=== PATIENT | female | born 1955 | race Caucasian/White ===

== ENCOUNTER 2017-08-09 21:27 | Emergency (ER) | payer OTHER ==
--- NOTE | 2017-08-09 21:49 | ERPHSYRPT ---
- History of Present Illness Time Seen by Provider: 08/09/17 21:40 Source: patient Exam Limitations: no limitations Physician History: 61 y/o female comes to the ER with complaints of fever and chills for the past few days. Pt also admits to having nausea, but no vomiting, shortness of breath , abdominal pain, diarrhea, or urinary symptoms. Pt states having mild cough with diffuse muscle aches and weakness. Pt was seen by her PCP and was put on levaquin for sinusitis. Timing/Duration: day(s) Fever Severity: mild Fever Therapy PROVER: Acetaminophen Associated Symptoms: cough, nausea/vomiting Allergies/Adverse Reactions: cefaclor [From Ceclor] Allergy (Verified 08/09/17 22:11) cephalexin monohydrate [From Keflex] Allergy (Verified 08/09/17 22:11) erythromycin base [Erythromycin Base] Allergy (Verified 08/09/17 22:11) erythromycin estolate [From Ilosone] Allergy (Verified 08/09/17 22:11) iron Allergy (Verified 08/09/17 22:11) latex Allergy (Verified 08/09/17 22:11) oxytetracycline [From Terramycin] Allergy (Verified 08/09/17 22:11) oxytetracycline HCl [From Terramycin] Allergy (Verified 08/09/17 22:11) Penicillins Allergy (Verified 08/09/17 22:11) Sulfa (Sulfonamide Antibiotics) Allergy (Verified 08/09/17 22:11) Home Medications: Levothyroxine Sodium 50 Mcg [Synthroid 50 Mcg] 50 mcg PO DAILY 12/16/12 [ History] Atorvastatin Calcium [Lipitor] 20 mg PO DAILY 08/09/17 [History] Citalopram Hydrobromide 20 mg* [ceLEXa 20 MG] 20 mg PO DAILY 08/09/17 [ History] Isosorbide Mononitrate [Isosorbide Mononitrate ER] 30 mg DAILY 08/09/17 [History ] Lisinopril [Zestril] 2.5 mg PO DAILY 08/09/17 [History] Hx Tetanus, Diphtheria Vaccination/Date Given: No Hx Influenza Vaccination/Date Given: Yes Hx Pneumococcal Vaccination/Date Given: No - Review of Systems Constitutional: Fever, Chills, Weakness Eyes: No Symptoms Ears, Nose, & Throat: No Symptoms, No Throat Swelling Respiratory: Cough, No Dyspnea, No Dyspnea on Exertion (SEBASTIAN) Cardiac: No Chest Pain, No Edema, No Syncope Abdominal/Gastrointestinal: No Abdominal Pain, No Nausea, No Vomiting, No Diarrhea Genitourinary Symptoms: No Dysuria Musculoskeletal: Myalgias, No Back Pain, No Neck Pain Skin: No Symptoms, No Rash Neurological: No Dizziness, No Focal Weakness, No Sensory Changes Psychological: No Symptoms Endocrine: No Symptoms All Other Systems: Reviewed and Negative - Past Medical History Pertinent Past Medical History: Yes Endocrine Medical History: Hyperthyroidism Psycho-Social History: Depression - Past Surgical History Past Surgical History: Yes Female Surgical History: Hysterectomy Other Surgical History: TUBES IN EARS X2, TONSILLECTOMY, EAR SURGERY-EAR LOBE REPAIRED, CYST REMOVED OFF TAILBONE, - Social History Smoking Status: Never smoker Exposure to second hand smoke: No Drug Use: none Patient Lives Alone: No - Nursing Vital Signs Nursing Vital Signs: Initial Vital Signs Temperature 102.9 F 08/09/17 21:59 Pulse Rate 90 08/09/17 21:59 Respiratory Rate 18 08/09/17 21:59 Blood Pressure 167/81 08/09/17 21:59 O2 Sat by Pulse Oximetry 98 08/09/17 21:59 Pain Scale Pain Intensity 0 - Physical Exam General Appearance: no apparent distress, alert Eye Exam: PERRL/EOMI ENT Exam: normal ENT inspection, No pharyngeal erythema, No tonsillar exudate Neck Exam: normal inspection, non-tender, supple, full range of motion, No meningismus Respiratory Exam: normal breath sounds, chest non-tender, lungs clear, no respiratory distress Cardiovascular/Chest Exam: normal heart sounds, regular rate/rhythm, No murmur, No edema Gastrointestinal/Abdominal Exam: soft, non tender, no distention Extremity Exam: non-tender, normal range of motion, normal inspection, normal capillary refill Neurologic Exam: alert, oriented x 3, cooperative, travel writer II-XII nml as tested, normal mood/affect, sensation nml, No motor deficits Skin Exam: normal color, warm, dry, No rash - Course Nursing assessment & vital signs reviewed: Yes Ordered Tests: Active Orders 24 hr Category Date Time Status IV Insertion STAT Care 08/09/17 21:45 Active CHEST 2 VIEWS (PA AND LAT) Stat Exams 03/01/18 22:17 Taken CHEST WITHOUT CONTRAST [CT] Stat Exams 08/09/17 23:59 Taken BLOOD CULTURE Stat Lab 08/09/17 22:09 Received CBC W DIFF Stat Lab 08/09/17 22:08 Completed CMP Stat Lab 08/09/17 22:08 Completed CRP, HIGH SENSITIVITY Stat Lab 08/09/17 22:30 Completed CULTURE, THROAT Stat Lab 08/09/17 22:08 Received CULTURE,URINE Stat Lab 08/09/17 22:08 Received Manual Differential NC Stat Lab 08/09/17 22:08 Completed [place] Screen Stat Lab 08/09/17 22:08 Completed SED RATE [Erythrocyte Sedimentation Rate] Stat Lab 08/09/17 22:30 Completed STREP SCREEN-BETA A Stat Lab 08/09/17 22:08 Completed T4 Stat Lab 08/09/17 22:30 Completed TSH, 3RD Generation Stat Lab 08/09/17 22:30 Completed UA W/ MICROSCOPIC Stat Lab 08/09/17 22:08 Completed Medication Summary Generic Name Dose Route Start Last Admin Trade Name Freq PRN Reason Stop Dose Admin Levofloxacin/Dextrose 500 mg in 100 mls @ 100 mls/hr 08/10/17 01:10 08/10/17 01:52 Levofloxacin 500mg/100ml D5w IV 08/10/17 02:09 100 mls/hr STAT STA Administration Discontinued Medications Generic Name Dose Route Start Last Admin Trade Name Freq PRN Reason Stop Dose Admin Acetaminophen 1,000 mg 08/09/17 21:52 08/09/17 22:07 Tylenol Extra Strength 500 Mg PO 08/09/17 21:53 1,000 mg STAT STA Administration Acetaminophen Confirm 08/09/17 22:05 Tylenol Extra Strength 500 Mg Administered 08/09/17 22:06 Dose 1,000 mg .ROUTE .STK-MED ONE Metronidazole 500 mg in 100 mls @ 200 mls/hr 08/10/17 01:10 08/10/17 01:23 Flagyl 500 Mg Ivpb IV 08/10/17 01:39 200 mls/hr STAT STA Administration Metronidazole Confirm 08/10/17 01:21 Flagyl 500 Mg Ivpb Administered 08/10/17 01:22 Dose 500 mg in 100 mls @ ud IV .STK-MED ONE Levofloxacin/Dextrose Confirm 08/10/17 01:40 Levofloxacin 500mg/100ml D5w Administered 08/10/17 01:41 Dose 500 mg in 100 mls @ ud IV .STK-MED ONE Ibuprofen 600 mg 08/09/17 23:36 08/09/17 23:42 Motrin 100 Mg/5 Ml PO 08/09/17 23:37 600 mg STAT ONE Administration Ibuprofen Confirm 08/09/17 23:39 Motrin 100 Mg/5 Ml Administered 08/09/17 23:40 Dose 100 mg .ROUTE .STK-MED ONE Ondansetron HCl 4 mg 08/09/17 21:51 08/09/17 22:09 Zofran 4 Mg/2 Ml Vial IV 08/09/17 21:52 4 mg STAT ONE Administration Ondansetron HCl Confirm 08/09/17 22:08 Zofran 4 Mg/2 Ml Vial Administered 08/09/17 22:09 Dose 4 mg .ROUTE .STK-MED ONE Lab/Rad Data: Laboratory Result Diagrams 08/09/17 22:08 08/09/17 22:08 Laboratory Results 08/09/17 08/09/17 08/09/17 Range/Units 22:30 22:30 22:08 WBC (4.0-10.5) K/mm3 RBC (4.1-5.4) M/mm3 Hgb (12.0-16.0) gm/dl Hct (35-47) % MCV (78-100) fl MCH (26-32) pg MCHC (32-36) g/dl RDW (11.5-14.0) % Plt Count (150-450) K/mm3 MPV (6-9.5) fl Segmented Neutrophils (36.0-66.0) % Band Neutrophils (0.0-2.0) % Lymphocytes (Manual) (24-44) % Monocytes (Manual) (0.0-12.0) % Eosinophils (Manual) (0.00-3.0) % Differential Comment Atypical Lymphocytes % Platelet Estimate (NORMAL) ESR 3 (0-20) mm/hr Sodium (136-145) mEq/L Potassium (3.5-5.1) mEq/L Chloride (98-107) mEq/L Carbon Dioxide (21-32) mEq/L Anion Gap (5-15) MEQ/L BUN (9-20) mg/dL Creatinine (0.55-1.30) mg/dl Estimated GFR ML/MIN Glucose (70-110) MG/DL Calcium (8.5-10.1) mg/dL Total Bilirubin (0.2-1.0) mg/dL AST (15-37) U/L ALT (12-78) U/L Alkaline Phosphatase (46-116) U/L C-React Prot High Sens 6.38 H (0.0-3.0) mg/L Serum Total Protein (6.4-8.2) gm/dL Albumin (3.4-5.0) g/dL Thyroxine (T4) 10.6 (4.7-13.3) UG/DL TSH 3rd Generation 0.607 (0.358-3.740) mIU/L Ur Collection Type Urine Color (YELLOW) Urine Appearance (CLEAR) Urine pH (5-6) Ur Specific [place] (1.005-1.025) Urine Protein (Negative) Urine Ketones (NEGATIVE) Urine Blood (0-5) Matt/ul Urine Nitrite (NEGATIVE) Urine Bilirubin (NEGATIVE) Urine Urobilinogen (0-1) mg/dL Ur Leukocyte Esterase (NEGATIVE) Urine Microscopic RBC (0-2) /HPF Urine Microscopic WBC (0-5) /HPF Ur Epithelial Cells (FEW) /HPF Calcium Oxalate Crystal (NEGATIVE) /HPF Urine Bacteria (NEGATIVE) /HPF Urine Mucus (NEGATIVE) /HPF Urine Culture Reflexed (NO) Urine Glucose (NEGATIVE) mg/dL Monoscreen (Negative) Influenza Type A Ag NEGATIVE (NEGATIVE) Influenza Type B Ag NEGATIVE (NEGATIVE) RSV (PCR) NEGATIVE (Negative) Streptococcus Screen (Negative) Specimen Received 08/09/17 08/09/17 08/09/17 Range/Units 22:08 22:08 22:08 WBC (4.0-10.5) K/mm3 RBC (4.1-5.4) M/mm3 Hgb (12.0-16.0) gm/dl Hct (35-47) % MCV (78-100) fl MCH (26-32) pg MCHC (32-36) g/dl RDW (11.5-14.0) % Plt Count (150-450) K/mm3 MPV (6-9.5) fl Segmented Neutrophils (36.0-66.0) % Band Neutrophils (0.0-2.0) % Lymphocytes (Manual) (24-44) % Monocytes (Manual) (0.0-12.0) % Eosinophils (Manual) (0.00-3.0) % Differential Comment Atypical Lymphocytes % Platelet Estimate (NORMAL) ESR (0-20) mm/hr Sodium (136-145) mEq/L Potassium (3.5-5.1) mEq/L Chloride (98-107) mEq/L Carbon Dioxide (21-32) mEq/L Anion Gap (5-15) MEQ/L BUN (9-20) mg/dL Creatinine (0.55-1.30) mg/dl Estimated GFR ML/MIN Glucose (70-110) MG/DL Calcium (8.5-10.1) mg/dL Total Bilirubin (0.2-1.0) mg/dL AST (15-37) U/L ALT (12-78) U/L Alkaline Phosphatase (46-116) U/L C-React Prot High Sens (0.0-3.0) mg/L Serum Total Protein (6.4-8.2) gm/dL Albumin (3.4-5.0) g/dL Thyroxine (T4) (4.7-13.3) UG/DL TSH 3rd Generation (0.358-3.740) mIU/L Ur Collection Type VOID Urine Color YELLOW (YELLOW) Urine Appearance CLEAR (CLEAR) Urine pH 5.0 (5-6) Ur Specific [place] 1.020 (1.005-1.025) Urine Protein NEGATIVE (Negative) Urine Ketones NEGATIVE (NEGATIVE) Urine Blood 50 (0-5) Matt/ul Urine Nitrite NEGATIVE (NEGATIVE) Urine Bilirubin NEGATIVE (NEGATIVE) Urine Urobilinogen NORMAL (0-1) mg/dL Ur Leukocyte Esterase NEGATIVE (NEGATIVE) Urine Microscopic RBC 2-5 (0-2) /HPF Urine Microscopic WBC 0-2 (0-5) /HPF Ur Epithelial Cells MODERATE (FEW) /HPF Calcium Oxalate Crystal 0-2 (NEGATIVE) /HPF Urine Bacteria MODERATE (NEGATIVE) /HPF Urine Mucus MODERATE (NEGATIVE) /HPF Urine Culture Reflexed YES (NO) Urine Glucose NEGATIVE (NEGATIVE) mg/dL Monoscreen NEGATIVE (Negative) Influenza Type A Ag (NEGATIVE) Influenza Type B Ag (NEGATIVE) RSV (PCR) (Negative) Streptococcus Screen NEGATIVE (Negative) Specimen Received 08/09/17220908/09/17 08/09/17 Range/Units 22:08 22:08 WBC 3.2 L (4.0-10.5) K/mm3 RBC 4.65 (4.1-5.4) M/mm3 Hgb 14.8 (12.0-16.0) gm/dl Hct 42.4 (35-47) % MCV 91.2 (78-100) fl MCH 31.8 (26-32) pg MCHC 34.9 (32-36) g/dl RDW 12.7 (11.5-14.0) % Plt Count 126 L (150-450) K/mm3 MPV 9.7 H (6-9.5) fl Segmented Neutrophils 58 (36.0-66.0) % Band Neutrophils 16 H (0.0-2.0) % Lymphocytes (Manual) 7 L (24-44) % Monocytes (Manual) 10 (0.0-12.0) % Eosinophils (Manual) 4 H (0.00-3.0) % Differential Comment NORMAL Atypical Lymphocytes 5 % Platelet Estimate NORMAL (NORMAL) ESR (0-20) mm/hr Sodium 138 (136-145) mEq/L Potassium 4.3 (3.5-5.1) mEq/L Chloride 101 (98-107) mEq/L Carbon Dioxide 26.3 (21-32) mEq/L Anion Gap 14.6 (5-15) MEQ/L BUN 12 (9-20) mg/dL Creatinine 1.23 (0.55-1.30) mg/dl Estimated GFR 47 ML/MIN Glucose 108 (70-110) MG/DL Calcium 9.0 (8.5-10.1) mg/dL Total Bilirubin 0.70 (0.2-1.0) mg/dL AST 33 (15-37) U/L ALT 28 (12-78) U/L Alkaline Phosphatase 90 (46-116) U/L C-React Prot High Sens (0.0-3.0) mg/L Serum Total Protein 7.3 (6.4-8.2) gm/dL Albumin 3.8 (3.4-5.0) g/dL Thyroxine (T4) (4.7-13.3) UG/DL TSH 3rd Generation (0.358-3.740) mIU/L Ur Collection Type Urine Color (YELLOW) Urine Appearance (CLEAR) Urine pH (5-6) Ur Specific [place] (1.005-1.025) Urine Protein (Negative) Urine Ketones (NEGATIVE) Urine Blood (0-5) Matt/ul Urine Nitrite (NEGATIVE) Urine Bilirubin (NEGATIVE) Urine Urobilinogen (0-1) mg/dL Ur Leukocyte Esterase (NEGATIVE) Urine Microscopic RBC (0-2) /HPF Urine Microscopic WBC (0-5) /HPF Ur Epithelial Cells (FEW) /HPF Calcium Oxalate Crystal (NEGATIVE) /HPF Urine Bacteria (NEGATIVE) /HPF Urine Mucus (NEGATIVE) /HPF Urine Culture Reflexed (NO) Urine Glucose (NEGATIVE) mg/dL Monoscreen (Negative) Influenza Type A Ag (NEGATIVE) Influenza Type B Ag (NEGATIVE) RSV (PCR) (Negative) Streptococcus Screen (Negative) Specimen Received - Progress Progress: improved Progress Note: 08/10/17 00:52 The repeat temp after receiving tylenol was still high at 102. However, after the patient received motrin, patient's temp came down to 99.6. Pt was given zofran which helped with the nausea. Pt has a white count of 3.2 and a platelet count of 126. The rest of fever workup has been unremarkable, including negative mono, RSV, influenza, rapid strep, CXR and UA. The CXR is unremarkable. The CT chest shows a 2 mm left lower lobe pulmonary nodules. 08/10/17 01:[address] abd/pelvis shows a small area of sigmoid diverticulitis. The patient will be started on levaquin and flagyl. 08/10/17 02:05 Pt will be sent home on flagyl and levaquin for diverticulitis - Departure Time of Disposition: 02:06 Departure Disposition: Home Clinical Impression: Diverticulitis Fever Qualifiers: Fever type: unspecified Qualified Code(s): R50.9 - Fever, unspecified Condition: Stable Critical Care Time: No Referrals: TONO GARCIAS [Primary Care Provider] - Instructions: Fever, Adult (DC), Diverticulitis (DC) Additional Instructions: Return to the ER if you should have worsening abdominal pain, nausea, vomiting, fever or chills. Finish the antibiotics until completion. Prescriptions: Levofloxacin [Levaquin] 500 mg PO DAILY #7 tablet Metronidazole [Flagyl] 500 mg PO BID #14 tablet
[2017-08-09] MEDS ORDERED: Zofran 4 MG/2 ML VIAL IV ONE (21:51)
[2017-08-09] MEDS ORDERED: TYLENOL EXTRA STRENGTH 500 MG PO STA (21:52)
[2017-08-09] MEDS ORDERED: TYLENOL EXTRA STRENGTH 500 MG ONE (22:05)
[2017-08-09] MEDS ORDERED: Zofran 4 MG/2 ML VIAL ONE (22:08)
[2017-08-09 22:13] LABS: Granulocyte Absolute (ANC) 2.26 (1.4-6.9); Hematocrit 42.4 % (35-47); Hemoglobin 14.8 gm/dl (12.0-16.0); Mean Cell Volume 91.2 fl (78-100); Mean Corpuscular Hemoglobin 31.8 pg (26-32); Mean Corpuscular Hgb Concent. 34.9 g/dl (32-36); Mean Platelet Volume 9.7 fl (6-9.5); Platelet Count 126 K/mm3 (150-450); Red Blood Count 4.65 M/mm3 (4.1-5.4); Red Cell Distribution Width 12.7 % (11.5-14.0); White Blood Count 3.2 K/mm3 (4.0-10.5)
[2017-08-09 22:39] LABS: ALBUMIN 3.8 g/dL (3.4-5.0); ANION GAP 14.6 MEQ/L (5-15); BILIRUBIN,TOTAL 0.7 mg/dL (0.2-1.0); Carbon Dioxide 26.3 mEq/L (21-32); Creatinine 1 1.23 mg/dl (0.55-1.30); Potassium 4.3 mEq/L (3.5-5.1); Total Protein 7.3 gm/dL (6.4-8.2)
[2017-08-09 22:51] LABS: INFLUENZA A NEGATIVE (NEGATIVE); INFLUENZA B NEGATIVE (NEGATIVE); RESPIRATORY SYNCTIAL VIRUS NEGATIVE (Negative)
[2017-08-09 22:57] LABS: Appearance CLEAR (CLEAR); Bilirubin NEGATIVE (NEGATIVE); Blood 50 Ery/ul (0-5); Glucose NEGATIVE (NEGATIVE); Ketones NEGATIVE (NEGATIVE); Leukocyte Esterase NEGATIVE (NEGATIVE); Nitrite NEGATIVE (NEGATIVE); Protein,Urine Dip NEGATIVE (Negative); Urobilinogen NORMAL mg/dL (0-1)
[2017-08-09 22:58] LABS: Bacteria MODERATE /HPF (NEGATIVE); CALCIUM OXALATE CRYSTALS 0-2 /HPF (NEGATIVE); Epithelial Cells MODERATE /HPF (FEW); Mucus MODERATE /HPF (NEGATIVE); WBC 0-2 /HPF (0-5)
[2017-08-09 23:20] LABS: ATYPICAL LYMPHS 5 %; BAND 16 % (0.0-2.0); Eosinophil 4 % (0.00-3.0); Lymphocytes 7 % (24-44); Monocyte 10 % (0.0-12.0); Neutrophils 58 % (36.0-66.0); Total Cells Counted 100
[2017-08-09 23:21] LABS: Platelet Estimate NORMAL (NORMAL)
[2017-08-09] MEDS ORDERED: Motrin 100 MG/5 ML PO ONE (23:36)
[2017-08-09] MEDS ORDERED: Motrin 100 MG/5 ML ONE (23:39)
[2017-08-09 23:47] LABS: T4 10.6 UG/DL (4.7-13.3); TSH, 3RD Generation 0.607 mIU/L (0.358-3.740)
[2017-08-10] MEDS ORDERED: FLAGYL 500 MG IVPB 500 MG/100 ML BAG IV STA (01:10)
[2017-08-10] MEDS ORDERED: Levofloxacin 500MG/100ML D5W 500 MG/100 ML BAG IV STA (01:10)
[2017-08-10] MEDS ORDERED: FLAGYL 500 MG IVPB 500 MG/100 ML BAG IV ONE (01:21)
[2017-08-10] MEDS ORDERED: Levofloxacin 500MG/100ML D5W 500 MG/100 ML BAG IV ONE (01:40)
[2017-08-10 03:02] VITALS: BP 135/75; PULSE 70; O2SAT 97
--- NOTE | 2017-08-10 20:36 | XRAY ---
Exam: Two-view chest from 08/09/2017. Comparison: AP upright portable chest film from 12/16/2012. Indication: Fever, no other chest complaints. Findings: Upright PA and lateral chest films are submitted for evaluation. The transverse heart size appears borderline enlarged. There appears to be a small calcified lymph node or granuloma adjacent to the anterior aspect of the aortic arch. Some small granulomatous calcifications overlie the inferior margin of the left hilum and the left lung base. The remainder the tomer and mediastinal structures appears unremarkable and unchanged from 12/16/2012. There is average inflation of the lungs. Slight elevation/eventration of the anterior aspect of the right hemidiaphragm is seen. No air space infiltrates, abnormal soft tissue lung nodularity, vascular congestion, pneumothorax, or pleural fluid is seen. The bones are demineralized. No acute osseous process is seen. Impression: 1. Borderline cardiomegaly representing no significant interval change. I see no findings of heart failure or pneumonia. No other acute lung disease is seen. There is evidence of some old granulomatous disease on the left.
--- NOTE | 2017-08-10 23:19 | XRAY ---
Exam: CT of the chest without IV contrast from 08/09/2017. CTDI: 6.47 Comparison: Two-view chest series from 08/09/2017. Indication: 61-year-old female with fever, nausea, history of bleeding ulcer in 2016. Surgical history includes prior hysterectomy and appendectomy. Technique: Non-IV contrast axial images were obtained through the chest. Reconstructed coronal and sagittal images were created and reviewed. Findings: The heart size is slightly enlarged without pericardial effusion. I see no abnormal bulky perihilar or mediastinal lymphadenopathy. The thyroid gland appears grossly unremarkable. Some granulomatous calcifications are seen within the left side of the superior mediastinum, adjacent to the aortic arch, the AP window, left hilum, and the left lower lobe. The central airways appear open. No air space infiltrates, pneumothorax, or pleural effusion is seen. There is a 2 mm subpleural nonspecific soft tissue nodule posterolaterally at the left lung base on axial image #3 and a second similar subpleural 2 mm soft tissue nodule posterior laterally at left lung base on axial image #38. These are of doubtful significance. Minimal linear scarring/atelectasis is seen at both lung bases. There is also a 3.5 mm noncalcified nodule within the peripheral right upper lung field, best seen on coronal image #38, although I believe it is partially seen on axial image #17 as well. This also is nonspecific and probably of doubtful significance. If the patient is at low risk for developing lung cancer, no follow-up is needed. If the patient is at high risk, an optional CT could be obtained in 12 months. The upper abdomen reveals an unremarkable appearance of the adrenal glands. There is marked atrophy of the left kidney, which also contains a tiny punctate calcification within its central aspect. Numerous granulomatous calcifications are seen within the spleen. Impression: 1. Minimal cardiomegaly. 2. Old healed granulomatous disease on the left and some minor linear scarring/plate atelectasis at both lung bases are seen. 3. No active lung disease is seen. 3. A 3.5 mm nodule is seen within the anterior lateral right upper lung field on axial image #17 and 2 additional 2 mm subpleural soft tissue nodules are seen posterior laterally within the left lower lobe on axial images #33 in #38. These are of doubtful significance. However, see above discussion.
--- NOTE | 2017-08-10 23:52 | XRAY ---
Exam: CT of the abdomen and pelvis without IV contrast from 08/09/2017. Comparison: CT of the abdomen without and with IV contrast from 07/21/2011. Indication: 61-year-old female with fever, nausea, history of prior bleeding ulcer in 2016; history of prior appendectomy and hysterectomy. Technique: Non-IV contrast axial images were obtained through the abdomen and pelvis without IV contrast. Reconstructed coronal and sagittal images were created and reviewed. Findings: Please see CT of the chest report for findings within the lower thorax. The liver appears unremarkable. The gallbladder is partially distended and reveals no dense calcifications within it. The spleen measures 11.9 cm in greatest cross section suggesting that it is at the upper limits of normal in size. Numerous calcified granulomas are seen within the spleen. The pancreas and adrenal glands appear unremarkable. The right kidney appears of unremarkable size and is remarkable for some small peripelvic cysts. These have regressed in size as compared to the CT from 07/21/2011 representing improvement. The left kidney is dysplastic and markedly atrophic representing no change. A punctate calcification is seen within the left kidney. The right ureter appears of normal diameter and reveals no ureterolith. The urinary bladder is partially distended and reveals no calcifications, mass, or bladder wall thickening. Mild tortuosity of the abdominal aorta is seen. Minimal atherosclerotic vascular calcification is seen within the distal abdominal aorta. No abdominal aortic aneurysm or abnormal retroperitoneal lymphadenopathy is seen. The anterior abdominal wall appears intact. No free intraperitoneal air is seen. The appendix is not seen within the right lower quadrant, consistent with patient's history of prior appendectomy. The bowel is not distended. Liquid and solid stool are seen within the colon. On axial images #59 and #60, there is a single sigmoid colon diverticulum with some adjacent fluid/edema. The possibility of focal diverticulitis is not excluded. I see no free air or drainable fluid collection. The uterus is surgically absent. Neither ovary is seen. Pelvic lymph nodes are not enlarged. No significant fluid is seen within the cul-de-sac, although there may be a scant amount on the right. The inguinal regions appear unremarkable. The skeleton reveals no acute fracture or aggressive bone lesion. Lower lumbar facet joint arthropathy is seen at L3-L4 and L4-L5. I also note mild multilevel degenerative disc disease at L1-L2, L2-L3, and L3-L4. L5 represents a transitional vertebra with sacralization on the left on the coronal images. Impression: 1. There is a single sigmoid diverticulum with surrounding edema within the deep left lower quadrant which most likely represents uncomplicated diverticulitis. See axial images #58 through #61. I see no bowel perforation or drainable fluid collection. 2. Dysplastic, markedly atrophied left kidney with tiny punctate calcification within it. This is unchanged from 2012. 3. The right kidney is remarkable for some small peripelvic cysts. These cysts have regressed in size as compared to 07/21/2011. I see no acute obstructive uropathy on the right. 4. Other incidental findings, as discussed above.
== END 2017-08-10 03:20 | disposition home or self-care (01) ==
LOC: ED 21:27
DX: K57.32 Diverticulitis of large intestine without perforation or abscess without bleeding (principal); R50.9 Fever, unspecified; R11.0 Nausea; R91.1 Solitary pulmonary nodule; R06.02 Shortness of breath; R05 Cough; R53.1 Weakness
CPT/HCPCS: 36000; 36415; 71046; 71250; 74176; 80053; 81000; 84436; 84443; 85025; 85652; 86140; 86308; 87040; 87070; 87086; 87430; 87631; 96365; 96367; 96374; 99284; J1956; J2405; A9270-GY

== ENCOUNTER 2017-08-10 14:12 | Inpatient (IN) | payer OTHER ==
--- NOTE | 2017-08-10 14:35 | ERPHSYRPT ---
- History of Present Illness Time Seen by Provider: 08/10/17 14:30 Historian: patient Exam Limitations: no limitations Patient Subjective Stated Complaint: her for nausea, loost stools, and fever at 1300 today, pt was dx at 0300 today for diverticulitis and is unable to keep meds down Triage Nursing Assessment: pt alert, walked in, resp easy, skin w/d/p. able to keep fluids down, mucus membranes moist, in no distress Physician History: 61 y/o female comes back to the ER with complaints of nausea, vomiting, diarrhea and fever that started this morning. Pt was seen last night and was diagnosed with sigmoid diverticulitis. Pt had improved last night but then this morning, patient vomited 3 times and had diarrhea 3 times. Pt had a temp of 100. Pt states that she is unable to keep anything down. Timing/Duration: today Activities at Onset: none Modifying Factors: Improves With: vomiting Associated Symptoms: loss of appetite, nausea, vomiting Allergies/Adverse Reactions: cefaclor [From Ceclor] Allergy (Verified 08/10/17 14:28) cephalexin monohydrate [From Keflex] Allergy (Verified 08/10/17 14:28) erythromycin base [Erythromycin Base] Allergy (Verified 08/10/17 14:28) erythromycin estolate [From Ilosone] Allergy (Verified 08/10/17 14:28) iron Allergy (Verified 08/10/17 14:28) latex Allergy (Verified 08/10/17 14:28) oxytetracycline [From Terramycin] Allergy (Verified 08/10/17 14:28) oxytetracycline HCl [From Terramycin] Allergy (Verified 08/10/17 14:28) Penicillins Allergy (Verified 08/10/17 14:28) Sulfa (Sulfonamide Antibiotics) Allergy (Verified 08/10/17 14:28) Home Medications: Levothyroxine Sodium 50 Mcg [Synthroid 50 Mcg] 50 mcg PO DAILY 12/16/12 [ History] Atorvastatin Calcium [Lipitor] 20 mg PO DAILY 08/09/17 [History] Citalopram Hydrobromide 20 mg* [ceLEXa 20 MG] 20 mg PO DAILY 08/09/17 [ History] Isosorbide Mononitrate [Isosorbide Mononitrate ER] 30 mg DAILY 08/09/17 [History ] Lisinopril [Zestril] 2.5 mg PO DAILY 08/09/17 [History] Hx Tetanus, Diphtheria Vaccination/Date Given: No Hx Influenza Vaccination/Date Given: Yes Hx Pneumococcal Vaccination/Date Given: No Immunizations Up to Date: Yes - Review of Systems Constitutional: Weakness, No Fever, No Chills Eyes: No Symptoms Ears, Nose, & Throat: No Symptoms Respiratory: No Cough, No Dyspnea Cardiac: No Chest Pain, No Edema, No Syncope Abdominal/Gastrointestinal: Nausea, Vomiting, Diarrhea, Appetite Changes, No Abdominal Pain Genitourinary Symptoms: No Dysuria Musculoskeletal: No Back Pain, No Neck Pain Skin: No Rash Neurological: No Dizziness, No Focal Weakness, No Sensory Changes Psychological: No Symptoms Endocrine: No Symptoms All Other Systems: Reviewed and Negative - Past Medical History Pertinent Past Medical History: Yes Cardiac History: High Cholesterol, Hypertension Endocrine Medical History: Hyperthyroidism Psycho-Social History: Depression - Past Surgical History Past Surgical History: Yes Female Surgical History: Hysterectomy Other Surgical History: TUBES IN EARS X2, TONSILLECTOMY, EAR SURGERY-EAR LOBE REPAIRED, CYST REMOVED OFF TAILBONE, - Social History Smoking Status: Never smoker Exposure to second hand smoke: No Drug Use: none Patient Lives Alone: No - Female History Hx Last Menstrual Period: post Hx Now: No - Nursing Vital Signs Nursing Vital Signs: Initial Vital Signs Temperature 98.1 F 08/10/17 14:17 Pulse Rate 87 08/10/17 14:17 Respiratory Rate 16 08/10/17 14:17 Blood Pressure 120/63 08/10/17 14:17 O2 Sat by Pulse Oximetry 96 08/10/17 14:17 Pain Scale Pain Intensity 0 - Physical Exam General Appearance: mild distress, alert Eye Exam: PERRL/EOMI, eyes nml inspection Ears, Nose, Throat Exam: normal ENT inspection, pharynx normal, moist mucous membranes Neck Exam: normal inspection, non-tender, supple, full range of motion Respiratory Exam: normal breath sounds, lungs clear, No respiratory distress Cardiovascular Exam: regular rate/rhythm, normal heart sounds Gastrointestinal/Abdomen Exam: soft, normal bowel sounds, No tenderness, No distention, No mass Back Exam: normal inspection, normal range of motion, No CVA tenderness, No vertebral tenderness Extremity Exam: normal inspection, normal range of motion, pelvis stable Neurologic Exam: alert, oriented x 3, cooperative, normal mood/affect, nml cerebellar function, sensation nml, No motor deficits Skin Exam: normal color, warm, dry SpO2: 96 Oxygen Delivery: Room Air - Course Nursing assessment & vital signs reviewed: Yes Ordered Tests: Active Orders 24 hr Category Date Time Status IV Insertion STAT Care 08/10/17 14:36 Active CBC W DIFF Stat Lab 08/10/17 14:58 Completed CMP Stat Lab 08/10/17 14:58 Received Manual Differential NC Stat Lab 08/10/17 14:58 Completed Medication Summary Generic Name Dose Route Start Last Admin Trade Name Freq PRN Reason Stop Dose Admin Sodium Chloride 1,000 mls @ 100 mls/hr 08/10/17 14:45 08/10/17 15:12 Sodium Chloride 0.9% 1000 Ml IV 09/09/17 14:44 100 mls/hr .Q10H ADOLFO Administration Discontinued Medications Generic Name Dose Route Start Last Admin Trade Name Freq PRN Reason Stop Dose Admin Ondansetron HCl 4 mg 08/10/17 14:36 08/10/17 15:12 Zofran 4 Mg/2 Ml Vial IV 08/10/17 14:37 4 mg STAT ONE Administration Ondansetron HCl Confirm 08/10/17 15:06 Zofran 4 Mg/2 Ml Vial Administered 08/10/17 15:07 Dose 4 mg .ROUTE .STK-MED ONE Lab/Rad Data: Laboratory Result Diagrams 08/10/17 14:58 Laboratory Results 08/10/17 Range/Units 14:58 WBC 2.5 L (4.0-10.5) K/mm3 RBC 4.54 (4.1-5.4) M/mm3 Hgb 14.6 (12.0-16.0) gm/dl Hct 41.3 (35-47) % MCV 91.0 (78-100) fl MCH 32.2 H (26-32) pg MCHC 35.4 (32-36) g/dl RDW 12.6 (11.5-14.0) % Plt Count 109 L (150-450) K/mm3 MPV 10.2 H (6-9.5) fl - Progress Progress: improved Progress Note: 08/10/17 15:23 The patient was not able to keep her antibiotics down with a diagnosis of diverticulitis. Pt has received a dose of levaquin and flagyl. Pt has been admitted to Dr Arana for diverticulitis. - Departure Time of Disposition: 15:24 Departure Disposition: In-patient Admission Clinical Impression: Diverticulitis Condition: Stable Critical Care Time: No Referrals: TONO ARANA [Primary Care Provider] -
[2017-08-10] MEDS ORDERED: Zofran 4 MG/2 ML VIAL IV ONE (14:36)
[2017-08-10] MEDS ORDERED: Zofran 4 MG/2 ML VIAL ONE (15:06)
[2017-08-10 15:10] LABS: Hematocrit 41.3 % (35-47); Hemoglobin 14.6 gm/dl (12.0-16.0); Mean Corpuscular Hemoglobin 32.2 pg (26-32); Mean Corpuscular Hgb Concent. 35.4 g/dl (32-36); Mean Platelet Volume 10.2 fl (6-9.5); Platelet Count 109 K/mm3 (150-450); Red Blood Count 4.54 M/mm3 (4.1-5.4); Red Cell Distribution Width 12.6 % (11.5-14.0); White Blood Count 2.5 K/mm3 (4.0-10.5)
[2017-08-10] MEDS: Sodium Chloride 0.9% 1000 ML 1,000 ML IV SCH ×2 (15:12→23:34)
[2017-08-10] MEDS ORDERED: Levofloxacin 500MG/100ML D5W 500 MG/100 ML BAG IV STA (15:29)
[2017-08-10] MEDS ORDERED: FLAGYL 500 MG IVPB 500 MG/100 ML BAG IV STA (15:29)
[2017-08-10] MEDS ORDERED: Sodium Chloride 0.9% 1000 ML 1,000 ML IV SCH (15:30)
[2017-08-10 15:44] LABS: BAND 18 % (0.0-2.0); Eosinophil 6 % (0.00-3.0); Lymphocytes 3 % (24-44); Monocyte 5 % (0.0-12.0); Neutrophils 68 % (36.0-66.0); Platelet Estimate DECREASED (NORMAL); Total Cells Counted 100
[2017-08-10 15:45] LABS: Granulocyte Absolute (ANC) 2.1 (1.4-6.9)
[2017-08-10 15:52] LABS: ALBUMIN 3.5 g/dL (3.4-5.0); ANION GAP 15.3 MEQ/L (5-15); BILIRUBIN,TOTAL 0.7 mg/dL (0.2-1.0); Calcium 9.1 mg/dL (8.5-10.1); Carbon Dioxide 23.5 mEq/L (21-32); Creatinine 1 1.41 mg/dl (0.55-1.30); Potassium 4.1 mEq/L (3.5-5.1); Total Protein 6.7 gm/dL (6.4-8.2)
[2017-08-10] MEDS ORDERED: Levofloxacin 500MG/100ML D5W 500 MG/100 ML BAG IV ONE (16:51)
[2017-08-10] MEDS: FLAGYL 500 MG IVPB 500 MG/100 ML BAG IV SCH ×2 (18:20→23:34)
[2017-08-10] MEDS: Phenergan 25 MG INJ IV PRN (18:41)
[2017-08-10] MEDS: SYNTHROID 50 MCG PO SCH (22:24)
[2017-08-10] MEDS: Zestril 5 MG PO SCH (22:24)
[2017-08-10] MEDS: Imdur 30 MG PO SCH (22:25)
[2017-08-10] MEDS: ZOCOR 20MG PO SCH (22:25)
[2017-08-10] MEDS: ceLEXa 20 MG PO SCH (22:25)
[2017-08-11] MEDS ORDERED: FEVERALL 650 MG PR PRN (01:00)
[2017-08-11 06:26] LABS: Hematocrit 37.6 % (35-47); Mean Cell Volume 91.7 fl (78-100); Mean Corpuscular Hemoglobin 31.7 pg (26-32); Mean Corpuscular Hgb Concent. 34.6 g/dl (32-36); Mean Platelet Volume 10.8 fl (6-9.5); Platelet Count 108 K/mm3 (150-450); Red Cell Distribution Width 12.6 % (11.5-14.0)
[2017-08-11] MEDS ORDERED: FLAGYL 500 MG IVPB 500 MG/100 ML BAG IV ONE (06:41)
[2017-08-11] MEDS: FLAGYL 500 MG IVPB 500 MG/100 ML BAG IV SCH ×4 (06:44→23:56)
[2017-08-11 06:59] LABS: ALBUMIN 2.8 g/dL (3.4-5.0); ANION GAP 15.6 MEQ/L (5-15); BILIRUBIN,TOTAL 0.6 mg/dL (0.2-1.0); Calcium 8.3 mg/dL (8.5-10.1); Carbon Dioxide 21.3 mEq/L (21-32); Creatinine 1 1.18 mg/dl (0.55-1.30); Total Protein 5.6 gm/dL (6.4-8.2)
[2017-08-11 09:26] LABS: BAND 28 % (0.0-2.0); Eosinophil 1 % (0.00-3.0); Lymphocytes 8 % (24-44); Monocyte 3 % (0.0-12.0); Neutrophils 60 % (36.0-66.0); Platelet Estimate DECREASED (NORMAL); Total Cells Counted 100
[2017-08-11] MEDS: Levofloxacin 500MG/100ML D5W 500 MG/100 ML BAG IV SCH (10:39)
--- NOTE | 2017-08-11 13:47 | PCM.HP ---
History of Present Illness - Chief Complaint Chief Complaint: Diverticulitis History of Present Illness: is a 61 year old female pt of mine from [facility] who was admitted through the ER for diverticulitis. She c/o having chills all night 4 d ago with fever to 103; no abd pain at that time. She did start having abd pain and diarrhea later in the week. Yesterday morning she had been in the ER, early, and was dx with diverticulitis and sent home with po antibiotics; however later in the day yesterday she started vomiting and returned to the ER and was admitted. She is feeling better this morning; no vomiting but some nausea. Pt started having a rash on her face, abd, and legs after the fever 4d ago. not itchy. - Review of Systems Constitutional: Fever, Chills Abdominal/Gastrointestinal: Abdominal Pain, Nausea, Vomiting, Diarrhea, Appetite Changes Neurological: Other (felt presyncopal at home) Psychological: No Anxiety, No Depression, No Suicidal Ideations All Other Systems: Reviewed and Negative Medications & Allergies Home Medications: Home Medication List Levothyroxine Sodium 50 Mcg [Synthroid 50 Mcg] 50 mcg PO DAILY 12/16/12 [ History Confirmed 08/10/17] Atorvastatin Calcium [Lipitor] 20 mg PO DAILY 08/09/17 [History Confirmed ] Citalopram Hydrobromide 20 mg* [ceLEXa 20 MG] 20 mg PO DAILY 08/09/17 [ History Confirmed 08/10/17] Isosorbide Mononitrate [Isosorbide Mononitrate ER] 30 mg DAILY 08/09/17 [ History Confirmed 08/10/17] Lisinopril [Zestril] 2.5 mg PO DAILY 08/09/17 [History Confirmed 08/10/17] Allergies/Adverse Reactions: Allergies Allergy/AdvReac Type Severity Reaction Status Date / Time cefaclor [From Ceclor] Allergy Verified 08/10/17 14:28 cephalexin monohydrate Allergy Verified 08/10/17 14:28 [From Keflex] erythromycin base Allergy Verified 08/10/17 14:28 [Erythromycin Base] erythromycin estolate Allergy Verified 08/10/17 14:28 [From Ilosone] iron Allergy Verified 08/10/17 14:28 latex Allergy Verified 08/10/17 14:28 oxytetracycline Allergy Verified 08/10/17 14:28 [From Terramycin] oxytetracycline HCl Allergy Verified 08/10/17 14:28 [From Terramycin] Penicillins Allergy Verified 08/10/17 14:28 Sulfa (Sulfonamide Allergy Verified 08/10/17 14:28 Antibiotics) - Past Medical History Past Medical History: Yes Cardiac History: High Cholesterol, Hypertension Endocrine Medical History: Hypothyroidism Pyscho-Social History: Depression - Female History Hx Last Menstrual Period: post Are you now?: No - Past Surgical History Past Surgical History: Yes Female Surgical History: Hysterectomy, Dilation & Curettage Other Surgical History: TUBES IN EARS X2, TONSILLECTOMY, EAR SURGERY-EAR LOBE REPAIRED, CYST REMOVED OFF TAILBONE, EGD w/clips for bleeding ulcer - Social History Smoking Status: Never smoker Exposure to second hand smoke: Yes Alcohol: None Drug Use: none - Physical Exam Vital Signs: Vital Signs - 24 hr Temp Pulse Resp BP Pulse Ox 08/11/17 13:04 99 F 75 18 112/56 97 08/11/17 07:13 99.4 F 70 18 100/56 97 08/11/17 04:00 99.0 F 75 16 98/51 96 08/11/17 00:20 100.0 F 78 22 116/58 98 08/10/17 20:10 98.3 F 71 24 122/51 98 08/10/17 20:00 98.3 F 71 24 122/51 98 08/10/17 17:05 98.1 F 72 16 132/61 98 08/10/17 16:43 72 16 123/50 97 08/10/17 16:00 78 18 120/70 98 08/10/17 15:29 96 08/10/17 14:17 98.1 F 87 16 120/63 96 General Appearance: no apparent distress, alert Neurologic Exam: oriented x 3, cooperative Eye Exam: eyes nml inspection Ears, Nose, Throat Exam: moist mucous membranes Neck Exam: normal inspection, non-tender, supple, No lymphadenopathy Respiratory Exam: normal breath sounds, lungs clear, No crackles/rales, No rhonchi, No wheezing Cardiovascular Exam: regular rate/rhythm, normal heart sounds, No murmur Gastrointestinal/Abdomen Exam: soft, normal bowel sounds, No tenderness, No distention, No mass, No guarding, No rebound Extremity Exam: No pedal edema, No swelling Skin Exam: warm, dry, rash (scattered very small macular erythematous non blanching macules on abdomen and upper legs. Face with generalized rough appearing mild erythema on forehead and around inferior nose) Results - Labs Lab/Micro Results: Lab Results-Last 24 Hours 08/11/17 08/11/17 08/11/17 Range/Units 05:00 05:20 05:20 WBC 2.0 L (4.0-10.5) K/mm3 RBC 4.10 (4.1-5.4) M/mm3 Hgb 13.0 (12.0-16.0) gm/dl Hct 37.6 (35-47) % MCV 91.7 (78-100) fl MCH 31.7 (26-32) pg MCHC 34.6 (32-36) g/dl RDW 12.6 (11.5-14.0) % Plt Count 108 L (150-450) K/mm3 MPV 10.8 H (6-9.5) fl Segmented Neutrophils 60 (36.0-66.0) % Band Neutrophils 28 H (0.0-2.0) % Lymphocytes (Manual) 8 L (24-44) % Monocytes (Manual) 3 (0.0-12.0) % Eosinophils (Manual) 1 (0.00-3.0) % Differential Comment NORMAL Platelet Estimate DECREASED (NORMAL) Sodium 141 (136-145) mEq/L Potassium 4.0 (3.5-5.1) mEq/L Chloride 108 H (98-107) mEq/L Carbon Dioxide 21.3 (21-32) mEq/L Anion Gap 15.6 H (5-15) MEQ/L BUN 11 (9-20) mg/dL Creatinine 1.18 (0.55-1.30) mg/dl Estimated GFR 49 ML/MIN Glucose 94 (70-110) MG/DL Hemoglobin A1c 5.6 (4.5-6.2) Calcium 8.3 L (8.5-10.1) mg/dL Total Bilirubin 0.60 (0.2-1.0) mg/dL AST 25 (15-37) U/L ALT 18 (12-78) U/L Alkaline Phosphatase 63 (46-116) U/L Serum Total Protein 5.6 L (6.4-8.2) gm/dL Albumin 2.8 L (3.4-5.0) g/dL Assessment/Plan (1) Diverticulitis Current Visit: Yes Status: Acute Assessment & Plan: On IV levaquin and flagyl, day #2. Improved, now just nauseated. Will advance diet to full liquids today. Code(s): K57.92 - DVTRCLI OF INTEST, PART UNSP, W/O PERF OR ABSCESS W/O BLEED (2) Failure of outpatient treatment Current Visit: Yes Status: Acute Code(s): Z78.9 - OTHER SPECIFIED HEALTH STATUS (3) Rash Current Visit: Yes Status: Acute Assessment & Plan: Could be vascular, or related somehow to viral infection. Will check ESR, mono spot, ASO titer. Code(s): R21 - RASH AND OTHER NONSPECIFIC SKIN ERUPTION (4) Leukopenia Current Visit: Yes Status: Acute Qualifiers: Leukopenia type: unspecified Qualified Code(s): D72.819 - Decreased white blood cell count, unspecified Assessment & Plan: Pt placed in reverse isolation for WBC 2.5 this morning. Could be secondary to her illness or could be related to medication side effect. Code(s): D72.819 - DECREASED WHITE BLOOD CELL COUNT, UNSPECIFIED
[2017-08-11] MEDS: ENOXAPARIN SODIUM SQ SCH (14:37)
[2017-08-11] MEDS: Sodium Chloride 0.9% 1000 ML 1,000 ML IV SCH (14:37)
[2017-08-11] MEDS: TYLENOL 325 MG PO PRN (20:15)
[2017-08-11] MEDS: ceLEXa 20 MG PO SCH (22:35)
[2017-08-11] MEDS: SYNTHROID 50 MCG PO SCH (22:35)
[2017-08-11] MEDS: Zestril 5 MG PO SCH (22:35)
[2017-08-11] MEDS: ZOCOR 20MG PO SCH (22:35)
[2017-08-11] MEDS: Imdur 30 MG PO SCH (22:35)
[2017-08-12] MEDS: TYLENOL 325 MG PO PRN ×2 (00:16→22:51)
[2017-08-12] MEDS: Sodium Chloride 0.9% 1000 ML 1,000 ML IV SCH ×2 (00:24→15:13)
[2017-08-12 05:47] LABS: Hematocrit 35.5 % (35-47); Hemoglobin 12.2 gm/dl (12.0-16.0); Mean Corpuscular Hgb Concent. 34.4 g/dl (32-36); Mean Platelet Volume 10.1 fl (6-9.5); Platelet Count 97 K/mm3 (150-450); Red Cell Distribution Width 12.5 % (11.5-14.0); White Blood Count 2.3 K/mm3 (4.0-10.5)
[2017-08-12] MEDS: FLAGYL 500 MG IVPB 500 MG/100 ML BAG IV SCH ×3 (05:57→18:05)
[2017-08-12 06:01] LABS: Mean Corpuscular Hemoglobin 31.2 pg (26-32)
[2017-08-12 06:10] LABS: ANION GAP 11.6 MEQ/L (5-15); BLOOD UREA NITROGEN 7 mg/dL (9-20); CHLORIDE 109 mEq/L (98-107); Calcium 7.8 mg/dL (8.5-10.1); Carbon Dioxide 23.9 mEq/L (21-32); Creatinine 1 0.94 mg/dl (0.55-1.30); Glucose 133 MG/DL (70-110); Potassium 3.9 mEq/L (3.5-5.1); SODIUM 141 mEq/L (136-145)
[2017-08-12] MEDS: Phenergan 25 MG INJ IV PRN ×3 (08:10→15:18)
[2017-08-12 08:41] LABS: BAND 26 % (0.0-2.0); Eosinophil 9 % (0.00-3.0); Lymphocytes 8 % (24-44); Monocyte 7 % (0.0-12.0); Neutrophils 50 % (36.0-66.0); Platelet Estimate DECREASED (NORMAL); Total Cells Counted 100
[2017-08-12] MEDS: ENOXAPARIN SODIUM SQ SCH (10:17)
[2017-08-12] MEDS: Levofloxacin 500MG/100ML D5W 500 MG/100 ML BAG IV SCH (10:17)
--- NOTE | 2017-08-12 13:12 | PCM.NOTE ---
Date and Time: 08/12/17 1308 Subjective Assessment: Having some nausea; the phenergan helps. Had a large episode of diarrhea in the bed last night and went on to have about 5 more episodes. None yet today. - Review of Systems Constitutional: Fever Abdominal/Gastrointestinal: Nausea, Diarrhea, No Abdominal Pain Objective Exam General Appearance: mild distress (nauseated), alert Neurologic Exam: oriented x 3, cooperative Skin Exam: normal color, warm, dry, rash (faded erythema on face. Persistent unchanged macules on lower body) Eye Exam: eyes nml inspection Respiratory Exam: normal breath sounds, lungs clear, No crackles/rales, No rhonchi, No wheezing Cardiovascular Exam: regular rate/rhythm, normal heart sounds, No murmur Gastrointestinal/Abdomen Exam: soft, other (hypoactive bowel sounds, but present ), No tenderness, No distention, No mass, No guarding, No rebound OBJECTIVE DATA Vital Signs: Vital Signs - 24 hr Temp Pulse Resp BP Pulse Ox 08/12/17 12:38 99.2 F 68 20 122/58 97 08/12/17 07:28 99.2 F 61 18 126/72 96 08/12/17 04:00 98.2 F 70 16 127/68 97 08/12/17 00:00 99 F 72 14 115/56 94 L 08/11/17 20:00 100.5 F 76 16 115/65 96 08/11/17 16:27 99.1 F 60 18 104/58 96 Pain Assessment - Last Documented Pain Intensity 0 Pain Scale Used 0-10 Pain Scale Intake and Output: Intake & Output 08/10/17 08/11/17 08/12/17 08/13/17 11:59 11:59 11:59 11:59 Intake Total 1027 3773 120 Output Total 1000 3650 Balance 27 123 120 Weight 50.4 kg Lab Results: Lab Results-Last 24 Hours 08/11/17 08/11/17 08/11/17 Range/Units 05:00 05:00 05:00 WBC (4.0-10.5) K/mm3 RBC (4.1-5.4) M/mm3 Hgb (12.0-16.0) gm/dl Hct (35-47) % MCV (78-100) fl MCH (26-32) pg MCHC (32-36) g/dl RDW (11.5-14.0) % Plt Count (150-450) K/mm3 MPV (6-9.5) fl Segmented Neutrophils (36.0-66.0) % Band Neutrophils (0.0-2.0) % Lymphocytes (Manual) (24-44) % Monocytes (Manual) (0.0-12.0) % Eosinophils (Manual) (0.00-3.0) % Nucleated RBCs % Differential Comment Platelet Estimate (NORMAL) ESR 4 (0-20) mm/hr Sodium (136-145) mEq/L Potassium (3.5-5.1) mEq/L Chloride (98-107) mEq/L Carbon Dioxide (21-32) mEq/L Anion Gap (5-15) MEQ/L BUN (9-20) mg/dL Creatinine (0.55-1.30) mg/dl Estimated GFR ML/MIN Glucose (70-110) MG/DL Hemoglobin A1c 5.6 (4.5-6.2) Calcium (8.5-10.1) mg/dL Monoscreen NEGATIVE (Negative) 08/12/17 08/12/17 Range/Units 05:23 05:23 WBC 2.3 L (4.0-10.5) K/mm3 RBC 3.90 L (4.1-5.4) M/mm3 Hgb 12.2 (12.0-16.0) gm/dl Hct 35.5 (35-47) % MCV 91.0 (78-100) fl MCH 31.2 (26-32) pg MCHC 34.4 (32-36) g/dl RDW 12.5 (11.5-14.0) % Plt Count 97 L (150-450) K/mm3 MPV 10.1 H (6-9.5) fl Segmented Neutrophils 50 (36.0-66.0) % Band Neutrophils 26 H (0.0-2.0) % Lymphocytes (Manual) 8 L (24-44) % Monocytes (Manual) 7 (0.0-12.0) % Eosinophils (Manual) 9 H (0.00-3.0) % Nucleated RBCs % Differential Comment NORMAL Platelet Estimate DECREASED (NORMAL) ESR (0-20) mm/hr Sodium 141 (136-145) mEq/L Potassium 3.9 (3.5-5.1) mEq/L Chloride 109 H (98-107) mEq/L Carbon Dioxide 23.9 (21-32) mEq/L Anion Gap 11.6 (5-15) MEQ/L BUN 7 L (9-20) mg/dL Creatinine 0.94 (0.55-1.30) mg/dl Estimated GFR > 60 ML/MIN Glucose 133 H (70-110) MG/DL Hemoglobin A1c (4.5-6.2) Calcium 7.8 L (8.5-10.1) mg/dL Monoscreen (Negative) Multi-Disciplinary Progress Notes: Multi-Disciplinary Progress Notes 08/12/17 07:51 Pharmacy Note by Femi Ann Patient has low platelets. Please review if Lovenox is needed. Initialized on 08/12/17 07:51 - END OF NOTE Assessment/Plan (1) Diverticulitis Current Visit: Yes Status: Acute Assessment & Plan: On IV levaquin and flagyl, day #2. Tolerating small bits of clear liquids. Anticipate she will feel better over the next couple of days. Decreased fever last night from on admission; Tmax 100.5. Code(s): K57.92 - DVTRCLI OF INTEST, PART UNSP, W/O PERF OR ABSCESS W/O BLEED (2) Failure of outpatient treatment Current Visit: Yes Status: Acute Code(s): Z78.9 - OTHER SPECIFIED HEALTH STATUS (3) Rash Current Visit: Yes Status: Acute Code(s): R21 - RASH AND OTHER NONSPECIFIC SKIN ERUPTION (4) Leukopenia Current Visit: Yes Status: Acute Qualifiers: Leukopenia type: unspecified Qualified Code(s): D72.819 - Decreased white blood cell count, unspecified Assessment & Plan: improved from yesterday. Recheck in a.m. Code(s): D72.819 - DECREASED WHITE BLOOD CELL COUNT, UNSPECIFIED
[2017-08-12] MEDS: Zestril 5 MG PO SCH (22:49)
[2017-08-12] MEDS: ceLEXa 20 MG PO SCH (22:51)
[2017-08-12] MEDS: Imdur 30 MG PO SCH (22:51)
[2017-08-12] MEDS: ZOCOR 20MG PO SCH (22:51)
[2017-08-12] MEDS: SYNTHROID 50 MCG PO SCH (22:51)
[2017-08-13] MEDS: FLAGYL 500 MG IVPB 500 MG/100 ML BAG IV SCH ×5 (00:18→23:31)
[2017-08-13] MEDS: Sodium Chloride 0.9% 1000 ML 1,000 ML IV SCH ×3 (02:52→23:39)
[2017-08-13] MEDS: TYLENOL 325 MG PO PRN (02:52)
[2017-08-13 06:35] LABS: BASOPHIL % 0.3 % (0.0-0.4); Basophil (Absolute #) 0.01 (0-0.4); Eosinophil % 3.9 % (0.00-5.0); Eosinophil (Absolute #) 0.12 (0-0.5); Granulocyte Absolute (ANC) 2.11 (1.4-6.9); Granulocytes % 69.3 % (36.0-66.0); Hematocrit 34.3 % (35-47); Lymphocyte (Absolute #) 0.41 (1.0-4.6); Lymphocytes % 13.4 % (24.0-44.0); Mean Cell Volume 90.5 fl (78-100); Mean Platelet Volume 10.2 fl (6-9.5); Monocytes % 13.1 % (0.0-12.0); Platelet Count 110 K/mm3 (150-450); Red Blood Count 3.79 M/mm3 (4.1-5.4); Red Cell Distribution Width 12.6 % (11.5-14.0); White Blood Count 3.1 K/mm3 (4.0-10.5)
[2017-08-13 06:47] LABS: ANION GAP 11.5 MEQ/L (5-15); BLOOD UREA NITROGEN 5 mg/dL (9-20); CHLORIDE 109 mEq/L (98-107); Calcium 7.4 mg/dL (8.5-10.1); Carbon Dioxide 24.1 mEq/L (21-32); Creatinine 1 0.97 mg/dl (0.55-1.30); Glucose 137 MG/DL (70-110); Potassium 3.4 mEq/L (3.5-5.1); SODIUM 141 mEq/L (136-145)
[2017-08-13 06:51] LABS: Mean Corpuscular Hemoglobin 31.6 pg (26-32)
[2017-08-13 07:17] LABS: Slide Review 1 YES
--- NOTE | 2017-08-13 08:10 | PCM.DS ---
Discharge Summary Date of Admission: 08/10/17 17:55 Admitting Physician: TONO GARCIAS Primary Care Provider: TONO GARCIAS Allergies Allergies cefaclor [From Ceclor] Allergy (Verified 08/10/17 14:28) cephalexin monohydrate [From Keflex] Allergy (Verified 08/10/17 14:28) erythromycin base [Erythromycin Base] Allergy (Verified 08/10/17 14:28) erythromycin estolate [From Ilosone] Allergy (Verified 08/10/17 14:28) iron Allergy (Verified 08/10/17 14:28) latex Allergy (Verified 08/10/17 14:28) oxytetracycline [From Terramycin] Allergy (Verified 08/10/17 14:28) oxytetracycline HCl [From Terramycin] Allergy (Verified 08/10/17 14:28) Penicillins Allergy (Verified 08/10/17 14:28) Sulfa (Sulfonamide Antibiotics) Allergy (Verified 08/10/17 14:28) Hospital Summary - Hospital Course Hospital Course: Pt admitted through ER with vomiting and diarrhea, she had been dx with diverticulitis earlier that day but was unable to tolerate the antibiotics. She was leukopenic through her stay here and was on reverse isolation most of the time. Her predominant symptom has been nausea, followed by diarrhea. Yesterday she had quite a bit of diarrhea. Today she is feeling good, nausea is less and she is hungry for the first time in days. Still having diarrhea ( had one large BM this morning). Her leukopenia is accompanies by thrombocytopenia (although both are improved today). On differential she has had significant bands, up to 28 (rechecking today). Plan is to recheck blood count later in the week and refer to hematology as needed. - Vitals & Intake/Output Vital Signs: Vital Signs Temperature 98.9 F 08/13/17 07:36 Pulse Rate 70 08/13/17 07:36 Respiratory Rate 18 08/13/17 07:36 Blood Pressure 114/68 08/13/17 07:36 O2 Sat by Pulse Oximetry 96 08/13/17 07:36 Intake & Output: Intake & Output 08/10/17 08/11/17 08/12/17 08/13/17 11:59 11:59 11:59 11:59 Intake Total 1027 3773 2324 Output Total 1000 3650 1850 Balance 27 123 474 Weight 50.4 kg - Lab Result Diagrams: 08/13/17 05:30 08/13/17 05:30 Lab Results-Last 24 Hrs: Lab Results-Last 24 Hours 08/11/17 08/12/17 08/13/17 Range/Units 05:00 05:23 05:30 WBC 3.1 L (4.0-10.5) K/mm3 RBC 3.79 L (4.1-5.4) M/mm3 Hgb 12.0 (12.0-16.0) gm/dl Hct 34.3 L (35-47) % MCV 90.5 (78-100) fl MCH 31.6 (26-32) pg MCHC 35.0 (32-36) g/dl RDW 12.6 (11.5-14.0) % Plt Count 110 L (150-450) K/mm3 MPV 10.2 H (6-9.5) fl Gran % 69.3 H (36.0-66.0) % Lymphocytes % 13.4 L (24.0-44.0) % Monocytes % 13.1 H (0.0-12.0) % Eosinophils % 3.9 (0.00-5.0) % Basophils % 0.3 (0.0-0.4) % Segmented Neutrophils 50 (36.0-66.0) % Band Neutrophils 26 H (0.0-2.0) % Lymphocytes (Manual) 8 L (24-44) % Monocytes (Manual) 7 (0.0-12.0) % Eosinophils (Manual) 9 H (0.00-3.0) % Basophils # 0.01 (0-0.4) Nucleated RBCs % Differential Comment NORMAL Platelet Estimate DECREASED (NORMAL) Sodium (136-145) mEq/L Potassium (3.5-5.1) mEq/L Chloride (98-107) mEq/L Carbon Dioxide (21-32) mEq/L Anion Gap (5-15) MEQ/L BUN (9-20) mg/dL Creatinine (0.55-1.30) mg/dl Estimated GFR ML/MIN Glucose (70-110) MG/DL Calcium (8.5-10.1) mg/dL Anti-Streptolysin Titr 95 (0-408) IU/mL Slides for Path Review YES 08/13/17 Range/Units 05:30 WBC (4.0-10.5) K/mm3 RBC (4.1-5.4) M/mm3 Hgb (12.0-16.0) gm/dl Hct (35-47) % MCV (78-100) fl MCH (26-32) pg MCHC (32-36) g/dl RDW (11.5-14.0) % Plt Count (150-450) K/mm3 MPV (6-9.5) fl Gran % (36.0-66.0) % Lymphocytes % (24.0-44.0) % Monocytes % (0.0-12.0) % Eosinophils % (0.00-5.0) % Basophils % (0.0-0.4) % Segmented Neutrophils (36.0-66.0) % Band Neutrophils (0.0-2.0) % Lymphocytes (Manual) (24-44) % Monocytes (Manual) (0.0-12.0) % Eosinophils (Manual) (0.00-3.0) % Basophils # (0-0.4) Nucleated RBCs % Differential Comment Platelet Estimate (NORMAL) Sodium 141 (136-145) mEq/L Potassium 3.4 L (3.5-5.1) mEq/L Chloride 109 H (98-107) mEq/L Carbon Dioxide 24.1 (21-32) mEq/L Anion Gap 11.5 (5-15) MEQ/L BUN 5 L (9-20) mg/dL Creatinine 0.97 (0.55-1.30) mg/dl Estimated GFR > 60 ML/MIN Glucose 137 H (70-110) MG/DL Calcium 7.4 L (8.5-10.1) mg/dL Anti-Streptolysin Titr (0-408) IU/mL Slides for Path Review Discharge Exam General Appearance: no apparent distress, alert Neurologic Exam: oriented x 3, cooperative Skin Exam: normal color, warm, dry, rash (scattered tiny macular erythema on face) Eye Exam: eyes nml inspection Neck Exam: normal inspection Respiratory Exam: normal breath sounds, lungs clear, No crackles/rales, No rhonchi, No wheezing Cardiovascular Exam: regular rate/rhythm, normal heart sounds, No murmur Extremity Exam: normal inspection, No pedal edema, No swelling Back Exam: normal inspection, rash (scattered macular erythematous lesions on upper back) Final Diagnosis/Problem List - Final Discharge Diagnosis/Problem (1) Diverticulitis Current Visit: Yes Status: Acute Assessment & Plan: Improved, likely home today if tolerating po well. (2) Failure of outpatient treatment Current Visit: Yes Status: Acute (3) Rash Current Visit: Yes Status: Acute Assessment & Plan: seems improved, I'm unsure the etiology. (4) Leukopenia Current Visit: Yes Status: Acute Assessment & Plan: improved today. Recheck later this week. Out of reverse isolation today. (5) Thrombocytopenia Current Visit: Yes Status: Acute Assessment & Plan: Improved this morning. To re-draw later this week outpatient. If persistent derangements in CBC and differential, will refer to hematology. (6) Bandemia Current Visit: Yes Status: Acute Assessment & Plan: have been as high as 28, although the WBC count is low and pt is improving. Pending this morning. - Discharge Disposition: Home, Self-Care Condition: Good Prescriptions: New Metronidazole 500 mg [Flagyl 500 MG] 500 mg PO QID #28 tablet Levofloxacin [Levaquin] 500 mg PO DAILY #7 tablet Continue Levothyroxine Sodium 50 Mcg [Synthroid 50 Mcg] 50 mcg PO DAILY Citalopram Hydrobromide 20 mg* [ceLEXa 20 MG] 20 mg PO DAILY Atorvastatin Calcium [Lipitor] 20 mg PO DAILY Isosorbide Mononitrate [Isosorbide Mononitrate ER] 30 mg DAILY Lisinopril [Zestril] 2.5 mg PO DAILY Follow up with: TONO GARCIAS [Primary Care Provider] - 1 Week
[2017-08-13 08:12] LABS: ABSOLUTE NEUTROPHILS 2.2 (1.4-6.9); BAND 14 % (0.0-2.0); Eosinophil 3 % (0.00-3.0); Lymphocytes 21 % (24-44); Monocyte 3 % (0.0-12.0); Neutrophils 59 % (36.0-66.0); Total Cells Counted 100
[2017-08-13] MEDS: ENOXAPARIN SODIUM SQ SCH (09:24)
[2017-08-13] MEDS: Levofloxacin 500MG/100ML D5W 500 MG/100 ML BAG IV SCH (09:26)
[2017-08-13] MEDS: Phenergan 25 MG INJ IV PRN ×3 (11:50→21:17)
[2017-08-13 14:22] LABS: 027 TOX PROD PRESUMPTIVE NEGATIVE (NEGATIVE); TOXIGENIC C. DIFF ORG NEGATIVE (NEGATIVE)
[2017-08-13] MEDS: Zestril 5 MG PO SCH ×2 (20:57→23:39)
[2017-08-13] MEDS: ceLEXa 20 MG PO SCH ×2 (20:57→22:50)
[2017-08-13] MEDS: Imdur 30 MG PO SCH ×2 (20:57→22:50)
[2017-08-13] MEDS: SYNTHROID 50 MCG PO SCH ×2 (20:57→23:38)
[2017-08-13] MEDS: ZOCOR 20MG PO SCH ×2 (20:59→23:39)
[2017-08-14] MEDS: Phenergan 25 MG INJ IV PRN ×5 (01:32→18:02)
[2017-08-14] MEDS: FLAGYL 500 MG IVPB 500 MG/100 ML BAG IV SCH ×3 (06:29→17:35)
--- NOTE | 2017-08-14 08:54 | PCM.NOTE ---
Date and Time: 08/14/17 0851 Subjective Assessment: Pt started feeling nauseated yesterday and did not take in much po. Vomited through the night. Denies abd pain. Objective Exam General Appearance: no apparent distress, alert Neurologic Exam: oriented x 3, cooperative Skin Exam: normal color, warm, dry, rash (face with scattered tiny erythematous macules) Respiratory Exam: normal breath sounds, lungs clear, No crackles/rales, No rhonchi, No wheezing Cardiovascular Exam: regular rate/rhythm, normal heart sounds, No murmur Gastrointestinal/Abdomen Exam: soft, normal bowel sounds, No tenderness, No distention, No mass, No guarding Extremity Exam: normal inspection, No pedal edema, No swelling OBJECTIVE DATA Vital Signs: Vital Signs - 24 hr Temp Pulse Resp BP Pulse Ox 08/14/17 07:58 98.4 F 62 18 131/59 95 08/14/17 04:00 99.3 F 64 20 139/68 93 L 08/14/17 00:00 98.7 F 68 18 123/60 96 08/13/17 20:00 98.2 F 69 18 128/60 96 08/13/17 16:00 98.6 F 70 16 118/59 95 08/13/17 12:51 98.7 F 68 20 110/55 97 Pain Assessment - Last Documented Pain Intensity 0 Pain Scale Used 0-10 Pain Scale Intake and Output: Intake & Output 08/11/17 08/12/17 08/13/17 08/14/17 11:59 11:59 11:59 11:59 Intake Total 1027 3773 2324 2368 Output Total 1000 3650 1850 2155 Balance 27 123 474 213 Weight 50.4 kg Lab Results: Lab Results-Last 24 Hours 08/13/17 Range/Units 12:50 Stl C. diff Tox B Gene NEGATIVE (NEGATIVE) C.difficile [id number] PRESUMPTIVE NEGATIVE (NEGATIVE) Assessment/Plan (1) Diverticulitis Current Visit: Yes Status: Acute Assessment & Plan: Will continue the IV antibiotics. Will add protonix IV today for nausea. Code(s): K57.92 - DVTRCLI OF INTEST, PART UNSP, W/O PERF OR ABSCESS W/O BLEED (2) Failure of outpatient treatment Current Visit: Yes Status: Acute Code(s): Z78.9 - OTHER SPECIFIED HEALTH STATUS (3) Rash Current Visit: Yes Status: Acute Assessment & Plan: Appears to be healing. pt is not complaining of sx from the rash. Code(s): R21 - RASH AND OTHER NONSPECIFIC SKIN ERUPTION (4) Leukopenia Current Visit: Yes Status: Acute Qualifiers: Leukopenia type: unspecified Qualified Code(s): D72.819 - Decreased white blood cell count, unspecified Assessment & Plan: recheck. Code(s): D72.819 - DECREASED WHITE BLOOD CELL COUNT, UNSPECIFIED (5) Thrombocytopenia Current Visit: Yes Status: Acute (6) Bandemia Current Visit: Yes Status: Acute Assessment & Plan: Improved yesterday, from 28 as a high down to 14 yesterday. Code(s): D72.825 - B[place]DEM[place]
[2017-08-14 09:35] LABS: Granulocyte Absolute (ANC) 2.08 (1.4-6.9); Hematocrit 36.5 % (35-47); Mean Cell Volume 89.2 fl (78-100); Mean Corpuscular Hgb Concent. 35.6 g/dl (32-36); Mean Platelet Volume 9.7 fl (6-9.5); Platelet Count 132 K/mm3 (150-450); Red Blood Count 4.09 M/mm3 (4.1-5.4); Red Cell Distribution Width 12.7 % (11.5-14.0); White Blood Count 3.5 K/mm3 (4.0-10.5)
[2017-08-14] MEDS: Levofloxacin 500MG/100ML D5W 500 MG/100 ML BAG IV SCH (10:05)
[2017-08-14] MEDS: ENOXAPARIN SODIUM SQ SCH (10:05)
[2017-08-14 10:10] LABS: Mean Corpuscular Hemoglobin 31.7 pg (26-32)
[2017-08-14] MEDS: MORPHINE SULFATE 2 MG INJ IV PRN ×3 (10:18→18:02)
[2017-08-14] MEDS ORDERED: PROTONIX 40 MG IV IV SCH (13:45)
[2017-08-14 16:48] LABS: BAND 2 % (0.0-2.0); Eosinophil 1 % (0.00-3.0); Lymphocytes 22 % (24-44); Monocyte 15 % (0.0-12.0); Neutrophils 60 % (36.0-66.0); Total Cells Counted 100
[2017-08-14 16:49] LABS: Platelet Estimate NORMAL (NORMAL)
[2017-08-14] MEDS: ceLEXa 20 MG PO SCH (21:04)
[2017-08-14] MEDS: Imdur 30 MG PO SCH (21:04)
[2017-08-14] MEDS: ZOCOR 20MG PO SCH (21:04)
[2017-08-14] MEDS: SYNTHROID 50 MCG PO SCH (21:04)
[2017-08-14] MEDS: Zestril 5 MG PO SCH (21:05)
[2017-08-15] MEDS: Sodium Chloride 0.9% 1000 ML 1,000 ML IV SCH (00:17)
[2017-08-15] MEDS: FLAGYL 500 MG IVPB 500 MG/100 ML BAG IV SCH ×2 (00:18→06:29)
[2017-08-15 07:24] VITALS: BP 127/60; PULSE 64; O2SAT 95
--- NOTE | 2017-08-15 09:19 | PCM.DS ---
Discharge Summary Date of Admission: 08/10/17 17:55 Admitting Physician: TONO GARCIAS Primary Care Provider: TONO GARCIAS Allergies Allergies cefaclor [From Ceclor] Allergy (Verified 08/10/17 14:28) cephalexin monohydrate [From Keflex] Allergy (Verified 08/10/17 14:28) erythromycin base [Erythromycin Base] Allergy (Verified 08/10/17 14:28) erythromycin estolate [From Ilosone] Allergy (Verified 08/10/17 14:28) iron Allergy (Verified 08/10/17 14:28) latex Allergy (Verified 08/10/17 14:28) oxytetracycline [From Terramycin] Allergy (Verified 08/10/17 14:28) oxytetracycline HCl [From Terramycin] Allergy (Verified 08/10/17 14:28) Penicillins Allergy (Verified 08/10/17 14:28) Sulfa (Sulfonamide Antibiotics) Allergy (Verified 08/10/17 14:28) Hospital Summary - Hospital Course Hospital Course: Pt admitted through ER with diarrhea and vomiting, had failed outpatient tx for diverticulitis. On IV levaquin and flagyl. Kept having nausea and not eating well. Last night she ate and no nausea this morning. Pt had a nonblanching macular tiny erytehmatous rash during her stay, not symptomatic. Her WBC were down to 2.0 during her stay and she was briefly on reverse isolation. She also had low platelets and bands of up to 28. She did have decreased bands to 2 at the end of her stay and her platelets increased to 132 by the time of discharged. On manual differential, she was noted to have Pseudopelger Huet cells concerning for myelodysplastic syndrome so she will see Dr. Rivas outpatient. - Vitals & Intake/Output Vital Signs: Vital Signs Temperature 98.5 F 08/15/17 07:24 Pulse Rate 64 08/15/17 07:24 Respiratory Rate 16 08/15/17 07:24 Blood Pressure 127/60 08/15/17 07:24 O2 Sat by Pulse Oximetry 95 08/15/17 07:24 Intake & Output: Intake & Output 08/12/17 08/13/17 08/14/17 08/15/17 11:59 11:59 11:59 11:59 Intake Total 3773 2324 2368 2386 Output Total 3652 8130 2155 800 Balance 123 535 700 4724 Weight 50.4 kg - Lab Result Diagrams: 08/14/17 09:20 08/13/17 05:30 Lab Results-Last 24 Hrs: Lab Results-Last 24 Hours 08/12/17 08/14/17 Range/Units 05:23 09:20 WBC 2.3 L 3.5 L (4.0-10.5) K/mm3 RBC 3.90 L 4.09 L (4.1-5.4) M/mm3 Hgb 12.2 13.0 (12.0-16.0) gm/dl Hct 35.5 36.5 (35-47) % MCV 91.0 89.2 (78-100) fl MCH 31.2 31.7 (26-32) pg MCHC 34.4 35.6 (32-36) g/dl RDW 12.5 12.7 (11.5-14.0) % Plt Count 97 L 132 L (150-450) K/mm3 MPV 10.1 H 9.7 H (6-9.5) fl Segmented Neutrophils 50 60 (36.0-66.0) % Band Neutrophils 26 H 2 (0.0-2.0) % Lymphocytes (Manual) 8 L 22 L (24-44) % Monocytes (Manual) 7 15 H (0.0-12.0) % Eosinophils (Manual) 9 H 1 (0.00-3.0) % Nucleated RBCs % Differential Comment NORMAL NORMAL Platelet Estimate DECREASED NORMAL (NORMAL) Smear Path Review Micro Results-Entire Visit: Microbiology 08/11/17 05:20 Blood Culture - Preliminary Blood NO GROWTH TO DATE Discharge Exam General Appearance: no apparent distress, alert Neurologic Exam: oriented x 3, cooperative Skin Exam: normal color, warm, dry, rash (tiny areas of macular erythema on face ) Ears, Nose, Throat Exam: moist mucous membranes Respiratory Exam: normal breath sounds, lungs clear, No crackles/rales, No rhonchi, No wheezing Cardiovascular Exam: regular rate/rhythm, normal heart sounds, No murmur Gastrointestinal/Abdomen Exam: soft, normal bowel sounds, No tenderness, No distention, No mass, No guarding, No rebound Final Diagnosis/Problem List - Final Discharge Diagnosis/Problem (1) Diverticulitis Current Visit: Yes Status: Acute Assessment & Plan: Much improved. Home on po antibiotics, levaquin and flagyl. (2) Failure of outpatient treatment Current Visit: Yes Status: Acute (3) Rash Current Visit: Yes Status: Acute (4) Leukopenia Current Visit: Yes Status: Acute (5) Thrombocytopenia Current Visit: Yes Status: Acute Assessment & Plan: improved; thought initially may be related to meds but improved while on the levaquin. Worry for myelodysplastic syndrome as noted; following up with hematology. (6) Bandemia Current Visit: Yes Status: Resolved - Discharge Disposition: Home, Self-Care Condition: Good Prescriptions: New Metronidazole 500 mg [Flagyl 500 MG] 500 mg PO QID #28 tablet Levofloxacin [Levaquin] 500 mg PO DAILY #7 tablet Omeprazole 20 MG [Prilosec 20 mg] 20 mg PO DAILY #14 capsule.dr Hooper Levothyroxine Sodium 50 Mcg [Synthroid 50 Mcg] 50 mcg PO DAILY Citalopram Hydrobromide 20 mg* [ceLEXa 20 MG] 20 mg PO DAILY Atorvastatin Calcium [Lipitor] 20 mg PO DAILY Isosorbide Mononitrate [Isosorbide Mononitrate ER] 30 mg DAILY Lisinopril [Zestril] 2.5 mg PO DAILY Follow up with: TONO GARCIAS [Primary Care Provider] - 08/20/17 10:15 am
== END 2017-08-15 10:40 | disposition home or self-care (01) | DRG 392 ==
LOC: ED 14:12 → MED SURG 17:55
PROVIDERS: ADMIT Family Medicine; ATTEND Family Medicine
DX: K57.92 Diverticulitis of intestine, part unspecified, without perforation or abscess without bleeding (principal); Z78.9 Other specified health status; R21 Rash and other nonspecific skin eruption; D72.819 Decreased white blood cell count, unspecified; D69.6 Thrombocytopenia, unspecified; D72.825 Bandemia
CPT/HCPCS: 36000; 36415; 80048; 80053; 82962; 83036; 85025; 85652; 86060; 86308; 87040; 87493; 96360; 96361; 96365; 96366; 96374; 99285; J1650; J1956; J2270; J2405; J2550; A9270-GY

== ENCOUNTER 2017-08-20 15:27 | Observation (INO) | payer OTHER ==
[2017-08-20 16:33] LABS: ANION GAP 13.6 MEQ/L (5-15); BLOOD UREA NITROGEN 9 mg/dL (7-17); CHLORIDE 104 mmol/L (98-107); Calcium 8.7 mg/dL (8.4-10.2); Carbon Dioxide 27 mmol/L (22-30); Creatinine 1 0.66 mg/dL (0.52-1.04); Glucose 201 mg/dL (74-106); SODIUM 142 mmol/L (137-145)
[2017-08-20 16:41] LABS: Potassium 2.8 mmol/L (3.5-5.1)
[2017-08-20] MEDS ORDERED: Sodium Chloride 0.9% 1000 ML 1,000 ML IV SCH (17:00)
[2017-08-20] MEDS: POTASSIUM CHLORIDE 20 mEq IN WATER 100ML 20 MEQ/100 ML BAG IV SCH ×2 (17:19→20:57)
[2017-08-20] MEDS: Imdur 30 MG PO SCH (17:36)
[2017-08-20] MEDS: SYNTHROID 50 MCG PO SCH (17:36)
[2017-08-20] MEDS: ZOCOR 20MG PO SCH (17:36)
[2017-08-20] MEDS: Zestril 5 MG PO SCH (17:37)
[2017-08-20] MEDS: ceLEXa 20 MG PO SCH (17:37)
[2017-08-20] MEDS: Protonix 40MG Tablet PO SCH (17:37)
[2017-08-21 05:42] VITALS: O2SAT 95
[2017-08-21 06:10] LABS: ANION GAP 9.8 MEQ/L (5-15); BLOOD UREA NITROGEN 8 mg/dL (7-17); CHLORIDE 107 mmol/L (98-107); Calcium 8.3 mg/dL (8.4-10.2); Carbon Dioxide 27 mmol/L (22-30); Creatinine 1 0.63 mg/dL (0.52-1.04); Glucose 112 mg/dL (74-106); Potassium 3.4 mmol/L (3.5-5.1); SODIUM 140 mmol/L (137-145)
[2017-08-21 07:10] VITALS: BP 136/91; PULSE 65
--- NOTE | 2017-08-21 08:37 | PCM.DS ---
Discharge Summary Date of Admission: 08/20/17 15:27 Admitting Physician: TONO GARCIAS Primary Care Provider: TONO GARCIAS Allergies Allergies cefaclor [From Ceclor] Allergy (Verified 08/10/17 14:28) cephalexin monohydrate [From Keflex] Allergy (Verified 08/10/17 14:28) erythromycin base [Erythromycin Base] Allergy (Verified 08/10/17 14:28) erythromycin estolate [From Ilosone] Allergy (Verified 08/10/17 14:28) iron Allergy (Verified 08/10/17 14:28) latex Allergy (Verified 08/10/17 14:28) oxytetracycline [From Terramycin] Allergy (Verified 08/10/17 14:28) oxytetracycline HCl [From Terramycin] Allergy (Verified 08/10/17 14:28) Penicillins Allergy (Verified 08/10/17 14:28) Sulfa (Sulfonamide Antibiotics) Allergy (Verified 08/10/17 14:28) Hospital Summary - Hospital Course Hospital Course: Pt seen in office yesterday and c/o fatigue; found to have K+ of 2.7 so admitted to Med Surg for IV repletion. Her post potassium was 4.8. This morning it is 3.4. She feels much better. She will start on K-dur 20mEq po BID and will recheck in 2 d. - Vitals & Intake/Output Vital Signs: Vital Signs Temperature 98.1 F 08/21/17 07:09 Pulse Rate 65 08/21/17 07:09 Respiratory Rate 16 08/21/17 07:09 Blood Pressure 136/91 08/21/17 07:09 O2 Sat by Pulse Oximetry 95 08/21/17 07:09 Intake & Output: Intake & Output 08/18/17 08/19/17 08/20/17 08/21/17 10:59 11:59 11:59 11:59 Intake Total 906 Output Total 775 Balance 131 Weight 52.5 kg - Lab Result Diagrams: 08/21/17 05:35 Lab Results-Last 24 Hrs: Lab Results-Last 24 Hours 08/20/17 08/20/17 08/21/17 Range/Units 16:00 16:00 02:30 Sodium 142 (137-145) mmol/L Potassium 2.8 L 3.8 (3.5-5.1) mmol/L Chloride 104 (98-107) mmol/L Carbon Dioxide 27 (22-30) mmol/L Anion Gap 13.6 (5-15) MEQ/L BUN 9 (7-17) mg/dL Creatinine 0.66 (0.52-1.04) mg/dL Estimated GFR > 60 ML/MIN Glucose 201 H (74-106) mg/dL Calcium 8.7 (8.4-10.2) mg/dL Magnesium 1.9 (1.6-2.3) mg/dL 08/21/17 Range/Units 05:35 Sodium 140 (137-145) mmol/L Potassium 3.4 L (3.5-5.1) mmol/L Chloride 107 (98-107) mmol/L Carbon Dioxide 27 (22-30) mmol/L Anion Gap 9.8 (5-15) MEQ/L BUN 8 (7-17) mg/dL Creatinine 0.63 (0.52-1.04) mg/dL Estimated GFR > 60 ML/MIN Glucose 112 H (74-106) mg/dL Calcium 8.3 L (8.4-10.2) mg/dL Magnesium (1.6-2.3) mg/dL Discharge Exam General Appearance: no apparent distress, alert Neurologic Exam: oriented x 3, cooperative Skin Exam: normal color, warm, dry, No rash Respiratory Exam: normal breath sounds, lungs clear, No crackles/rales, No rhonchi, No wheezing Cardiovascular Exam: regular rate/rhythm, normal heart sounds, No murmur Gastrointestinal/Abdomen Exam: soft, normal bowel sounds Extremity Exam: normal inspection, No pedal edema, No swelling Final Diagnosis/Problem List - Final Discharge Diagnosis/Problem (1) Hypokalemia Current Visit: Yes Status: Acute Assessment & Plan: With recent diverticulitis - so could be related to recent illness. Start on po K+, check in 2d and monitor closely for the next month or so. If persistent would consider nephrology referral. (2) Leukopenia Current Visit: No Status: Resolved Assessment & Plan: on last visit - she is to be following up with Hematology outpatient. - Discharge Disposition: Home, Self-Care Condition: Good Prescriptions: New Potassium Chloride 10 Meq Tab* [Klor Con 10 MEQ] 20 meq PO BID #60 tab Continue Levothyroxine Sodium 50 Mcg [Synthroid 50 Mcg] 50 mcg PO DAILY Citalopram Hydrobromide 20 mg* [ceLEXa 20 MG] 20 mg PO DAILY Atorvastatin Calcium [Lipitor] 20 mg PO DAILY Isosorbide Mononitrate [Isosorbide Mononitrate ER] 30 mg DAILY Lisinopril [Zestril] 2.5 mg PO DAILY Omeprazole 20 MG [Prilosec 20 mg] 20 mg PO DAILY #14 capsule.dr Follow up with: TONO GARCIAS [Primary Care Provider] - 1 Week
[2017-08-21] MEDS ORDERED: NON-FORMULARY ITEM (Lisinopril [Zestril] 2.5 MG) PO SCH (10:00)
[2017-08-21] MEDS ORDERED: NON-FORMULARY ITEM (Atorvastatin Calcium [Lipitor] 20 MG) PO SCH (10:00)
[2017-08-21] MEDS ORDERED: Klor Con 10 MEQ PO SCH (10:00)
[2017-08-21] MEDS ORDERED: NON-FORMULARY ITEM (Omeprazole 20 Mg [Prilosec 20 Mg] 20 MG) PO SCH (10:00)
[2017-08-21] MEDS: Zestril 5 MG PO SCH (10:11)
[2017-08-21] MEDS: Imdur 30 MG PO SCH (10:11)
[2017-08-21] MEDS: SYNTHROID 50 MCG PO SCH (10:11)
[2017-08-21] MEDS: ZOCOR 20MG PO SCH (10:11)
[2017-08-21] MEDS: Protonix 40MG Tablet PO SCH (10:11)
[2017-08-21] MEDS: ceLEXa 20 MG PO SCH (10:11)
== END 2017-08-21 11:00 | disposition home or self-care (01) ==
LOC: MED SURG 15:27
PROVIDERS: ADMIT Family Medicine; ATTEND Family Medicine
DX: E87.6 Hypokalemia (principal); D72.819 Decreased white blood cell count, unspecified; K57.92 Diverticulitis of intestine, part unspecified, without perforation or abscess without bleeding; D69.6 Thrombocytopenia, unspecified
CPT/HCPCS: 36415; 80048; 80053; 81000; 83735; 84132; 85025; 93268; G0378; J3480; A9270-GY

== ENCOUNTER 2018-02-23 17:49 | Emergency (ER) | payer OTHER | END 2018-02-23 20:02 | disposition home or self-care (01) | LOC: ED 17:49 | PROC: 0HQFXZZ Repair Right Hand Skin, External Approach (ICD-10-PCS; principal; 2018-02-23) | DX: S61.216A Laceration without foreign body of right little finger without damage to nail, initial encounter (principal); W26.0XXA Contact with knife, initial encounter; Y93.G3 Activity, cooking and baking; Y92.000 Kitchen of unspecified non-institutional (private) residence as the place of occurrence of the external cause | CPT/HCPCS: 12001; 99282 ==

== ENCOUNTER 2018-12-06 06:09 | Day surgery (SDC) | payer OTHER ==
[2018-12-06] MEDS ORDERED: Lactated Ringers 1,000 ML IV SCH (07:00)
[2018-12-06] MEDS ORDERED: DIPRIVAN 200 MG/20 ML IV ONE (07:34)
--- NOTE | 2018-12-06 08:41 | OP ---
SURGERY DATE/TIME: 12/06/2018 0800 PREOPERATIVE DIAGNOSIS: Positive Cologuard. POSTOPERATIVE DIAGNOSIS: Normal colon. PROCEDURE: Colonoscopy. SURGEON: Dr. Tuttle. ANESTHESIA: MAC. Medications given by anesthesia department. HISTORY: The patient is a 63 year-old white female who has never had a colonoscopy previously. She did have a positive Cologuard. She was appraised of the risks of the procedure of colonoscopy including the risk of perforation, phlebitis, untoward reaction to medication, bleeding and missed lesions. The patient verbalized her understanding and desired to have the procedure performed. DESCRIPTION OF PROCEDURE: The patient was given the medications by the anesthesia department. She had continuous pulse oximetry, ECG monitoring, intermittent blood pressure monitoring and tidal CO2 monitoring during the examination. She was placed in the left lateral decubitus position. A digital rectal examination was performed and revealed external hemorrhoids but otherwise no masses were felt. The flexible Olympus pediatric colonoscope was used to intubate the rectum. A view of the colon was developed sequentially to the cecum. There was noted a relative narrow sigmoid colon but no mucosal lesions were encountered. The scope was removed from the patient who tolerated the procedure well and was sent back to OP recovery in good condition. The prep was noted to be fair to good.
[2018-12-06 09:22] VITALS: BP 142/66; PULSE 65; O2SAT 97
== END 2018-12-06 09:30 | disposition home or self-care (01) ==
LOC: SDC 06:09
PROVIDERS: ATTEND Family Medicine
DX: Z12.11 Encounter for screening for malignant neoplasm of colon (principal)
CPT/HCPCS: J2704

== ENCOUNTER 2023-09-30 19:37 | Emergency (ER) | payer MEDICARE ==
--- NOTE | 2023-09-30 19:48 | ERPHSYRPT ---
- History of Present Illness Time Seen by Provider: 09/30/23 19:48 Source: patient, family Exam Limitations: no limitations Physician History: This is a 67-year-old white female patient Dr. Wild who presents with left shoulder pain after lifting and moving a microwave yesterday. Patient denies chest pain. Patient denies shortness of breath. The pain began at 1330 today and worsened throughout the day. She has the ability to move the left shoulder fully. However it hurts to do so. Patient has a history of hypertension, hyperlipidemia, gastroesophageal reflux disease, hypothyroidism and diabetes. Patient drove herself into the emergency department Occurred: yesterday Quality: constant, aching Severity of Pain-Max: moderate Severity of Pain-Current: moderate Extremities Pain Location: shoulder: left Modifying Factors: Improves With: movement Associated Symptoms: none Allergies/Adverse Reactions: povidone-iodine [From Betadine] Allergy (Severe, Verified 09/30/23 19:58) Rash soap [From Betadine] Allergy (Severe, Verified 09/30/23 19:58) Rash cefaclor [From Ceclor] Allergy (Verified 09/30/23 19:58) cephalexin monohydrate [From Keflex] Allergy (Verified 09/30/23 19:58) erythromycin base [Erythromycin Base] Allergy (Verified 09/30/23 19:58) erythromycin estolate [From Ilosone] Allergy (Verified 09/30/23 19:58) iron Allergy (Verified 09/30/23 19:58) latex Allergy (Verified 09/30/23 19:58) oxytetracycline [From Terramycin] Allergy (Verified 09/30/23 19:58) oxytetracycline HCl [From Terramycin] Allergy (Verified 09/30/23 19:58) Penicillins Allergy (Verified 09/30/23 19:58) Sulfa (Sulfonamide Antibiotics) Allergy (Verified 09/30/23 19:58) Home Medications: Levothyroxine Sodium 50 Mcg [Synthroid 50 Mcg] 50 mcg PO DAILY 12/16/12 [History] Atorvastatin Calcium [Lipitor] 20 mg PO DAILY 08/09/17 [History] Citalopram Hydrobromide 20 mg* [ceLEXa 20 MG] 20 mg PO DAILY 08/09/17 [History] Isosorbide Mononitrate [Isosorbide Mononitrate ER] 30 mg PO DAILY 08/09/17 [History] lisinopriL [Zestril] 2.5 mg PO DAILY 08/09/17 [History] Metformin HCl 500 mg [Glucophage 500 MG] 500 mg PO DAILY 09/30/23 [History] Hx Tetanus, Diphtheria Vaccination/Date Given: No Hx Influenza Vaccination/Date Given: Yes Hx Pneumococcal Vaccination/Date Given: No Travel Risk - International Travel Have you traveled outside of the country in past 3 weeks: No - Emerging Infectious Disease Are you exhibiting symptoms associated with any current EIDs: No - Review of Systems Constitutional: No Symptoms Eyes: No Symptoms Ears, Nose, & Throat: No Symptoms Respiratory: No Symptoms Cardiac: No Symptoms Abdominal/Gastrointestinal: No Symptoms Genitourinary Symptoms: No Symptoms Musculoskeletal: Joint Pain (Left shoulder) Skin: No Symptoms Neurological: No Symptoms Psychological: No Symptoms Endocrine: No Symptoms Hematologic/Lymphatic: No Symptoms Immunological/Allergic: No Symptoms All Other Systems: Reviewed and Negative - Past Medical History Pertinent Past Medical History: Yes Neurological History: Migraines ENT History: No Pertinent History Cardiac History: Hypertension Respiratory History: No Pertinent History Endocrine Medical History: Hypothyroidism Musculoskeletal History: Arthritis, Osteoporosis GI Medical History: GERD History: No Pertinent History Psycho-Social History: Depression Female Reproductive Disorders: No Pertinent History Other Medical History: PRE-DIABETIC, "4 HEART MURMURS", HX OF PEPTIC ULCER REQUIRING INTERVENTION, ORTHOSTATIC HYPOTENSION. 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 PATIENT HAD TUBES PUT IN B EAR IN 1990 BUT THEY ARE NO LONGER IN PLACE. SHE REPORTS CHRONIC INNER EAR INFECTIONS AND FLUID BUILD UP IN EARS. PATIENT DID HAVE A PREVIOUS ENT IN BUT HE RETIRED. PATIENT REPORTS HX OF SEVERE SINUS INFECTIONS REQUIRING SURGICAL PROCEDURE AFTER TUBE PLACEMENTS TO "CLEAR SINUS". - Past Surgical History Past Surgical History: Yes Neuro Surgical History: No Pertinent History Cardiac: No Pertinent History Respiratory: No Pertinent History Gastrointestinal: No Pertinent History Genitourinary: No Pertinent History Musculoskeletal: No Pertinent History Female Surgical History: Hysterectomy, Dilation & Curettage Other Surgical History: TUBES IN EARS X2, TONSILLECTOMY, EAR SURGERY-EAR LOBE REPAIRED, CYST REMOVED OFF TAILBONE, EGD w/clips for bleeding ulcer - Social History Smoking Status: Never smoker Exposure to second hand smoke: Yes Drug Use: none Patient Lives Alone: No - Nursing Vital Signs Nursing Vital Signs: Initial Vital Signs Temperature 96.7 F 09/30/23 19:47 Pulse Rate 69 09/30/23 19:47 Respiratory Rate 18 09/30/23 19:47 Blood Pressure 132/73 09/30/23 19:47 O2 Sat by Pulse Oximetry 97 09/30/23 19:47 Pain Scale Pain Intensity 8 - Physical Exam General Appearance: no apparent distress, alert, anxiety Eyes, Ears, Nose, Throat Exam: normal ENT inspection, moist mucous membranes Neck Exam: normal inspection, non-tender, supple, full range of motion Cardiovascular/Respiratory Exam: chest non-tender, no respiratory distress Abdominal Exam: non-tender Back Exam: normal inspection, normal range of motion, No CVA tenderness Shoulder Exam: normal inspection, no evidence of injury, normal ROM, soft tissue tenderness (Left shoulder) Elbow/Forearm Exam: normal inspection, non-tender, no evidence of injury, normal ROM Wrist Exam: normal inspection, non-tender, no evidence of injury, normal ROM Hand Exam: normal inspection, non-tender, no evidence of injury, normal ROM Neuro/Tendon Exam: normal sensation, normal motor functions, normal tendon functions, responds to pain, no evidence tendon injury Mental Status Exam: alert, oriented x 3, cooperative Skin Exam: normal color, warm, dry SpO2 Interpretation: normal O2 Delivery: Room Air - Course Nursing assessment & vital signs reviewed: Yes Ordered Tests: Active Orders 24 hr Category Date Time Status SHOULDER Stat Exams 09/30/23 20:02 Taken - Progress Progress: unchanged, pain not gone completely, re-examined Progress Note: 09/30/23 21:00 My medical decision making and the assignment of low complexity to this roberth mobley's medical issue today is based on review of the patient's past medical history, review the patient medication list, review the patient drug allergy list, history present illness and physical findings on examination. The workup in this patient today is x-ray of the patient's left shoulder. Differential diagnoses include ligament strain, fracture left shoulder, dislocated left shoulder I interpreted the patient's x-ray of her left shoulder. There is no evidence of any acute fracture or dislocation. Counseled pt/family regarding: diagnosis, need for follow-up, rad results Medical Desision Making - Diagnostic Testing Diagnostic test were ordered, analyzed, and reviewed by me: Yes Radiological Interpretation: Interpreted by me - Risk of complications The pt has a mod risk of morbidity or mortality based on: Need for prescription drug management - Departure Departure Disposition: Home Clinical Impression: Left shoulder strain Condition: Stable Critical Care Time: No Referrals: UMBERTO WILD DO [Primary Care Provider] - Follow up/PCP as directed Additional Instructions: Ice pack to left shoulder 3 times a day for the next 48 hours. Take your medication as prescribed. Call your primary care provider tomorrow, 10/01/2023, to make arrangements for further evaluation and management to be seen in the next 3 to 5 days. Prescriptions: Prednisone 5 mg [Deltasone 5 mg] 5 mg PO TID #12 tablet Orphenadrine Citrate 100 mg [Norflex 100 MG Tablet] 100 mg PO BID #10 tab
[2023-09-30 19:49] VITALS: RESP 18; TEMP 96.7
[2023-09-30 20:31] VITALS: PULSE 64
[2023-09-30] MEDS ORDERED: PERCOCET TABLET 5/325MG ONE (21:09)
[2023-09-30] MEDS: PERCOCET TABLET 5/325MG PO STA (21:10)
[2023-09-30 21:13] VITALS: BP 142/59; O2SAT 98
--- NOTE | 2023-10-01 08:37 | XRAY ---
Indication: Pain following injury. Comparison: None 3 view left shoulder demonstrates osteopenia and mediastinal/left lung calcified granulomas. No other bony, articular, or soft tissue abnormalities.
== END 2023-09-30 21:15 | disposition home or self-care (01) ==
LOC: ED 19:37
DX: S46.912A Strain of unspecified muscle, fascia and tendon at shoulder and upper arm level, left arm, initial encounter (principal); X50.0XXA Overexertion from strenuous movement or load, initial encounter; M25.512 Pain in left shoulder; I10 Essential (primary) hypertension; E78.5 Hyperlipidemia, unspecified; E11.9 Type 2 diabetes mellitus without complications; Z79.52 Long term (current) use of systemic steroids; Z79.84 Long term (current) use of oral hypoglycemic drugs; Z79.899 Other long term (current) drug therapy
CPT/HCPCS: 73030; 99283; A9270-GY

== ENCOUNTER 2024-09-28 15:33 | Inpatient (IN) | payer MEDICARE ==
[2024-09-28] MEDS ORDERED: Sodium Chloride 0.9% 500 ML 500 ML IV ONE (16:18)
[2024-09-28] MEDS: Sodium Chloride 0.9% 500 ML 500 ML IV ONE (16:20)
[2024-09-28 16:43] LABS: Absolute Neutrophil Ct (ANC) 7.36 x10^3/uL (1.56-6.13); BASOPHIL % 0.5 % (0.1-1.2); Basophil (Absolute #) 0.04 x10^3/uL (0.01-0.08); Eosinophil % 2.9 % (0.7-5.8); Eosinophil (Absolute #) 0.25 x10^3/uL (0.04-0.36); Hematocrit 41.8 % (34.1-44.9); Hemoglobin 14.4 g/dL (11.2-15.7); IMMATURE GRAN # 0.05 x10^3u/L (0.001-0.031); IMMATURE GRAN % 0.6 % (0.001-0.429); Lymphocyte (Absolute #) 0.35 x10^3/uL (1.18-3.74); Mean Cell Volume 88.7 fL (79.4-94.8); Mean Corpuscular Hemoglobin 30.6 pg (25.6-32.2); Mean Corpuscular Hgb Concent. 34.4 g/dL (32.2-35.5); Mean Platelet Volume 9.5 fL (9.4-12.3); Monocyte (Absolute #) 0.72 x10^3/uL (0.24-0.86); Monocytes % 8.2 % (4.7-12.5); Neutrophil % 83.8 % (34.0-71.1); Platelet Count 151 x10^3/uL (182-369); Red Blood Count 4.71 x10^6/uL (3.93-5.22); Red Cell Distribution Width 12.8 % (11.7-14.4); White Blood Count 8.8 x10^3/uL (3.98-10.04)
[2024-09-28 16:52] LABS: Appearance Turbid (Clear); Bacteria Many /HPF (None Seen); Bilirubin Small (Negative); Blood Small (Negative); Epithelial Cells Rare /HPF (None Seen); Glucose, Urine Negative (Negative); Ketones Trace (Negative); Leukocyte Esterase Large (Negative); Nitrite Negative (Negative); Ph 5.5 (4.6-8.0); Protein,Urine Dip 100 (Negative); Specific Gravity 1.015 (1.005-1.030); WBC >100 /HPF (0-5)
[2024-09-28 16:59] LABS: ALBUMIN 4.2 g/dL (3.5-5.0); ANION GAP 19.4 MEQ/L (5-15); BILIRUBIN,TOTAL 2.4 mg/dL (0.2-1.3); Calcium 8.9 mg/dL (8.4-10.2); Creatinine 1 1.27 mg/dL (0.52-1.04); EST GLOMERULAR FILTRATION RATE 45.8 ML/MIN; MAGNESIUM 1.4 mg/dL (1.6-2.3); Total Protein 7.1 g/dL (6.3-8.2)
[2024-09-28] MEDS ORDERED: MAGNESIUM SULF 2 G/50 ML BAG 2 GM/50 ML PIGGYBACK IV ONE (17:24)
[2024-09-28] MEDS: MAGNESIUM SULF 2 G/50 ML BAG 2 GM/50 ML PIGGYBACK IV ONE (17:25)
[2024-09-28 17:26] LABS: Slide Review 1 YES
--- NOTE | 2024-09-28 17:55 | XRAY ---
CLINICAL HISTORY: fall, head injury COMPARISON: No previous studies are available for comparison. TECHNIQUE: CT scan of the cervical spine was performed without the administration of intravenous contrast. Contiguous axial images were obtained from the skull base to the upper thoracic spine. Coronal and sagittal reformatted images were also reviewed. One of the following dose reduction techniques was utilized for this exam. Automated exposure control, adjustment of the mA and/or kV according to patient size, and use of iterative reconstruction. FINDINGS: Vertebrae: Reversed lordosis noted. The vertebral bodies are normal in height and alignment. No evidence of acute fracture or dislocation. The cortical and trabecular bone patterns are normal. No signs of lytic or sclerotic lesions. Normal configuration of the posterior elements. Intervertebral Discs: Degenrative changes manifested by disc space narrowing and osteophyte formation. Facet Joints: The facet joints are normal without evidence of dislocation, subluxation, or significant degenerative changes. Neural Foramina: The neural foramina are patent bilaterally at all levels. No evidence of foraminal narrowing or nerve root compression. Prevertebral Soft Tissues: The prevertebral soft tissues are normal in thickness without evidence of mass or abnormal fluid collection. Additional Findings: No other significant findings are noted in the visualized soft tissue structures or bony elements. IMPRESSION: 1. Reversed lordosis noted. 2. Degenerative changes manifested by disc space narrowing and osteophyte formation. 3. No evidence of acute fracture, or dislocation. Electronically Signed by: Clarita Matson MD. (09/28/2024 17:50:13 EDT)
[2024-09-28] MEDS ORDERED: Levofloxacin 500MG/100ML D5W 500 MG/100 ML BAG IV ONE (18:09)
[2024-09-28] MEDS: Levofloxacin 500MG/100ML D5W 500 MG/100 ML BAG IV STA (18:12)
--- NOTE | 2024-09-28 18:29 | XRAY ---
CLINICAL HISTORY: fall, head injury COMPARISON: 07/08/2014. TECHNIQUE: Axial non-contrast CT scan of the brain was performed from the skull base to the high parietal region. One of the following dose reduction techniques were utilized for this exam: Automated exposure control, adjustment of the mA and/or kV according to patient size, use of iterative reconstruction. FINDINGS: Brain Parenchyma: Normal attenuation of the cerebral hemispheres, cerebellum, and brainstem. No evidence of acute infarct, hemorrhage, or mass effect. No abnormal areas of hypo- or hyperattenuation. Ventricular System: Ventricles are normal in size and configuration. No evidence of hydrocephalus or ventricular enlargement. Subarachnoid Spaces: Normal sulci and cisterns. No evidence of subarachnoid hemorrhage or extra-axial fluid collections. Cerebellum and Brainstem: Normal size and signal. No masses, lesions, or areas of abnormal signal. Orbits: Normal appearance of the globes, optic nerves, and extraocular muscles. No evidence of orbital masses or abnormal signal. Sinuses: Clear paranasal sinuses. No evidence of sinusitis or mucosal thickening. Mastoid Air Cells: Clear mastoid air cells. No evidence of mastoiditis. Skull: Normal skull morphology. IMPRESSION: 1. No CT signs of acute traumatic changes. 2. Normal CT of the head without contrast. Electronically Signed by: Clarita Matson MD. (09/28/2024 18:24:26 EDT)
--- NOTE | 2024-09-28 19:54 | ERPHSYRPT ---
- History of Present Illness Time Seen by Provider: 09/28/24 15:41 Source: patient Exam Limitations: no limitations Patient Subjective Stated Complaint: Fall Triage Nursing Assessment: Patient brought into ED per EMS and transferred to bed with assist of 2. Patient A+O X3. Patient's skin pink, warm and dry. Patient states around 1330 she went to restroom an when she turned to sit on the toilet she tripped and fell landing on her knees and hit head. Patient states she wasn't able to stand up and hit her head on the wall and her right hip on the toilet. Patient complains of lico knee pain, right hip pain and headache 08/18. Bruising noted to lico knees. Physician History: 68-year-old female with history of hypertension, hyperlipidemia, diabetes mellitus, hypothyroidism, GERD presented in the ER after she went to the bathroom around 1:30 PM, was going to sit on the toilet, tripped and fell, hitting her right hip and did hit her head against the showerhead. Patient was weak and could not get up. Patient called EMS for lift assist but reported feeling generalized weakness fatigue tiredness and getting wobbly while walking. Denies any focal numbness tingling or weakness. She denies any chest pain palpitations or shortness of breath before or after the fall. No abdominal pain nausea or vomiting reported. Allergies/Adverse Reactions: povidone-iodine [From Betadine] Allergy (Severe, Verified 09/28/24 15:37) Rash soap [From Betadine] Allergy (Severe, Verified 09/28/24 15:37) Rash cefaclor [From Ceclor] Allergy (Verified 09/28/24 15:37) cephalexin monohydrate [From Keflex] Allergy (Verified 09/28/24 15:37) erythromycin base [Erythromycin Base] Allergy (Verified 09/28/24 15:37) erythromycin estolate [From Ilosone] Allergy (Verified 09/28/24 15:37) iron Allergy (Verified 09/28/24 15:37) latex Allergy (Verified 09/28/24 15:37) oxytetracycline [From Terramycin] Allergy (Verified 09/28/24 15:37) oxytetracycline HCl [From Terramycin] Allergy (Verified 09/28/24 15:37) Penicillins Allergy (Verified 09/28/24 15:37) Sulfa (Sulfonamide Antibiotics) Allergy (Verified 09/28/24 15:37) Home Medications: Atorvastatin Calcium [Lipitor] 20 mg PO DAILY 08/09/17 [History] Citalopram Hydrobromide 20 mg* [ceLEXa 20 MG] 20 mg PO DAILY 08/09/17 [History] Levothyroxine Sodium 25 Mcg [Synthroid 25 Mcg] 25 mcg PO DAILY 09/28/24 [History] Lisinopril 5 mg [Zestril 5 MG] 5 mg PO DAILY 09/28/24 [History] Metformin HCl [Metformin HCl ER] 500 mg PO DAILY 09/28/24 [History] Multivit-Min/Folic Acid/Bfa728 [Alive Women's Gummy Vitamin] 1 tab PO DAILY 09/28/24 [History] Hx Tetanus, Diphtheria Vaccination/Date Given: No Hx Influenza Vaccination/Date Given: Yes Hx Pneumococcal Vaccination/Date Given: Yes Immunizations Up to Date: Yes Travel Risk - International Travel Have you traveled outside of the country in past 3 weeks: No - Emerging Infectious Disease Are you exhibiting symptoms associated with any current EIDs: No - Review of Systems Constitutional: Fatigue, Weakness Eyes: No Symptoms Ears, Nose, & Throat: No Symptoms Respiratory: No Symptoms Cardiac: No Symptoms Abdominal/Gastrointestinal: No Symptoms Genitourinary Symptoms: No Symptoms Musculoskeletal: Fall, Joint Pain Skin: No Symptoms Neurological: No Symptoms Endocrine: No Symptoms Immunological/Allergic: No Symptoms - Past Medical History Pertinent Past Medical History: Yes Neurological History: No Pertinent History ENT History: No Pertinent History Cardiac History: Hypertension Respiratory History: No Pertinent History Endocrine Medical History: Diabetes Type II, Hypoglycemia, Hypothyroidism Musculoskeletal History: Osteoarthritis, Osteoporosis GI Medical History: GERD History: No Pertinent History Psycho-Social History: Depression Female Reproductive Disorders: No Pertinent History Other Medical History: GERD, - Past Surgical History Past Surgical History: Yes Neuro Surgical History: No Pertinent History Cardiac: No Pertinent History Respiratory: No Pertinent History Gastrointestinal: No Pertinent History Genitourinary: No Pertinent History Musculoskeletal: No Pertinent History Female Surgical History: Hysterectomy, Dilation & Curettage Other Surgical History: TUBES IN EARS X2, TONSILLECTOMY, EAR SURGERY-EAR LOBE REPAIRED, CYST REMOVED OFF TAILBONE, EGD w/clips for bleeding ulcer - Social History Smoking Status: Never smoker Exposure to second hand smoke: No Drug Use: none - Social Determinants of Health Will the patient participate in the screening: Yes Do you worry about a steady place to live?: No Do you have any problems with any of the following?: No known problems In the past 12 months,have you had to go without utilities?: No Transportation Issues: No Has anyone in your support network made you feel unsafe?: No Have you or anyone in your house had to go w/o enough food: No - Nursing Vital Signs Nursing Vital Signs: Initial Vital Signs Temperature 97.5 F 09/28/24 15:43 Pulse Rate 86 09/28/24 15:43 Respiratory Rate 20 09/28/24 15:43 Blood Pressure 152/57 09/28/24 15:43 O2 Sat by Pulse Oximetry 96 09/28/24 15:43 Pain Scale Pain Intensity 4 - Physical Exam General Appearance: no apparent distress, alert Eye Exam: PERRL/EOMI Ears, Nose, Throat Exam: normal ENT inspection, pharynx normal, moist mucous membranes Neck Exam: normal inspection, non-tender, supple, full range of motion Respiratory Exam: normal breath sounds, lungs clear Cardiovascular Exam: regular rate/rhythm, normal heart sounds Gastrointestinal/Abdomen Exam: soft, normal bowel sounds, No tenderness Back Exam: normal inspection, normal range of motion Extremity Exam: normal inspection, normal range of motion, pelvis stable, other (Mild tenderness right lateral hip but intact range of motion with no deformity.) Neurologic Exam: alert, oriented x 3, cooperative, brand coordinator II-XII nml as tested, normal mood/affect, nml cerebellar function, nml station & gait, sensation nml, No motor deficits Skin Exam: normal color SpO2 Interpretation: normal SpO2: 98 O2 Delivery: Room Air - Course EKG Interpreted by Me: RATE (75), Sinus Rhythm, NORMAL AXIS, NORMAL INTERVALS, Non-specific ST Changes Ordered Tests: Active Orders 24 hr Category Date Time Status Up With Assistance TID Activity 09/28/24 20:58 Active Code Status Order ROUTINE Care 09/28/24 20:58 Active EKG-ER Only STAT Care 09/28/24 19:54 Completed Orthostatic Vital Signs STAT Care 09/28/24 16:16 Completed POCT Glucose Check ACHS Care 09/28/24 20:[address] in Observation ROUTINE Care 09/28/24 20:58 Active Consistent Carbohydrate Diet 2000 Calorie Diet 09/29/24 Breakfast Active CERVICAL SPINE WO CONTRAST [CT] Stat Exams 09/28/24 16:15 Completed CHEST 1 VIEW (PORTABLE) Stat Exams 09/28/24 16:16 Completed HEAD WITHOUT CONTRAST [CT] Stat Exams 09/28/24 16:15 Completed CBC AM.LAB Lab 09/29/24 04:00 Ordered CBC W DIFF Stat Lab 09/28/24 16:38 Completed CK-Creatinine Phosphokinase Stat Lab 09/28/24 17:09 Completed CMP AM.LAB Lab 09/29/24 04:00 Ordered CMP Stat Lab 09/28/24 16:38 Completed CULTURE,URINE Stat Lab 09/28/24 16:21 Received Direct Bilirubin AM.LAB Lab 09/29/24 04:00 Ordered Lactic Acid Stat Lab 09/28/24 17:28 Completed Lactic Acid Stat Lab 09/28/24 19:31 Received MAGNESIUM Stat Lab 09/28/24 16:38 Completed PROCALCITONIN Stat Lab 09/28/24 17:00 Completed TROPONIN Q4H Lab 09/28/24 16:38 Completed TROPONIN Q4H Lab 09/28/24 20:30 Ordered TROPONIN Q4H Lab 09/29/24 00:30 Ordered UA W/RFX UR CULTURE Stat Lab 09/28/24 16:21 Completed EKG REPEAT IN AM RT 09/28/24 20:58 Active Transfer Order Routine Transfer 09/28/24 Completed Medication Summary Generic Name Dose Route Start Last Admin Trade Name Freq PRN Reason Stop Dose Admin Acetaminophen 650 mg 09/28/24 20:58 Acetaminophen 325 Mg Tablet PO 10/28/24 20:57 Q6H PRN PRN PAIN AND/OR FEVER Citalopram Hydrobromide 20 mg 09/29/24 10:00 Citalopram Hydrobromide 20 Mg Tablet PO 10/29/24 09:59 DAILY ADOLFO Enoxaparin Sodium 40 mg 09/29/24 10:00 Enoxaparin Sodium 40 Mg/0.4 Ml Syringe SQ 10/29/24 09:59 DAILY ADOLFO Levofloxacin/Dextrose 500 mg in 100 mls @ 100 mls/hr 09/29/24 16:00 Levofloxacin 500mg/100ml D5w IV 10/29/24 15:59 Q24H10 ADOLFO Sodium Chloride 1,000 mls @ 50 mls/hr 09/28/24 20:58 Sodium Chloride 0.9% 1000 Ml IV 10/28/24 20:57 .Q20H [facility] Insulin Human Lispro 0 unit 09/28/24 20:58 Insulin Lispro 1 Unit SQ 10/28/24 20:57 UD PRN HYPERGLYCEMIA Levothyroxine Sodium 25 mcg 09/29/24 10:00 Levothyroxine Sodium 50 Mcg Tablet PO 10/29/24 09:59 DAILY ADOLFO Non-Formulary Medication 20 mg 09/29/24 10:00 Atorvastatin Calcium [Lipitor] PO 10/29/24 09:59 DAILY ADOLFO Non-Formulary Medication 20 mg 09/29/24 10:00 Omeprazole 20 Mg [Prilosec 20 Mg] PO 10/29/24 09:59 DAILY ADOLFO Non-Formulary Medication 2.5 mg 09/29/24 10:00 Lisinopril [Zestril] PO 10/29/24 09:59 DAILY ADOLFO Discontinued Medications Generic Name Dose Route Start Last Admin Trade Name Freq PRN Reason Stop Dose Admin Sodium Chloride 500 mls @ 500 mls/hr 09/28/24 16:16 09/28/24 17:23 Sodium Chloride 0.9% 500 Ml IV 09/28/24 17:15 Infused .Q1H ONE Infusion Sodium Chloride Confirm 09/28/24 16:18 Sodium Chloride 0.9% 500 Ml Administered 09/28/24 16:19 Dose 500 mls @ ud IV .STK-MED ONE Levofloxacin/Dextrose 500 mg in 100 mls @ 100 mls/hr 09/28/24 17:21 09/28/24 19:56 Levofloxacin 500mg/100ml D5w IV 09/28/24 18:20 Infused STAT STA Infusion Magnesium Sulfate/Water 2 gm in 50 mls @ 100 mls/hr 09/28/24 17:22 09/28/24 18:03 Magnesium Sulf 2 G/50 Ml Bag IV 09/28/24 17:51 Infused ONCE ONE Infusion Magnesium Sulfate/Water Confirm 09/28/24 17:24 Magnesium Sulf 2 G/50 Ml Bag Administered 09/28/24 17:25 Dose 2 gm in 50 mls @ ud IV .STK-MED ONE Levofloxacin/Dextrose Confirm 09/28/24 18:09 Levofloxacin 500mg/100ml D5w Administered 09/28/24 18:10 Dose 500 mg in 100 mls @ ud IV .K-MED ONE Lab/Rad Data: Laboratory Result Diagrams 09/28/24 16:38 09/28/24 16:38 Laboratory Results 09/28/24 09/28/24 09/28/24 Range/Units 17:28 17:09 17:00 WBC (3.98-10.04) x10^3/uL RBC (3.93-5.22) x10^6/uL Hgb (11.2-15.7) g/dL Hct (34.1-44.9) % MCV (79.4-94.8) fL MCH (25.6-32.2) pg MCHC (32.2-35.5) g/dL RDW (11.7-14.4) % Plt Count (182-369) x10^3/uL MPV (9.4-12.3) fL Gran % (34.0-71.1) % Immature Gran % (Auto) (0.001-0.429) % Nucleat RBC Rel Count (0.00-0.2) % Eos # (Auto) (0.04-0.36) x10^3/uL Immature Gran # (Auto) (0.001-0.031) x10^3u/L Absolute Lymphs (auto) (1.18-3.74) x10^3/uL Absolute Monos (auto) (0.24-0.86) x10^3/uL Absolute Nucleated RBC (0.00-0.012) x10^3u/L Lymphocytes % (19.3-51.7) % Monocytes % (4.7-12.5) % Eosinophils % (0.7-5.8) % Basophils % (0.1-1.2) % Absolute Granulocytes (1.56-6.13) x10^3/uL Basophils # (0.01-0.08) x10^3/uL Sodium (135-145) mmol/L Potassium (3.5-5.1) mmol/L Chloride (98-107) mmol/L Carbon Dioxide (22-30) mmol/L Anion Gap (5-15) MEQ/L BUN (7-17) mg/dL Creatinine (0.52-1.04) mg/dL Estimated GFR ML/MIN Glucose (74-106) mg/dL Lactic Acid 2.1 H (0.4-2.0) Calcium (8.4-10.2) mg/dL Magnesium (1.6-2.3) mg/dL Total Bilirubin (0.2-1.3) mg/dL AST (14-36) U/L ALT (0-35) U/L Alkaline Phosphatase (38-126) U/L Creatine Kinase 289 H (30-135) U/L Troponin I (0.000-0.033) ng/mL Serum Total Protein (6.3-8.2) g/dL Albumin (3.5-5.0) g/dL Procalcitonin 0.378 H (0.030-0.080) ng/mL Urine Color (Yellow) Urine Appearance (Clear) Urine pH (4.6-8.0) Ur Specific [place] (1.005-1.030) Urine Protein (Negative) Urine Glucose (UA) (Negative) mg/dL Urine Ketones (Negative) Urine Blood (Negative) Urine Nitrite (Negative) Urine Bilirubin (Negative) Urine Urobilinogen (0.2) mg/dL Ur Leukocyte Esterase (Negative) U Hyaline Cast (Auto) (0-2) /LPF Urine Microscopic RBC (0-5) /HPF Urine Microscopic WBC (0-5) /HPF Ur Epithelial Cells (None Seen) /HPF Urine Bacteria (None Seen) /HPF Urine Culture Reflexed (NO) Slides for Path Review 09/28/24 09/28/24 09/28/24 Range/Units 16:38 16:38 16:38 WBC 8.8 (3.98-10.04) x10^3/uL RBC 4.71 (3.93-5.22) x10^6/uL Hgb 14.4 (11.2-15.7) g/dL Hct 41.8 (34.1-44.9) % MCV 88.7 (79.4-94.8) fL MCH 30.6 (25.6-32.2) pg MCHC 34.4 (32.2-35.5) g/dL RDW 12.8 (11.7-14.4) % Plt Count 151 L (182-369) x10^3/uL MPV 9.5 (9.4-12.3) fL Gran % 83.8 H (34.0-71.1) % Immature Gran % (Auto) 0.6 H (0.001-0.429) % Nucleat RBC Rel Count 0.0 (0.00-0.2) % Eos # (Auto) 0.25 (0.04-0.36) x10^3/uL Immature Gran # (Auto) 0.05 H (0.001-0.031) x10^3u/L Absolute Lymphs (auto) 0.35 L (1.18-3.74) x10^3/uL Absolute Monos (auto) 0.72 (0.24-0.86) x10^3/uL Absolute Nucleated RBC 0.00 (0.00-0.012) x10^3u/L Lymphocytes % 4.0 L (19.3-51.7) % Monocytes % 8.2 (4.7-12.5) % Eosinophils % 2.9 (0.7-5.8) % Basophils % 0.5 (0.1-1.2) % Absolute Granulocytes 7.36 H (1.56-6.13) x10^3/uL Basophils # 0.04 (0.01-0.08) x10^3/uL Sodium 133 L (135-145) mmol/L Potassium 4.0 (3.5-5.1) mmol/L Chloride 97 L (98-107) mmol/L Carbon Dioxide 21 L (22-30) mmol/L Anion Gap 19.4 H (5-15) MEQ/L BUN 14 (7-17) mg/dL Creatinine 1.27 H (0.52-1.04) mg/dL Estimated GFR 45.8 ML/MIN Glucose 209 H (74-106) mg/dL Lactic Acid (0.4-2.0) Calcium 8.9 (8.4-10.2) mg/dL Magnesium 1.4 L (1.6-2.3) mg/dL Total Bilirubin 2.40 H (0.2-1.3) mg/dL AST 74 H (14-36) U/L ALT 39 H (0-35) U/L Alkaline Phosphatase 103 (38-126) U/L Creatine Kinase (30-135) U/L Troponin I < 0.012 (0.000-0.033) ng/mL Serum Total Protein 7.1 (6.3-8.2) g/dL Albumin 4.2 (3.5-5.0) g/dL Procalcitonin (0.030-0.080) ng/mL Urine Color (Yellow) Urine Appearance (Clear) Urine pH (4.6-8.0) Ur Specific [place] (1.005-1.030) Urine Protein (Negative) Urine Glucose (UA) (Negative) mg/dL Urine Ketones (Negative) Urine Blood (Negative) Urine Nitrite (Negative) Urine Bilirubin (Negative) Urine Urobilinogen (0.2) mg/dL Ur Leukocyte Esterase (Negative) U Hyaline Cast (Auto) (0-2) /LPF Urine Microscopic RBC (0-5) /HPF Urine Microscopic WBC (0-5) /HPF Ur Epithelial Cells (None Seen) /HPF Urine Bacteria (None Seen) /HPF Urine Culture Reflexed (NO) Slides for Path Review YES 09/28/24 Range/Units 16:21 WBC (3.98-10.04) x10^3/uL RBC (3.93-5.22) x10^6/uL Hgb (11.2-15.7) g/dL Hct (34.1-44.9) % MCV (79.4-94.8) fL MCH (25.6-32.2) pg MCHC (32.2-35.5) g/dL RDW (11.7-14.4) % Plt Count (182-369) x10^3/uL MPV (9.4-12.3) fL Gran % (34.0-71.1) % Immature Gran % (Auto) (0.001-0.429) % Nucleat RBC Rel Count (0.00-0.2) % Eos # (Auto) (0.04-0.36) x10^3/uL Immature Gran # (Auto) (0.001-0.031) x10^3u/L Absolute Lymphs (auto) (1.18-3.74) x10^3/uL Absolute Monos (auto) (0.24-0.86) x10^3/uL Absolute Nucleated RBC (0.00-0.012) x10^3u/L Lymphocytes % (19.3-51.7) % Monocytes % (4.7-12.5) % Eosinophils % (0.7-5.8) % Basophils % (0.1-1.2) % Absolute Granulocytes (1.56-6.13) x10^3/uL Basophils # (0.01-0.08) x10^3/uL Sodium (135-145) mmol/L Potassium (3.5-5.1) mmol/L Chloride (98-107) mmol/L Carbon Dioxide (22-30) mmol/L Anion Gap (5-15) MEQ/L BUN (7-17) mg/dL Creatinine (0.52-1.04) mg/dL Estimated GFR ML/MIN Glucose (74-106) mg/dL Lactic Acid (0.4-2.0) Calcium (8.4-10.2) mg/dL Magnesium (1.6-2.3) mg/dL Total Bilirubin (0.2-1.3) mg/dL AST (14-36) U/L ALT (0-35) U/L Alkaline Phosphatase (38-126) U/L Creatine Kinase (30-135) U/L Troponin I (0.000-0.033) ng/mL Serum Total Protein (6.3-8.2) g/dL Albumin (3.5-5.0) g/dL Procalcitonin (0.030-0.080) ng/mL Urine Color Dark Yellow A (Yellow) Urine Appearance Turbid A (Clear) Urine pH 5.5 (4.6-8.0) Ur Specific [place] 1.015 (1.005-1.030) Urine Protein 100 A (Negative) Urine Glucose (UA) Negative (Negative) mg/dL Urine Ketones Trace A (Negative) Urine Blood Small A (Negative) Urine Nitrite Negative (Negative) Urine Bilirubin Small A (Negative) Urine Urobilinogen 1.0 A (0.2) mg/dL Ur Leukocyte Esterase Large A (Negative) U Hyaline Cast (Auto) 11-20 (0-2) /LPF Urine Microscopic RBC 3-5 (0-5) /HPF Urine Microscopic WBC >100 A (0-5) /HPF Ur Epithelial Cells Rare (None Seen) /HPF Urine Bacteria Many A (None Seen) /HPF Urine Culture Reflexed YES (NO) Slides for Path Review - Progress Progress: improved Progress Note: 09/28/24 19:52 68-year-old is evaluated in the ER after she tripped and fell with hitting her head without LOC. No focal neurosymptoms but patient was weak enough to get up on her own and EMS asked to be called in. Patient is able to ambulate on presentation in the ER without any assistance but feels a little dizzy and lightheaded. Has negative cerebellar signs. I have obtained CT head and cervical spine which are negative for any acute intracranial findings of stroke or trauma. Patient chest x-ray is negative for any acute cardiopulmonary findings. EKG is normal sinus rhythm with no ST elevation. She is given fluids. Workup showed normal white count, chemistries with ALESSIA baseline creatinine of 0.9 and today is 1.27, elevated gap and elevated transaminases with total bili of 2.4 but patient does not have any abdominal pain or tenderness. A lactate of 2.1, elevated procalcitonin 0.3 and hypomagnesemia 1.4 for which she is getting replacement. CK level only 289. Does have UTI and given dose of Levaquin as patient has cephalosporin allergies. Patient is feeling better on reevaluation. I believe patient would benefit with observation admission. Discussed the results of workup with patient and offered observation admission which she understands and agrees. Discussed with Dr. Waters and patient is accepted for admission. Complexity of problem addressed: Moderate to high acuity Complexity of data reviewed/interpreted: Extensive Risk of complication: Moderate to high risk Discussed with : Heike Will see patient in: hospital (observation) Counseled pt/family regarding: lab results, diagnosis, need for follow-up, rad results Medical Desision Making - Independent Historian Additional History obtained from: Correction nurse - Discussion of managment Care discussed with:: hospitalist Reviewed:: Test results Agreed on:: Treatment plan Will see patient: in hospital - Diagnostic Testing Diagnostic test were ordered, analyzed, and reviewed by me: Yes Radiological Interpretation: Interpreted by me, Reviewed by me, Teleradiologist Report - Risk of complications The pt has a mod risk of morbidity or mortality based on: Need for prescription drug management The pt has a high risk of morbidity or mortality based on: Decision regarding hospitilization or escalation of hosp level of care - Departure Departure Disposition: Observation Clinical Impression: UTI (urinary tract infection), ALESSIA (acute kidney injury), General weakness, Hypomagnesemia, Fall Condition: Stable Critical Care Time: No
--- NOTE | 2024-09-28 20:05 | XRAY ---
CLINICAL HISTORY: gen weakness COMPARISON: No prior studies are available for comparison. TECHNIQUE: An X-ray image of the chest is obtained in 1 AP projection. FINDINGS: Pulmonary Parenchyma: Poor inspiratory effort resulting in the prominence of bilateral hilum and increased broncho-vascular markings Otherwsie, lungs are clear bilaterally. No evidence of consolidation, collapse, or focal opacities. No pulmonary nodules are identified. No evidence of pleural effusion or pleural thickening. Heart and Mediastinum: Borderline cardiomegaly. No mediastinal widening or masses. No hilar or mediastinal lymphadenopathy. Atherosclerotic calcification within the aortic knobe or Calcified area measuring 1.7 x 0.6 cm Bony Thorax: Bony thorax appears intact without fractures or deformities. Soft Tissues: Soft tissues overlying the chest wall are unremarkable. IMPRESSION: 1. Lungs are clear. 2. Mild cardiomegaly. Electronically Signed by: Clarita Matson MD. (09/28/2024 20:00:19 EDT)
--- NOTE | 2024-09-28 20:20 | PCM.HP ---
History of Present Illness - Chief Complaint Chief Complaint: weakness, fall Date: 09/28/24 History of Present Illness: 68-year-old woman with a history of DM2, HTN, depression, and hypothyroidism, who presented after a fall. The patient notes that she has been feeling a little bit weaker for the past few days, with some lightheadedness on standing. Denies any vertigo or nausea. However, today, she felt wobbly when she walked into the bathroom, and fell, hitting her right hip and eventually her head. Denies any loss of consciousness. However, she was unable to get up despite multiple attempts. She was eventually able to crawl to the bedroom, and so denies laying in any one spot for a prolonged period of time. Eventually she was able to call for help. Currently she denies any focal numbness or weakness. She denies any dysuria, but notes that she has increased urinary frequency for the past six weeks. Thinks she has been having good oral intake, but notes she has some dry mouth. She has some chest pain that is reproducible with palpation that she feels is a muscle strain after her fall. She also notes that she had the stomach flu last week, but thought she had fully recovered. - Review of Systems All Other Systems: Reviewed and Negative Medications & Allergies Home Medications: Home Medication List Atorvastatin Calcium [Lipitor] 20 mg PO DAILY 08/09/17 [History Confirmed 09/28/24] Citalopram Hydrobromide 20 mg* [ceLEXa 20 MG] 20 mg PO DAILY 08/09/17 [History Confirmed 09/28/24] Omeprazole 20 MG [Prilosec 20 mg] 20 mg PO DAILY #14 capsule. 08/15/17 [Rx Con firmed 09/28/24] Levothyroxine Sodium 25 Mcg [Synthroid 25 Mcg] 25 mcg PO DAILY 09/28/24 [History Confirmed 09/28/24] Lisinopril 5 mg [Zestril 5 MG] 5 mg PO DAILY 09/28/24 [History Confirmed 09/28/24] Metformin HCl [Metformin HCl ER] 500 mg PO DAILY 09/28/24 [History Confirmed 09/28/24] Multivit-Min/Folic Acid/[id number] [Alive Women's Gummy Vitamin] 1 tab PO DAILY 09/28/24 [History Confirmed 09/28/24] Allergies/Adverse Reactions: Allergies Allergy/AdvReac Type Severity Reaction Status Date / Time povidone-iodine Allergy Severe Rash Verified 09/28/24 15:37 [From Betadine] soap [From Betadine] Allergy Severe Rash Verified 09/28/24 15:37 cefaclor [From Ceclor] Allergy Verified 09/28/24 15:37 cephalexin monohydrate Allergy Verified 09/28/24 15:37 [From Keflex] erythromycin base Allergy Verified 09/28/24 15:37 [Erythromycin Base] erythromycin estolate Allergy Verified 09/28/24 15:37 [From Ilosone] iron Allergy Verified 09/28/24 15:37 latex Allergy Verified 09/28/24 15:37 oxytetracycline Allergy Verified 09/28/24 15:37 [From Terramycin] oxytetracycline HCl Allergy Verified 09/28/24 15:37 [From Terramycin] Penicillins Allergy Verified 09/28/24 15:37 Sulfa (Sulfonamide Allergy Verified 09/28/24 15:37 Antibiotics) - Past Medical History Past Medical History: Yes Neurological History: No Pertinent History ENT History: No Pertinent History Cardiac History: Hypertension Respiratory History: No Pertinent History Endocrine Medical History: Diabetes Type II, Hypoglycemia, Hypothyroidism Musculoskelatal History: Osteoarthritis, Osteoporosis GI Medical History: GERD History: No Pertinent History Pyscho-Social History: Depression Reproductive Disorders: No Pertinent History Comment: GERD, - Past Surgical History Past Surgical History: Yes Neuro Surgical History: No Pertinent History Cardiac History: No Pertinent History Respiratory Surgery: No Pertinent History GI Surgical History: No Pertinent History Genitourinary Surgical Hx: No Pertinent History Musculskeletal Surgical Hx: No Pertinent History Female Surgical History: Hysterectomy, Dilation & Curettage Other Surgical History: TUBES IN EARS X2, TONSILLECTOMY, EAR SURGERY-EAR LOBE REPAIRED, CYST REMOVED OFF TAILBONE, EGD w/clips for bleeding ulcer Significant Family History: diabetes (In her brother ) - Social History Smoking Status: Never smoker Exposure to second hand smoke: No Alcohol: None Drug Use: none - Social Determinants of Health Will the patient participate in the screening: Yes Do you worry about a steady place to live?: No Do you have any problems with any of the following?: No known problems In the past 12 months,have you had to go without utilities?: No Have you or anyone in your house had to go without enough: No Transportation Issues: No Has anyone in your support network made you feel unsafe?: No - Physical Exam Vital Signs: Vital Signs - 24 hr Temp Pulse Resp BP BP Pulse Ox 09/28/24 19:59 98 09/28/24 19:00 77 13 147/65 98 09/28/24 18:30 75 20 139/56 96 09/28/24 18:20 74 19 97 09/28/24 18:10 74 16 97 09/28/24 18:06 79 23 94 L 09/28/24 17:53 82 17 139/62 96 09/28/24 16:30 73 16 111/83 95 09/28/24 16:07 76 15 124/60 98 09/28/24 16:05 68 14 151/65 98 09/28/24 16:04 80 19 149/68 96 09/28/24 15:57 78 18 152/66 94 L 09/28/24 15:43 97.5 F 86 20 152/57 96 Physical exam GENERAL: Sitting up in bed in no acute distress. HEENT: Normocephalic, atraumatic. Dry mucous membranes. EYES: Normal inspection, anateric sclera, extraocular movements intact. NECK: Supple, full range of motion CV: Regular rate and rhythm, no murmurs, no gallops. No JVD or edema. PULM: clear to auscultation bilaterally, no active breathing. On room air. ABD: Nondistended, nontender. MSK: No joint effusions, full range of motion. SKIN: No rashes, normal color. NEURO: Face symmetric, no focal motor or sensory deficits. PSYCH: Alert, oriented x3 Results - Labs Lab/Micro Results: Lab Results-Last 24 Hours 09/28/24 09/28/24 09/28/24 Range/Units 16:21 16:38 16:38 WBC 8.8 (3.98-10.04) x10^3/uL RBC 4.71 (3.93-5.22) x10^6/uL Hgb 14.4 (11.2-15.7) g/dL Hct 41.8 (34.1-44.9) % MCV 88.7 (79.4-94.8) fL MCH 30.6 (25.6-32.2) pg MCHC 34.4 (32.2-35.5) g/dL RDW 12.8 (11.7-14.4) % Plt Count 151 L (182-369) x10^3/uL MPV 9.5 (9.4-12.3) fL Gran % 83.8 H (34.0-71.1) % Immature Gran % (Auto) 0.6 H (0.001-0.429) % Nucleat RBC Rel Count 0.0 (0.00-0.2) % Eos # (Auto) 0.25 (0.04-0.36) x10^3/uL Immature Gran # (Auto) 0.05 H (0.001-0.031) x10^3u/L Absolute Lymphs (auto) 0.35 L (1.18-3.74) x10^3/uL Absolute Monos (auto) 0.72 (0.24-0.86) x10^3/uL Absolute Nucleated RBC 0.00 (0.00-0.012) x10^3u/L Lymphocytes % 4.0 L (19.3-51.7) % Monocytes % 8.2 (4.7-12.5) % Eosinophils % 2.9 (0.7-5.8) % Basophils % 0.5 (0.1-1.2) % Absolute Granulocytes 7.36 H (1.56-6.13) x10^3/uL Basophils # 0.04 (0.01-0.08) x10^3/uL Sodium 133 L (135-145) mmol/L Potassium 4.0 (3.5-5.1) mmol/L Chloride 97 L (98-107) mmol/L Carbon Dioxide 21 L (22-30) mmol/L Anion Gap 19.4 H (5-15) MEQ/L BUN 14 (7-17) mg/dL Creatinine 1.27 H (0.52-1.04) mg/dL Estimated GFR 45.8 ML/MIN Glucose 209 H (74-106) mg/dL Lactic Acid (0.4-2.0) Calcium 8.9 (8.4-10.2) mg/dL Magnesium 1.4 L (1.6-2.3) mg/dL Total Bilirubin 2.40 H (0.2-1.3) mg/dL AST 74 H (14-36) U/L ALT 39 H (0-35) U/L Alkaline Phosphatase 103 (38-126) U/L Creatine Kinase (30-135) U/L Troponin I (0.000-0.033) ng/mL Serum Total Protein 7.1 (6.3-8.2) g/dL Albumin 4.2 (3.5-5.0) g/dL Procalcitonin (0.030-0.080) ng/mL Urine Color Dark Yellow A (Yellow) Urine Appearance Turbid A (Clear) Urine pH 5.5 (4.6-8.0) Ur Specific [place] 1.015 (1.005-1.030) Urine Protein 100 A (Negative) Urine Glucose (UA) Negative (Negative) mg/dL Urine Ketones Trace A (Negative) Urine Blood Small A (Negative) Urine Nitrite Negative (Negative) Urine Bilirubin Small A (Negative) Urine Urobilinogen 1.0 A (0.2) mg/dL Ur Leukocyte Esterase Large A (Negative) U Hyaline Cast (Auto) 11-20 (0-2) /LPF Urine Microscopic RBC 3-5 (0-5) /HPF Urine Microscopic WBC >100 A (0-5) /HPF Ur Epithelial Cells Rare (None Seen) /HPF Urine Bacteria Many A (None Seen) /HPF Urine Culture Reflexed YES (NO) Slides for Path Review YES 09/28/24 09/28/24 09/28/24 Range/Units 16:38 17:00 17:09 WBC (3.98-10.04) x10^3/uL RBC (3.93-5.22) x10^6/uL Hgb (11.2-15.7) g/dL Hct (34.1-44.9) % MCV (79.4-94.8) fL MCH (25.6-32.2) pg MCHC (32.2-35.5) g/dL RDW (11.7-14.4) % Plt Count (182-369) x10^3/uL MPV (9.4-12.3) fL Gran % (34.0-71.1) % Immature Gran % (Auto) (0.001-0.429) % Nucleat RBC Rel Count (0.00-0.2) % Eos # (Auto) (0.04-0.36) x10^3/uL Immature Gran # (Auto) (0.001-0.031) x10^3u/L Absolute Lymphs (auto) (1.18-3.74) x10^3/uL Absolute Monos (auto) (0.24-0.86) x10^3/uL Absolute Nucleated RBC (0.00-0.012) x10^3u/L Lymphocytes % (19.3-51.7) % Monocytes % (4.7-12.5) % Eosinophils % (0.7-5.8) % Basophils % (0.1-1.2) % Absolute Granulocytes (1.56-6.13) x10^3/uL Basophils # (0.01-0.08) x10^3/uL Sodium (135-145) mmol/L Potassium (3.5-5.1) mmol/L Chloride (98-107) mmol/L Carbon Dioxide (22-30) mmol/L Anion Gap (5-15) MEQ/L BUN (7-17) mg/dL Creatinine (0.52-1.04) mg/dL Estimated GFR ML/MIN Glucose (74-106) mg/dL Lactic Acid (0.4-2.0) Calcium (8.4-10.2) mg/dL Magnesium (1.6-2.3) mg/dL Total Bilirubin (0.2-1.3) mg/dL AST (14-36) U/L ALT (0-35) U/L Alkaline Phosphatase (38-126) U/L Creatine Kinase 289 H (30-135) U/L Troponin I < 0.012 (0.000-0.033) ng/mL Serum Total Protein (6.3-8.2) g/dL Albumin (3.5-5.0) g/dL Procalcitonin 0.378 H (0.030-0.080) ng/mL Urine Color (Yellow) Urine Appearance (Clear) Urine pH (4.6-8.0) Ur Specific [place] (1.005-1.030) Urine Protein (Negative) Urine Glucose (UA) (Negative) mg/dL Urine Ketones (Negative) Urine Blood (Negative) Urine Nitrite (Negative) Urine Bilirubin (Negative) Urine Urobilinogen (0.2) mg/dL Ur Leukocyte Esterase (Negative) U Hyaline Cast (Auto) (0-2) /LPF Urine Microscopic RBC (0-5) /HPF Urine Microscopic WBC (0-5) /HPF Ur Epithelial Cells (None Seen) /HPF Urine Bacteria (None Seen) /HPF Urine Culture Reflexed (NO) Slides for Path Review 09/28/24 Range/Units 17:28 WBC (3.98-10.04) x10^3/uL RBC (3.93-5.22) x10^6/uL Hgb (11.2-15.7) g/dL Hct (34.1-44.9) % MCV (79.4-94.8) fL MCH (25.6-32.2) pg MCHC (32.2-35.5) g/dL RDW (11.7-14.4) % Plt Count (182-369) x10^3/uL MPV (9.4-12.3) fL Gran % (34.0-71.1) % Immature Gran % (Auto) (0.001-0.429) % Nucleat RBC Rel Count (0.00-0.2) % Eos # (Auto) (0.04-0.36) x10^3/uL Immature Gran # (Auto) (0.001-0.031) x10^3u/L Absolute Lymphs (auto) (1.18-3.74) x10^3/uL Absolute Monos (auto) (0.24-0.86) x10^3/uL Absolute Nucleated RBC (0.00-0.012) x10^3u/L Lymphocytes % (19.3-51.7) % Monocytes % (4.7-12.5) % Eosinophils % (0.7-5.8) % Basophils % (0.1-1.2) % Absolute Granulocytes (1.56-6.13) x10^3/uL Basophils # (0.01-0.08) x10^3/uL Sodium (135-145) mmol/L Potassium (3.5-5.1) mmol/L Chloride (98-107) mmol/L Carbon Dioxide (22-30) mmol/L Anion Gap (5-15) MEQ/L BUN (7-17) mg/dL Creatinine (0.52-1.04) mg/dL Estimated GFR ML/MIN Glucose (74-106) mg/dL Lactic Acid 2.1 H (0.4-2.0) Calcium (8.4-10.2) mg/dL Magnesium (1.6-2.3) mg/dL Total Bilirubin (0.2-1.3) mg/dL AST (14-36) U/L ALT (0-35) U/L Alkaline Phosphatase (38-126) U/L Creatine Kinase (30-135) U/L Troponin I (0.000-0.033) ng/mL Serum Total Protein (6.3-8.2) g/dL Albumin (3.5-5.0) g/dL Procalcitonin (0.030-0.080) ng/mL Urine Color (Yellow) Urine Appearance (Clear) Urine pH (4.6-8.0) Ur Specific [place] (1.005-1.030) Urine Protein (Negative) Urine Glucose (UA) (Negative) mg/dL Urine Ketones (Negative) Urine Blood (Negative) Urine Nitrite (Negative) Urine Bilirubin (Negative) Urine Urobilinogen (0.2) mg/dL Ur Leukocyte Esterase (Negative) U Hyaline Cast (Auto) (0-2) /LPF Urine Microscopic RBC (0-5) /HPF Urine Microscopic WBC (0-5) /HPF Ur Epithelial Cells (None Seen) /HPF Urine Bacteria (None Seen) /HPF Urine Culture Reflexed (NO) Slides for Path Review - Radiology Impressions Radiology Exams & Impressions: Radiology Procedures Category Date Time Status CERVICAL SPINE WO CONTRAST [CT] Stat Exams 09/28/24 16:15 Completed CHEST 1 VIEW (PORTABLE) Stat Exams 09/28/24 16:16 Completed HEAD WITHOUT CONTRAST [CT] Stat Exams 09/28/24 16:15 Completed Chest x-ray - no infiltrate, effusion, or edema (Images personally reviewed) CT head - no evidence of trauma, no acute intracranial changes CT C-spine - no acute abnormalities Assessment/Plan (1) ALESSIA (acute kidney injury) Current Visit: Yes Status: Acute Assessment & Plan: A 68-year-old woman with a history of type 2 diabetes, hypertension, depression, and hypothyroidism, here after a fall with generalized weakness, found to have ALESSIA and acute cystitis. ## Acute kidney injury - likely secondary to poor p.o. intake related to her UTI, with perhaps some contribution from dehydration after gastroenteritis last week. Baseline creatinine appears to be around 1, currently up to 1.3. - Given NS 500 cc bolus in the ED - Start continuous NS at 50 milliliters per hour - Repeat BMP in the morning ## Acute cystitis - with pyuria on UA, causing generalized weakness and falls. - Start Levaquin (allergy to penicillin and cephalexin) - Follow up urine culture ## elevated bilirubin - No abdominal pain, no jaundice, no history of liver disease. - Repeat LFTs in the morning, including direct bilirubin - If not improved with fluids, can obtain hepatic imaging ## type 2 diabetes - only on metformin at home. Last hemoglobin A1c was 6.8 last month. - Hold home metformin due to hospitalization and ALESSIA - Start low-dose sliding scale insulin - Diabetic diet ## Hypertension - Blood pressure generally controlled. - Resume home lisinopril 5 mg daily (low enough dose that should not be affecting her renal function as above, which should be improving with fluids in any case) ## hypothyroidism - Continue home levothyroxine 25 mcg daily ## Depression - Continue home Celexa - Repeat EKG in the morning to assess QTc duration on both Celexa and Levaquin Code status: DNR (confirmed with patient today) Prophylaxis: Lovenox 40 daily Diet: Diabetic Dispo: Place in observation Entirety of encounter took place via live audio/video telemedicine device, with remote physician and patient in hospital, with the assistance of the bedside nurse. Flavio Waters MD Telemedicine Hospitalist [facility] Code(s): N17.9 - ACUTE KIDNEY FAILURE, UNSPECIFIED Telemedicine Encounter - Telemedicine Encounter Telemedicine Encounter: "The entirety of this encounter was performed via Telemedicine" This visit was performed using real-time audio and video connection between my location and thepatients locationwith the assistance of a surrogateat the patients location. Written or verbal consent was obtained from the patient/guardian to perform this [facility]. Any patient questions regarding the telemedicine interaction were answered.
[2024-09-28] MEDS: Sodium Chloride 0.9% 1000 ML 1,000 ML IV SCH (21:48)
[2024-09-29 05:51] LABS: Hematocrit 38.4 % (34.1-44.9); Mean Cell Volume 89.1 fL (79.4-94.8); Mean Corpuscular Hemoglobin 30.2 pg (25.6-32.2); Mean Corpuscular Hgb Concent. 33.9 g/dL (32.2-35.5); Mean Platelet Volume 9.9 fL (9.4-12.3); Platelet Count 138 x10^3/uL (182-369); Red Blood Count 4.31 x10^6/uL (3.93-5.22); Red Cell Distribution Width 12.7 % (11.7-14.4); White Blood Count 6.4 x10^3/uL (3.98-10.04)
[2024-09-29 06:30] LABS: Slide Review YES
[2024-09-29 06:39] LABS: ALBUMIN 3.8 g/dL (3.5-5.0); ANION GAP 18.2 MEQ/L (5-15); BILIRUBIN,TOTAL 1.7 mg/dL (0.2-1.3); Calcium 8.6 mg/dL (8.4-10.2); Creatinine 1 1.03 mg/dL (0.52-1.04); Direct Bilirubin 0.6 mg/dL (0.0-0.4); EST GLOMERULAR FILTRATION RATE 58.9 ML/MIN; Potassium 3.9 mmol/L (3.5-5.1); Total Protein 6.6 g/dL (6.3-8.2)
[2024-09-29] MEDS ORDERED: NON-FORMULARY ITEM (Omeprazole 20 Mg [Prilosec 20 Mg] 20 MG Capsule.Dr) PO SCH (10:00)
[2024-09-29] MEDS ORDERED: SYNTHROID 50 MCG PO SCH (10:00)
[2024-09-29] MEDS ORDERED: NON-FORMULARY ITEM (Atorvastatin Calcium [Lipitor] 20 MG Tablet) PO SCH (10:00)
[2024-09-29] MEDS ORDERED: NON-FORMULARY ITEM (Lisinopril [Zestril] 2.5 MG Tablet) PO SCH (10:00)
[2024-09-29] MEDS: Protonix 40MG Tablet PO SCH (10:36)
[2024-09-29] MEDS: ceLEXa 20 MG PO SCH (10:36)
[2024-09-29] MEDS: Zestril 5 MG PO SCH (10:36)
[2024-09-29] MEDS: ENOXAPARIN SODIUM SQ SCH (10:37)
[2024-09-29] MEDS: ZOCOR 20MG PO SCH (10:37)
[2024-09-29] MEDS: SYNTHROID 25 MCG PO SCH (10:37)
[2024-09-29] MEDS: Levaquin 250MG/50ML D5W 250 MG/50 ML BAG IV SCH (10:38)
[2024-09-29] MEDS: TYLENOL 325 MG PO PRN (10:43)
--- NOTE | 2024-09-29 13:23 | PCM.NOTE ---
Date and Time: 09/29/24 1316 Subjective Assessment: Ms. Hernández is a 68-year-old woman with a history of DM2, HTN, depression, and hypothyroidism. She presented to the ER on 09/28/24 after a fall. The patient notes that she has been feeling a little bit weaker for the past few days, with some lightheadedness on standing. Denies any vertigo or nausea. However, yesterday, she felt wobbly when she walked into the bathroom, and fell, hitting her right hip and eventually her head. Denies any loss of consciousness. However, she was unable to get up despite multiple attempts. She was eventually able to crawl to the bedroom, and so denies laying in any one spot for a prolonged period of time. Eventually she was able to call for help. Currently she denies any focal numbness or weakness. She denies any dysuria, but notes that she has increased urinary frequency for the past six weeks. Thinks she has been having good oral intake, but notes she has some dry mouth. She has some chest pain that is reproducible with palpation that she feels is a muscle strain after her fall. She also notes that she had the stomach flu last week, but thought she had fully recovered. CK 1286 today and IVF increased to 75ml/hr. Continue Levaquin for gram negative UTI. PT to eval. She states she is feeling better today. She denies CP, abd. pain, N/V/D. - Review of Systems Constitutional: Weakness, No Fever, No Chills Eyes: No Symptoms Ears, Nose, & Throat: No Symptoms Respiratory: No Cough, No Short Of Breath Cardiac: No Chest Pain, No Edema, No Syncope Abdominal/Gastrointestinal: No Abdominal Pain, No Nausea, No Vomiting, No Diarrhea Genitourinary Symptoms: No Dysuria Musculoskeletal: No Back Pain, No Neck Pain Skin: Other (hematoma right top side of head), No Rash Neurological: No Dizziness, No Focal Weakness, No Sensory Changes Psychological: No Symptoms Endocrine: No Symptoms Hematologic/Lymphatic: No Symptoms Immunological/Allergic: No Symptoms Objective Exam General Appearance: no apparent distress, alert Neurologic Exam: alert, oriented x 3, cooperative, normal mood/affect, nml cerebellar function, sensation nml, motor weakness, No motor deficits Skin Exam: normal color, warm, dry, pale, other (hematoma right top side of head) Eye Exam: PERRL, EOMI, eyes nml inspection Ears, Nose, Throat Exam: normal ENT inspection, pharynx normal, moist mucous membranes Neck Exam: normal inspection, non-tender, supple, full range of motion Respiratory Exam: normal breath sounds, lungs clear, No respiratory distress Cardiovascular Exam: regular rate/rhythm, normal heart sounds Gastrointestinal/Abdomen Exam: soft, No tenderness, No mass Extremity Exam: normal inspection, normal range of motion Back Exam: normal inspection, normal range of motion, No CVA tenderness, No vertebral tenderness Pelvic Exam: deferred Rectal Exam: deferred Objective Data Vital Signs: Vital Signs - 24 hr Temp Pulse Resp BP BP Pulse Ox 09/29/24 12:00 98.9 F 74 16 135/63 93 L 09/29/24 07:51 98.3 F 74 16 127/60 91 L 09/29/24 04:00 99.3 F 76 18 137/62 96 09/28/24 23:17 99.1 F 82 16 134/61 96 09/28/24 21:18 98 09/28/24 21:12 98.2 F 67 18 124/58 94 L 09/28/24 20:30 156/79 09/28/24 20:00 78 20 158/73 97 09/28/24 19:30 144/71 96 09/28/24 19:00 77 13 147/65 98 09/28/24 18:30 75 20 139/56 96 09/28/24 18:20 74 19 97 09/28/24 18:10 74 16 97 09/28/24 18:06 79 23 94 L 09/28/24 17:53 82 17 139/62 96 09/28/24 16:30 73 16 111/83 95 09/28/24 16:07 76 15 124/60 98 09/28/24 16:05 68 14 151/65 98 09/28/24 16:04 80 19 149/68 96 09/28/24 15:57 78 18 152/66 94 L 09/28/24 15:43 97.5 F 86 20 152/57 96 Pain Assessment - Last Documented Pain Intensity 4 Pain Scale Used 0-10 Pain Scale Intake and Output: Intake & Output 09/27/24 09/28/24 09/29/24 09/30/24 11:59 11:59 11:59 11:59 Intake Total 849 60 Balance 849 60 Weight 54.9 kg Lab Results: Lab Results-Last 24 Hours 09/28/24 09/28/24 09/28/24 Range/Units 16:21 16:38 16:38 WBC 8.8 (3.98-10.04) x10^3/uL RBC 4.71 (3.93-5.22) x10^6/uL Hgb 14.4 (11.2-15.7) g/dL Hct 41.8 (34.1-44.9) % MCV 88.7 (79.4-94.8) fL MCH 30.6 (25.6-32.2) pg MCHC 34.4 (32.2-35.5) g/dL RDW 12.8 (11.7-14.4) % Plt Count 151 L (182-369) x10^3/uL MPV 9.5 (9.4-12.3) fL Gran % 83.8 H (34.0-71.1) % Immature Gran % (Auto) 0.6 H (0.001-0.429) % Nucleat RBC Rel Count 0.0 (0.00-0.2) % Eos # (Auto) 0.25 (0.04-0.36) x10^3/uL Immature Gran # (Auto) 0.05 H (0.001-0.031) x10^3u/L Absolute Lymphs (auto) 0.35 L (1.18-3.74) x10^3/uL Absolute Monos (auto) 0.72 (0.24-0.86) x10^3/uL Absolute Nucleated RBC 0.00 (0.00-0.012) x10^3u/L Lymphocytes % 4.0 L (19.3-51.7) % Monocytes % 8.2 (4.7-12.5) % Eosinophils % 2.9 (0.7-5.8) % Basophils % 0.5 (0.1-1.2) % Absolute Granulocytes 7.36 H (1.56-6.13) x10^3/uL Basophils # 0.04 (0.01-0.08) x10^3/uL Sodium 133 L (135-145) mmol/L Potassium 4.0 (3.5-5.1) mmol/L Chloride 97 L (98-107) mmol/L Carbon Dioxide 21 L (22-30) mmol/L Anion Gap 19.4 H (5-15) MEQ/L BUN 14 (7-17) mg/dL Creatinine 1.27 H (0.52-1.04) mg/dL Estimated GFR 45.8 ML/MIN Glucose 209 H (74-106) mg/dL POC Glucometer (74 to 106) mg/dL Lactic Acid (0.4-2.0) Calcium 8.9 (8.4-10.2) mg/dL Magnesium 1.4 L (1.6-2.3) mg/dL Total Bilirubin 2.40 H (0.2-1.3) mg/dL Direct Bilirubin (0.0-0.4) mg/dL AST 74 H (14-36) U/L ALT 39 H (0-35) U/L Alkaline Phosphatase 103 (38-126) U/L Creatine Kinase (30-135) U/L Troponin I (0.000-0.033) ng/mL Serum Total Protein 7.1 (6.3-8.2) g/dL Albumin 4.2 (3.5-5.0) g/dL Procalcitonin (0.030-0.080) ng/mL Urine Color Dark Yellow A (Yellow) Urine Appearance Turbid A (Clear) Urine pH 5.5 (4.6-8.0) Ur Specific [place] 1.015 (1.005-1.030) Urine Protein 100 A (Negative) Urine Glucose (UA) Negative (Negative) mg/dL Urine Ketones Trace A (Negative) Urine Blood Small A (Negative) Urine Nitrite Negative (Negative) Urine Bilirubin Small A (Negative) Urine Urobilinogen 1.0 A (0.2) mg/dL Ur Leukocyte Esterase Large A (Negative) U Hyaline Cast (Auto) 11-20 (0-2) /LPF Urine Microscopic RBC 3-5 (0-5) /HPF Urine Microscopic WBC >100 A (0-5) /HPF Ur Epithelial Cells Rare (None Seen) /HPF Urine Bacteria Many A (None Seen) /HPF Urine Culture Reflexed YES (NO) Slides for Path Review YES 09/28/24 09/28/24 09/28/24 Range/Units 16:38 17:00 17:09 WBC (3.98-10.04) x10^3/uL RBC (3.93-5.22) x10^6/uL Hgb (11.2-15.7) g/dL Hct (34.1-44.9) % MCV (79.4-94.8) fL MCH (25.6-32.2) pg MCHC (32.2-35.5) g/dL RDW (11.7-14.4) % Plt Count (182-369) x10^3/uL MPV (9.4-12.3) fL Gran % (34.0-71.1) % Immature Gran % (Auto) (0.001-0.429) % Nucleat RBC Rel Count (0.00-0.2) % Eos # (Auto) (0.04-0.36) x10^3/uL Immature Gran # (Auto) (0.001-0.031) x10^3u/L Absolute Lymphs (auto) (1.18-3.74) x10^3/uL Absolute Monos (auto) (0.24-0.86) x10^3/uL Absolute Nucleated RBC (0.00-0.012) x10^3u/L Lymphocytes % (19.3-51.7) % Monocytes % (4.7-12.5) % Eosinophils % (0.7-5.8) % Basophils % (0.1-1.2) % Absolute Granulocytes (1.56-6.13) x10^3/uL Basophils # (0.01-0.08) x10^3/uL Sodium (135-145) mmol/L Potassium (3.5-5.1) mmol/L Chloride (98-107) mmol/L Carbon Dioxide (22-30) mmol/L Anion Gap (5-15) MEQ/L BUN (7-17) mg/dL Creatinine (0.52-1.04) mg/dL Estimated GFR ML/MIN Glucose (74-106) mg/dL POC Glucometer (74 to 106) mg/dL Lactic Acid (0.4-2.0) Calcium (8.4-10.2) mg/dL Magnesium (1.6-2.3) mg/dL Total Bilirubin (0.2-1.3) mg/dL Direct Bilirubin (0.0-0.4) mg/dL AST (14-36) U/L ALT (0-35) U/L Alkaline Phosphatase (38-126) U/L Creatine Kinase 289 H (30-135) U/L Troponin I < 0.012 (0.000-0.033) ng/mL Serum Total Protein (6.3-8.2) g/dL Albumin (3.5-5.0) g/dL Procalcitonin 0.378 H (0.030-0.080) ng/mL Urine Color (Yellow) Urine Appearance (Clear) Urine pH (4.6-8.0) Ur Specific [place] (1.005-1.030) Urine Protein (Negative) Urine Glucose (UA) (Negative) mg/dL Urine Ketones (Negative) Urine Blood (Negative) Urine Nitrite (Negative) Urine Bilirubin (Negative) Urine Urobilinogen (0.2) mg/dL Ur Leukocyte Esterase (Negative) U Hyaline Cast (Auto) (0-2) /LPF Urine Microscopic RBC (0-5) /HPF Urine Microscopic WBC (0-5) /HPF Ur Epithelial Cells (None Seen) /HPF Urine Bacteria (None Seen) /HPF Urine Culture Reflexed (NO) Slides for Path Review 09/28/24 09/28/24 09/28/24 Range/Units 17:28 19:31 21:25 WBC (3.98-10.04) x10^3/uL RBC (3.93-5.22) x10^6/uL Hgb (11.2-15.7) g/dL Hct (34.1-44.9) % MCV (79.4-94.8) fL MCH (25.6-32.2) pg MCHC (32.2-35.5) g/dL RDW (11.7-14.4) % Plt Count (182-369) x10^3/uL MPV (9.4-12.3) fL Gran % (34.0-71.1) % Immature Gran % (Auto) (0.001-0.429) % Nucleat RBC Rel Count (0.00-0.2) % Eos # (Auto) (0.04-0.36) x10^3/uL Immature Gran # (Auto) (0.001-0.031) x10^3u/L Absolute Lymphs (auto) (1.18-3.74) x10^3/uL Absolute Monos (auto) (0.24-0.86) x10^3/uL Absolute Nucleated RBC (0.00-0.012) x10^3u/L Lymphocytes % (19.3-51.7) % Monocytes % (4.7-12.5) % Eosinophils % (0.7-5.8) % Basophils % (0.1-1.2) % Absolute Granulocytes (1.56-6.13) x10^3/uL Basophils # (0.01-0.08) x10^3/uL Sodium (135-145) mmol/L Potassium (3.5-5.1) mmol/L Chloride (98-107) mmol/L Carbon Dioxide (22-30) mmol/L Anion Gap (5-15) MEQ/L BUN (7-17) mg/dL Creatinine (0.52-1.04) mg/dL Estimated GFR ML/MIN Glucose (74-106) mg/dL POC Glucometer (74 to 106) mg/dL Lactic Acid 2.1 H 2.6 H (0.4-2.0) Calcium (8.4-10.2) mg/dL Magnesium (1.6-2.3) mg/dL Total Bilirubin (0.2-1.3) mg/dL Direct Bilirubin (0.0-0.4) mg/dL AST (14-36) U/L ALT (0-35) U/L Alkaline Phosphatase (38-126) U/L Creatine Kinase (30-135) U/L Troponin I 0.013 (0.000-0.033) ng/mL Serum Total Protein (6.3-8.2) g/dL Albumin (3.5-5.0) g/dL Procalcitonin (0.030-0.080) ng/mL Urine Color (Yellow) Urine Appearance (Clear) Urine pH (4.6-8.0) Ur Specific [place] (1.005-1.030) Urine Protein (Negative) Urine Glucose (UA) (Negative) mg/dL Urine Ketones (Negative) Urine Blood (Negative) Urine Nitrite (Negative) Urine Bilirubin (Negative) Urine Urobilinogen (0.2) mg/dL Ur Leukocyte Esterase (Negative) U Hyaline Cast (Auto) (0-2) /LPF Urine Microscopic RBC (0-5) /HPF Urine Microscopic WBC (0-5) /HPF Ur Epithelial Cells (None Seen) /HPF Urine Bacteria (None Seen) /HPF Urine Culture Reflexed (NO) Slides for Path Review 09/28/24 09/29/24 09/29/24 Range/Units 22:08 00:30 05:08 WBC 6.4 (3.98-10.04) x10^3/uL RBC 4.31 (3.93-5.22) x10^6/uL Hgb 13.0 (11.2-15.7) g/dL Hct 38.4 (34.1-44.9) % MCV 89.1 (79.4-94.8) fL MCH 30.2 (25.6-32.2) pg MCHC 33.9 (32.2-35.5) g/dL RDW 12.7 (11.7-14.4) % Plt Count 138 L (182-369) x10^3/uL MPV 9.9 (9.4-12.3) fL Gran % (34.0-71.1) % Immature Gran % (Auto) (0.001-0.429) % Nucleat RBC Rel Count (0.00-0.2) % Eos # (Auto) (0.04-0.36) x10^3/uL Immature Gran # (Auto) (0.001-0.031) x10^3u/L Absolute Lymphs (auto) (1.18-3.74) x10^3/uL Absolute Monos (auto) (0.24-0.86) x10^3/uL Absolute Nucleated RBC (0.00-0.012) x10^3u/L Lymphocytes % (19.3-51.7) % Monocytes % (4.7-12.5) % Eosinophils % (0.7-5.8) % Basophils % (0.1-1.2) % Absolute Granulocytes (1.56-6.13) x10^3/uL Basophils # (0.01-0.08) x10^3/uL Sodium (135-145) mmol/L Potassium (3.5-5.1) mmol/L Chloride (98-107) mmol/L Carbon Dioxide (22-30) mmol/L Anion Gap (5-15) MEQ/L BUN (7-17) mg/dL Creatinine (0.52-1.04) mg/dL Estimated GFR ML/MIN Glucose (74-106) mg/dL POC Glucometer 117 H (74 to 106) mg/dL Lactic Acid (0.4-2.0) Calcium (8.4-10.2) mg/dL Magnesium (1.6-2.3) mg/dL Total Bilirubin (0.2-1.3) mg/dL Direct Bilirubin (0.0-0.4) mg/dL AST (14-36) U/L ALT (0-35) U/L Alkaline Phosphatase (38-126) U/L Creatine Kinase (30-135) U/L Troponin I 0.013 (0.000-0.033) ng/mL Serum Total Protein (6.3-8.2) g/dL Albumin (3.5-5.0) g/dL Procalcitonin (0.030-0.080) ng/mL Urine Color (Yellow) Urine Appearance (Clear) Urine pH (4.6-8.0) Ur Specific [place] (1.005-1.030) Urine Protein (Negative) Urine Glucose (UA) (Negative) mg/dL Urine Ketones (Negative) Urine Blood (Negative) Urine Nitrite (Negative) Urine Bilirubin (Negative) Urine Urobilinogen (0.2) mg/dL Ur Leukocyte Esterase (Negative) U Hyaline Cast (Auto) (0-2) /LPF Urine Microscopic RBC (0-5) /HPF Urine Microscopic WBC (0-5) /HPF Ur Epithelial Cells (None Seen) /HPF Urine Bacteria (None Seen) /HPF Urine Culture Reflexed (NO) Slides for Path Review YES 09/29/24 09/29/24 09/29/24 Range/Units 05:08 05:08 07:37 WBC (3.98-10.04) x10^3/uL RBC (3.93-5.22) x10^6/uL Hgb (11.2-15.7) g/dL Hct (34.1-44.9) % MCV (79.4-94.8) fL MCH (25.6-32.2) pg MCHC (32.2-35.5) g/dL RDW (11.7-14.4) % Plt Count (182-369) x10^3/uL MPV (9.4-12.3) fL Gran % (34.0-71.1) % Immature Gran % (Auto) (0.001-0.429) % Nucleat RBC Rel Count (0.00-0.2) % Eos # (Auto) (0.04-0.36) x10^3/uL Immature Gran # (Auto) (0.001-0.031) x10^3u/L Absolute Lymphs (auto) (1.18-3.74) x10^3/uL Absolute Monos (auto) (0.24-0.86) x10^3/uL Absolute Nucleated RBC (0.00-0.012) x10^3u/L Lymphocytes % (19.3-51.7) % Monocytes % (4.7-12.5) % Eosinophils % (0.7-5.8) % Basophils % (0.1-1.2) % Absolute Granulocytes (1.56-6.13) x10^3/uL Basophils # (0.01-0.08) x10^3/uL Sodium 135 (135-145) mmol/L Potassium 3.9 (3.5-5.1) mmol/L Chloride 102 (98-107) mmol/L Carbon Dioxide 19 L (22-30) mmol/L Anion Gap 18.2 H (5-15) MEQ/L BUN 12 (7-17) mg/dL Creatinine 1.03 (0.52-1.04) mg/dL Estimated GFR 58.9 ML/MIN Glucose 146 H (74-106) mg/dL POC Glucometer 169 H (74 to 106) mg/dL Lactic Acid (0.4-2.0) Calcium 8.6 (8.4-10.2) mg/dL Magnesium (1.6-2.3) mg/dL Total Bilirubin 1.70 H (0.2-1.3) mg/dL Direct Bilirubin 0.6 H (0.0-0.4) mg/dL AST 66 H (14-36) U/L ALT 31 (0-35) U/L Alkaline Phosphatase 98 (38-126) U/L Creatine Kinase 1287 H (30-135) U/L Troponin I (0.000-0.033) ng/mL Serum Total Protein 6.6 (6.3-8.2) g/dL Albumin 3.8 (3.5-5.0) g/dL Procalcitonin (0.030-0.080) ng/mL Urine Color (Yellow) Urine Appearance (Clear) Urine pH (4.6-8.0) Ur Specific [place] (1.005-1.030) Urine Protein (Negative) Urine Glucose (UA) (Negative) mg/dL Urine Ketones (Negative) Urine Blood (Negative) Urine Nitrite (Negative) Urine Bilirubin (Negative) Urine Urobilinogen (0.2) mg/dL Ur Leukocyte Esterase (Negative) U Hyaline Cast (Auto) (0-2) /LPF Urine Microscopic RBC (0-5) /HPF Urine Microscopic WBC (0-5) /HPF Ur Epithelial Cells (None Seen) /HPF Urine Bacteria (None Seen) /HPF Urine Culture Reflexed (NO) Slides for Path Review 09/29/24 09/29/24 Range/Units 08:00 11:30 WBC (3.98-10.04) x10^3/uL RBC (3.93-5.22) x10^6/uL Hgb (11.2-15.7) g/dL Hct (34.1-44.9) % MCV (79.4-94.8) fL MCH (25.6-32.2) pg MCHC (32.2-35.5) g/dL RDW (11.7-14.4) % Plt Count (182-369) x10^3/uL MPV (9.4-12.3) fL Gran % (34.0-71.1) % Immature Gran % (Auto) (0.001-0.429) % Nucleat RBC Rel Count (0.00-0.2) % Eos # (Auto) (0.04-0.36) x10^3/uL Immature Gran # (Auto) (0.001-0.031) x10^3u/L Absolute Lymphs (auto) (1.18-3.74) x10^3/uL Absolute Monos (auto) (0.24-0.86) x10^3/uL Absolute Nucleated RBC (0.00-0.012) x10^3u/L Lymphocytes % (19.3-51.7) % Monocytes % (4.7-12.5) % Eosinophils % (0.7-5.8) % Basophils % (0.1-1.2) % Absolute Granulocytes (1.56-6.13) x10^3/uL Basophils # (0.01-0.08) x10^3/uL Sodium (135-145) mmol/L Potassium (3.5-5.1) mmol/L Chloride (98-107) mmol/L Carbon Dioxide (22-30) mmol/L Anion Gap (5-15) MEQ/L BUN (7-17) mg/dL Creatinine (0.52-1.04) mg/dL Estimated GFR ML/MIN Glucose (74-106) mg/dL POC Glucometer 224 H (74 to 106) mg/dL Lactic Acid 1.1 (0.4-2.0) Calcium (8.4-10.2) mg/dL Magnesium (1.6-2.3) mg/dL Total Bilirubin (0.2-1.3) mg/dL Direct Bilirubin (0.0-0.4) mg/dL AST (14-36) U/L ALT (0-35) U/L Alkaline Phosphatase (38-126) U/L Creatine Kinase (30-135) U/L Troponin I (0.000-0.033) ng/mL Serum Total Protein (6.3-8.2) g/dL Albumin (3.5-5.0) g/dL Procalcitonin (0.030-0.080) ng/mL Urine Color (Yellow) Urine Appearance (Clear) Urine pH (4.6-8.0) Ur Specific [place] (1.005-1.030) Urine Protein (Negative) Urine Glucose (UA) (Negative) mg/dL Urine Ketones (Negative) Urine Blood (Negative) Urine Nitrite (Negative) Urine Bilirubin (Negative) Urine Urobilinogen (0.2) mg/dL Ur Leukocyte Esterase (Negative) U Hyaline Cast (Auto) (0-2) /LPF Urine Microscopic RBC (0-5) /HPF Urine Microscopic WBC (0-5) /HPF Ur Epithelial Cells (None Seen) /HPF Urine Bacteria (None Seen) /HPF Urine Culture Reflexed (NO) Slides for Path Review Radiology Exams: Radiology Procedures Category Date Time Status CERVICAL SPINE WO CONTRAST [CT] Stat Exams 09/28/24 16:15 Completed CHEST 1 VIEW (PORTABLE) Stat Exams 09/28/24 16:16 Completed HEAD WITHOUT CONTRAST [CT] Stat Exams 09/28/24 16:15 Completed Medications: Medications Generic Name Dose Route Start Last Admin Trade Name Freq PRN Reason Stop Dose Admin Acetaminophen 650 mg 09/28/24 20:58 09/29/24 10:43 Acetaminophen 325 Mg Tablet PO 10/28/24 20:57 650 mg Q6H PRN PRN Administration PAIN AND/OR FEVER Citalopram Hydrobromide 20 mg 09/29/24 10:00 09/29/24 10:36 Citalopram Hydrobromide 20 Mg Tablet PO 10/29/24 09:59 20 mg DAILY ADOLFO Administration Enoxaparin Sodium 40 mg 09/29/24 10:00 09/29/24 10:37 Enoxaparin Sodium 40 Mg/0.4 Ml Syringe SQ 10/29/24 09:59 40 mg DAILY ADOLFO Administration Sodium Chloride 1,000 mls @ 75 mls/hr 09/28/24 20:58 09/28/24 21:48 Sodium Chloride 0.9% 1000 Ml IV 10/28/24 20:57 50 mls/hr .[id number] ADOLFO Administration Levofloxacin/Dextrose 250 mg in 50 mls @ 100 mls/hr 09/29/24 10:00 09/29/24 10:38 Levaquin 250mg/50ml D5w IV 10/29/24 09:59 100 mls/hr [id number] ADOLFO Administration Insulin Human Lispro 0 unit 09/28/24 20:58 Insulin Lispro 1 Unit SQ 10/28/24 20:57 UD PRN HYPERGLYCEMIA Levothyroxine Sodium 25 mcg 09/29/24 10:00 09/29/24 10:37 Levothyroxine Sodium 25 Mcg Tablet PO 10/29/24 09:59 25 mcg DAILY ADOLFO Administration Lisinopril 5 mg 09/29/24 10:00 09/29/24 10:36 Lisinopril 5 Mg Tablet PO 10/29/24 09:59 5 mg DAILY ADOLFO Administration Pantoprazole Sodium 40 mg 09/29/24 10:00 09/29/24 10:36 Protonix (Pantoprazole) 40 Mg Tablet PO 10/29/24 09:59 40 mg DAILY ADOLFO Administration Simvastatin 20 mg 09/29/24 10:00 09/29/24 10:37 Simvastatin 20 Mg Tablet PO 10/29/24 09:59 20 mg DAILY ADOLFO Administration Discontinued Medications Generic Name Dose Route Start Last Admin Trade Name Freq PRN Reason Stop Dose Admin Sodium Chloride 500 mls @ 500 mls/hr 09/28/24 16:16 09/28/24 17:23 Sodium Chloride 0.9% 500 Ml IV 09/28/24 17:15 Infused .Q1H ONE Infusion Sodium Chloride Confirm 09/28/24 16:18 Sodium Chloride 0.9% 500 Ml Administered 09/28/24 16:19 Dose 500 mls @ ud IV .STK-MED ONE Levofloxacin/Dextrose 500 mg in 100 mls @ 100 mls/hr 09/28/24 17:21 09/28/24 19:56 Levofloxacin 500mg/100ml D5w IV 09/28/24 18:20 Infused STAT STA Infusion Magnesium Sulfate/Water 2 gm in 50 mls @ 100 mls/hr 09/28/24 17:22 09/28/24 18:03 Magnesium Sulf 2 G/50 Ml Bag IV 09/28/24 17:51 Infused ONCE ONE Infusion Magnesium Sulfate/Water Confirm 09/28/24 17:24 Magnesium Sulf 2 G/50 Ml Bag Administered 09/28/24 17:25 Dose 2 gm in 50 mls @ ud IV .STK-MED ONE Levofloxacin/Dextrose Confirm 09/28/24 18:09 Levofloxacin 500mg/100ml D5w Administered 09/28/24 18:10 Dose 500 mg in 100 mls @ ud IV .STK-MED ONE Non-Formulary Medication 2.5 mg 09/29/24 10:00 Lisinopril [Zestril] PO 10/29/24 09:59 DAILY ADOLFO Assessment/Plan (1) Acute cystitis Current Visit: Yes Status: Acute Assessment & Plan: - With pyuria on UA, causing generalized weakness and falls. - Start Levaquin (allergy to penicillin and cephalexin) - Follow up urine culture - UC gram negative Code(s): N30.00 - ACUTE CYSTITIS WITHOUT HEMATURIA (2) Rhabdomyolysis Current Visit: Yes Status: Acute Assessment & Plan: - CK 1287 - NS @ 75 ml/hr - 2:2 fall Code(s): M62.82 - RHABDOMYOLYSIS (3) Fall Current Visit: Yes Status: Acute Assessment & Plan: - Ground level at home - PT eval - With injury to head - Radiology results reviewed - Fall 2:2 UTI/Cystitis Code(s): W19.XXXA - UNSPECIFIED FALL, INITIAL ENCOUNTER (4) ALESSIA (acute kidney injury) Current Visit: Yes Status: Acute Assessment & Plan: - Likely secondary to poor p.o. intake and related to her UTI, with perhaps some contribution from dehydration after gastroenteritis last week. Baseline creatinine appears to be around 1, currently up to 1.3. - Given NS 500 cc bolus in the ED - Start continuous NS at 50 milliliters per hour - increased to 75ml/hr - BMP reviewed - ALESSIA resolved Code(s): N17.9 - ACUTE KIDNEY FAILURE, UNSPECIFIED (5) Elevated bilirubin Current Visit: Yes Status: Acute Assessment & Plan: - No abdominal pain, no jaundice, no history of liver disease. - Repeat LFTs in the morning, including direct bilirubin - AST 66, ALT 31- improved, total bili 1.70, and direct bili 0.6- improved - IVF Code(s): R17 - UNSPECIFIED JAUNDICE (6) Thrombocytopenia Current Visit: Yes Status: Chronic Assessment & Plan: - Appears chronic per old labs - Will need OP f/u with hematology - Plt 138- trend (7) Type II diabetes mellitus Current Visit: Yes Status: Chronic Assessment & Plan: -only on metformin at home. - Last hemoglobin A1c was 6.8 last month- controlled - Hold home metformin due to hospitalization and ALESSIA - Start low-dose sliding scale insulin - Diabetic diet (8) HTN (hypertension) Current Visit: Yes Status: Chronic Code(s): I10 - ESSENTIAL (PRIMARY) HY PERTENSION (9) Hypothyroidism Current Visit: Yes Status: Chronic Code(s): E03.9 - HYPOTHYROIDISM, UNSPEC IFIED (10) Depression Current Visit: Yes Status: Chronic Assessment & Plan: ## Hypertension - Blood pressure generally controlled. - Resume home lisinopril 5 mg daily (low enough dose that should not be affecting her renal function as above, which should be improving with fluids in any case) ## hypothyroidism - Continue home levothyroxine 25 mcg daily ## Depression - Continue home Celexa - Repeat EKG in the morning reviewed Code status: DNR Prophylaxis: Lovenox 40 daily Diet: Diabetic Dispo: 1-2 days Next of KIN: Feliciano Hernández - sibling [phone] Code(s): F32.A - DEPRESSION, UNSPECIFIED
[2024-09-29] MEDS: HUMALOG SQ PRN (13:29)
[2024-09-29 14:56] LABS: ANION GAP 15.7 MEQ/L (5-15); Calcium 8.6 mg/dL (8.4-10.2); Creatinine 1 0.98 mg/dL (0.52-1.04); EST GLOMERULAR FILTRATION RATE 62.5 ML/MIN; Potassium 3.9 mmol/L (3.5-5.1)
[2024-09-29] MEDS ORDERED: Levofloxacin 500MG/100ML D5W 500 MG/100 ML BAG IV SCH (16:00)
[2024-09-30 04:33] LABS: Hematocrit 38.1 % (34.1-44.9); Hemoglobin 12.9 g/dL (11.2-15.7); Mean Cell Volume 90.1 fL (79.4-94.8); Mean Corpuscular Hemoglobin 30.5 pg (25.6-32.2); Mean Corpuscular Hgb Concent. 33.9 g/dL (32.2-35.5); Mean Platelet Volume 9.8 fL (9.4-12.3); Platelet Count 143 x10^3/uL (182-369); Red Blood Count 4.23 x10^6/uL (3.93-5.22); Red Cell Distribution Width 12.8 % (11.7-14.4); White Blood Count 5.1 x10^3/uL (3.98-10.04)
[2024-09-30 04:51] LABS: ALBUMIN 3.5 g/dL (3.5-5.0); ANION GAP 15.8 MEQ/L (5-15); BILIRUBIN,TOTAL 1.2 mg/dL (0.2-1.3); Calcium 8.5 mg/dL (8.4-10.2); Creatinine 1 0.98 mg/dL (0.52-1.04); EST GLOMERULAR FILTRATION RATE 62.5 ML/MIN; Potassium 3.9 mmol/L (3.5-5.1); Total Protein 6.3 g/dL (6.3-8.2)
--- NOTE | 2024-09-30 09:27 | PCM.NOTE ---
Date and Time: 09/30/24917 Subjective Assessment: 09/29/24 Ms. Hernández is a 68-year-old woman with a history of DM2, HTN, depression, and hypothyroidism. She presented to the ER on 09/28/24 after a fall. The patient notes that she has been feeling a little bit weaker for the past few days, with some lightheadedness on standing. Denies any vertigo or nausea. However, yesterday, she felt wobbly when she walked into the bathroom, and fell, hitting her right hip and eventually her head. Denies any loss of consciousness. However, she was unable to get up despite multiple attempts. She was eventually able to crawl to the bedroom, and so denies laying in any one spot for a prolonged period of time. Eventually she was able to call for help. Currently she denies any focal numbness or weakness. She denies any dysuria, but notes that she has increased urinary frequency for the past six weeks. Thinks she has been having good oral intake, but notes she has some dry mouth. She has some chest pain that is reproducible with palpation that she feels is a muscle strain after her fall. She also notes that she had the stomach flu last week, but thought she had fully recovered. CK 1286 today and IVF increased to 75ml/hr. Continue Levaquin for gram negative UTI. PT to eval. She states she is feeling better today. She denies CP, abd. pain, N/V/D. 09/30/24 Pt resting in bed. PT was able to eval pt yesterday and encouraged her to use a walker at home and she is refusing. She tells me today she is able to walk fine. CK continues to rise and today 1469 despite IV hydration. Pt admits to she did not eat yesterday as she just does not feel like it. She has been drinking fluids only. She denies CP, SOB, abd pain, N/V/D. Urine + for E-coli and pansensitive, continue Levaquin. - Review of Systems Constitutional: No Fever, No Chills Eyes: No Symptoms Ears, Nose, & Throat: No Symptoms Respiratory: No Cough, No Short Of Breath Cardiac: No Chest Pain, No Edema, No Syncope Abdominal/Gastrointestinal: No Abdominal Pain, No Nausea, No Vomiting, No Diarrhea Genitourinary Symptoms: Other (no appetite), No Dysuria Musculoskeletal: No Back Pain, No Neck Pain Skin: No Rash Neurological: No Dizziness, No Focal Weakness, No Sensory Changes Psychological: No Symptoms Endocrine: No Symptoms Hematologic/Lymphatic: No Symptoms Immunological/Allergic: No Symptoms Objective Exam General Appearance: no apparent distress, alert Neurologic Exam: alert, oriented x 3, cooperative, normal mood/affect, nml cerebellar function, sensation nml, No motor deficits Skin Exam: warm, dry, pale Eye Exam: PERRL, EOMI, eyes nml inspection Ears, Nose, Throat Exam: normal ENT inspection, pharynx normal, moist mucous membranes Neck Exam: normal inspection, non-tender, supple, full range of motion Respiratory Exam: normal breath sounds, lungs clear, No respiratory distress Cardiovascular Exam: regular rate/rhythm, normal heart sounds Gastrointestinal/Abdomen Exam: soft, No tenderness, No mass Extremity Exam: normal inspection, normal range of motion Back Exam: normal inspection, normal range of motion, No CVA tenderness, No vertebral tenderness Pelvic Exam: deferred Rectal Exam: deferred Objective Data Vital Signs: Vital Signs - 24 hr Temp Pulse Resp BP Pulse Ox 09/30/24 07:54 98.0 F 64 18 122/58 94 L 09/30/24 04:00 98.7 F 73 16 143/65 97 09/30/24 00:00 97.3 F 70 18 131/62 95 09/29/24 20:00 98.3 F 70 20 118/66 95 09/29/24 16:00 98 F 65 17 129/61 93 L 09/29/24 12:00 98.9 F 74 16 135/63 93 L Pain Assessment - Last Documented Pain Intensity 0 Pain Scale Used 0-10 Pain Scale Intake and Output: Intake & Output 09/27/24 09/28/24 09/29/24 09/30/24 11:59 11:59 11:59 11:59 Intake Total 849 1760 Output Total 800 Balance 849 960 Weight 54.9 kg Lab Results: Lab Results-Last 24 Hours 09/29/24 09/29/24 09/29/24 Range/Units 11:30 14:35 16:20 WBC (3.98-10.04) x10^3/uL RBC (3.93-5.22) x10^6/uL Hgb (11.2-15.7) g/dL Hct (34.1-44.9) % MCV (79.4-94.8) fL MCH (25.6-32.2) pg MCHC (32.2-35.5) g/dL RDW (11.7-14.4) % Plt Count (182-369) x10^3/uL MPV (9.4-12.3) fL Sodium 137 (135-145) mmol/L Potassium 3.9 (3.5-5.1) mmol/L Chloride 104 (98-107) mmol/L Carbon Dioxide 21 L (22-30) mmol/L Anion Gap 15.7 H (5-15) MEQ/L BUN 10 (7-17) mg/dL Creatinine 0.98 (0.52-1.04) mg/dL Estimated GFR 62.5 ML/MIN Glucose 126 H (74-106) mg/dL POC Glucometer 224 H 101 (74 to 106) mg/dL Calcium 8.6 (8.4-10.2) mg/dL Magnesium (1.6-2.3) mg/dL Total Bilirubin (0.2-1.3) mg/dL AST (14-36) U/L ALT (0-35) U/L Alkaline Phosphatase (38-126) U/L Creatine Kinase (30-135) U/L Serum Total Protein (6.3-8.2) g/dL Albumin (3.5-5.0) g/dL 09/29/24 09/30/24 09/30/24 Range/Units 21:53 04:27 04:27 WBC 5.1 (3.98-10.04) x10^3/uL RBC 4.23 (3.93-5.22) x10^6/uL Hgb 12.9 (11.2-15.7) g/dL Hct 38.1 (34.1-44.9) % MCV 90.1 (79.4-94.8) fL MCH 30.5 (25.6-32.2) pg MCHC 33.9 (32.2-35.5) g/dL RDW 12.8 (11.7-14.4) % Plt Count 143 L (182-369) x10^3/uL MPV 9.8 (9.4-12.3) fL Sodium 136 (135-145) mmol/L Potassium 3.9 (3.5-5.1) mmol/L Chloride 104 (98-107) mmol/L Carbon Dioxide 20 L (22-30) mmol/L Anion Gap 15.8 H (5-15) MEQ/L BUN 9 (7-17) mg/dL Creatinine 0.98 (0.52-1.04) mg/dL Estimated GFR 62.5 ML/MIN Glucose 147 H (74-106) mg/dL POC Glucometer 133 H (74 to 106) mg/dL Calcium 8.5 (8.4-10.2) mg/dL Magnesium (1.6-2.3) mg/dL Total Bilirubin 1.20 (0.2-1.3) mg/dL AST 79 H (14-36) U/L ALT 31 (0-35) U/L Alkaline Phosphatase 90 (38-126) U/L Creatine Kinase 1469 H (30-135) U/L Serum Total Protein 6.3 (6.3-8.2) g/dL Albumin 3.5 (3.5-5.0) g/dL 09/30/24 09/30/24 Range/Units 04:27 07:06 WBC (3.98-10.04) x10^3/uL RBC (3.93-5.22) x10^6/uL Hgb (11.2-15.7) g/dL Hct (34.1-44.9) % MCV (79.4-94.8) fL MCH (25.6-32.2) pg MCHC (32.2-35.5) g/dL RDW (11.7-14.4) % Plt Count (182-369) x10^3/uL MPV (9.4-12.3) fL Sodium (135-145) mmol/L Potassium (3.5-5.1) mmol/L Chloride (98-107) mmol/L Carbon Dioxide (22-30) mmol/L Anion Gap (5-15) MEQ/L BUN (7-17) mg/dL Creatinine (0.52-1.04) mg/dL Estimated GFR ML/MIN Glucose (74-106) mg/dL POC Glucometer 148 H (74 to 106) mg/dL Calcium (8.4-10.2) mg/dL Magnesium 2.0 (1.6-2.3) mg/dL Total Bilirubin (0.2-1.3) mg/dL AST (14-36) U/L ALT (0-35) U/L Alkaline Phosphatase (38-126) U/L Creatine Kinase (30-135) U/L Serum Total Protein (6.3-8.2) g/dL Albumin (3.5-5.0) g/dL Radiology Exams: Radiology Procedures Category Date Time Status CERVICAL SPINE WO CONTRAST [CT] Stat Exams 09/28/24 16:15 Completed CHEST 1 VIEW (PORTABLE) Stat Exams 09/28/24 16:16 Completed HEAD WITHOUT CONTRAST [CT] Stat Exams 09/28/24 16:15 Completed Medications: Medications Generic Name Dose Route Start Last Admin Trade Name Freq PRN Reason Stop Dose Admin Acetaminophen 650 mg 09/28/24 20:58 09/29/24 10:43 Acetaminophen 325 Mg Tablet PO 10/28/24 20:57 650 mg Q6H PRN PRN Administration PAIN AND/OR FEVER Citalopram Hydrobromide 20 mg 09/29/24 10:00 09/29/24 10:36 Citalopram Hydrobromide 20 Mg Tablet PO 10/29/24 09:59 20 mg DAILY ADOLFO Administration Enoxaparin Sodium 40 mg 09/29/24 10:00 09/29/24 10:37 Enoxaparin Sodium 40 Mg/0.4 Ml Syringe SQ 10/29/24 09:59 40 mg DAILY ADOLFO Administration Sodium Chloride 1,000 mls @ 75 mls/hr 09/28/24 20:58 09/30/24 06:20 Sodium Chloride 0.9% 1000 Ml IV 10/28/24 20:57 75 mls/hr .[id number] ADOLFO Administration Levofloxacin/Dextrose 250 mg in 50 mls @ 100 mls/hr 09/29/24 10:00 09/29/24 10:38 Levaquin 250mg/50ml D5w IV 10/29/24 09:59 100 mls/hr Q24H10 ADOLFO Administration Insulin Human Lispro 0 unit 09/28/24 20:58 09/29/24 13:29 Insulin Lispro 1 Unit SQ 10/28/24 20:57 2 unit UD PRN Administration HYPERGLYCEMIA Levothyroxine Sodium 25 mcg 09/29/24 10:00 09/29/24 10:37 Levothyroxine Sodium 25 Mcg Tablet PO 10/29/24 09:59 25 mcg DAILY ADOLFO Administration Lisinopril 5 mg 09/29/24 10:00 09/29/24 10:36 Lisinopril 5 Mg Tablet PO 10/29/24 09:59 5 mg DAILY ADOLFO Administration Pantoprazole Sodium 40 mg 09/29/24 10:00 09/29/24 10:36 Protonix (Pantoprazole) 40 Mg Tablet PO 10/29/24 09:59 40 mg DAILY ADOLFO Administration Simvastatin 20 mg 09/29/24 10:00 09/29/24 10:37 Simvastatin 20 Mg Tablet PO 10/29/24 09:59 20 mg DAILY ADOLFO Administration Discontinued Medications Generic Name Dose Route Start Last Admin Trade Name Freq PRN Reason Stop Dose Admin Sodium Chloride 500 mls @ 500 mls/hr 09/28/24 16:16 09/28/24 17:23 Sodium Chloride 0.9% 500 Ml IV 09/28/24 17:15 Infused .Q1H ONE Infusion Sodium Chloride Confirm 09/28/24 16:18 Sodium Chloride 0.9% 500 Ml Administered 09/28/24 16:19 Dose 500 mls @ ud IV .STK-MED ONE Levofloxacin/Dextrose 500 mg in 100 mls @ 100 mls/hr 09/28/24 17:21 09/28/24 19:56 Levofloxacin 500mg/100ml D5w IV 09/28/24 18:20 Infused STAT STA Infusion Magnesium Sulfate/Water 2 gm in 50 mls @ 100 mls/hr 09/28/24 17:22 09/28/24 18:03 Magnesium Sulf 2 G/50 Ml Bag IV 09/28/24 17:51 Infused ONCE ONE Infusion Magnesium Sulfate/Water Confirm 09/28/24 17:24 Magnesium Sulf 2 G/50 Ml Bag Administered 09/28/24 17:25 Dose 2 gm in 50 mls @ ud IV .STK-MED ONE Levofloxacin/Dextrose Confirm 09/28/24 18:09 Levofloxacin 500mg/100ml D5w Administered 09/28/24 18:10 Dose 500 mg in 100 mls @ ud IV .STK-MED ONE Non-Formulary Medication 2.5 mg 09/29/24 10:00 Lisinopril [Zestril] PO 10/29/24 09:59 DAILY ADOLFO Assessment/Plan (1) Acute cystitis Current Visit: Yes Status: Acute Code(s): N30.00 - ACUTE CYSTITIS WITHOUT HEMATURIA (2) Rhabdomyolysis Current Visit: Yes Status: Acute Code(s): M62.82 - RHABDOMYOLYSIS (3) Fall Current Visit: Yes Status: Acute Code(s): W19.XXXA - UNSPECIFIED FALL, INITIAL ENCOUNTER (4) ALESSIA (acute kidney injury) Current Visit: Yes Status: Acute Code(s): N17.9 - ACUTE KIDNEY FAILURE, UNSPECIFIED (5) Elevated bilirubin Current Visit: Yes Status: Acute Code(s): R17 - UNSPECIFIED JAUNDICE (6) Thrombocytopenia Current Visit: Yes Status: Chronic (7) Type II diabetes mellitus Current Visit: Yes Status: Chronic (8) HTN (hypertension) Current Visit: Yes Status: Chronic Code(s): I10 - ESSENTIAL (PRIMARY) HYPERTENSION (9) Hypothyroidism Current Visit: Yes Status: Chronic Code(s): E03.9 - HYPOTHYROIDISM, UNSPECIFIED (10) Depression Current Visit: Yes Status: Chronic Assessment & Plan: (1) Acute cystitis Current Visit: Yes Status: Acute Assessment & Plan: - With pyuria on UA, causing generalized weakness and falls. - Start Levaquin (allergy to penicillin and cephalexin) - Follow up urine culture - UC gram negative 09/30 - UC + e-coli, pansensitive - Continue Levaquin - CBC, CMP reviewed Code(s): N30.00 - ACUTE CYSTITIS WITHOUT HEMATURIA (2) Rhabdomyolysis Current Visit: Yes Status: Acute Assessment & Plan: - CK 1287 - NS @ 75 ml/hr - 2:2 fall 09/30 - CK 1469 - Continue IVF Code(s): M62.82 - RHABDOMYOLYSIS (3) Fall Current Visit: Yes Status: Acute Assessment & Plan: - Ground level at home - PT eval - With injury to head - Radiology results reviewed - Fall 2:2 UTI/Cystitis - Encouraged pt to use walker Code(s): W19.XXXA - UNSPECIFIED FALL, INITIAL ENCOUNTER (4) ALESSIA (acute kidney injury) Current Visit: Yes Status: Acute Assessment & Plan: - Likely secondary to poor p.o. intake and related to her UTI, with perhaps some contribution from dehydration after gastroenteritis last week. Baseline creatinine appears to be around 1, currently up to 1.3. - Given NS 500 cc bolus in the ED - Start continuous NS at 50 milliliters per hour - increased to 75ml/hr - BMP reviewed - ALESSIA resolved Code(s): N17.9 - ACUTE KIDNEY FAILURE, UNSPECIFIED (5) Elevated bilirubin Current Visit: Yes Status: Acute Assessment & Plan: - No abdominal pain, no jaundice, no history of liver disease. - Repeat LFTs in the morning, including direct bilirubin - AST 66, ALT 31- improved, total bili 1.70, and direct bili 0.6- improved - IVF 09/30 - resolved Code(s): R17 - UNSPECIFIED JAUNDICE (6) Thrombocytopenia Current Visit: Yes Status: Chronic Assessment & Plan: - Appears chronic per old labs - Will need OP f/u with hematology - Plt 138- trend 09/30 - PLT 143- trend (7) Type II diabetes mellitus Current Visit: Yes Status: Chronic Assessment & Plan: -only on metformin at home. - Last hemoglobin A1c was 6.8 last month- controlled - Hold home metformin due to hospitalization and ALESSIA - Start low-dose sliding scale insulin - Diabetic diet 8. Hypertension - Blood pressure generally controlled. - Resume home lisinopril 5 mg daily (low enough dose that should not be affecting her renal function as above, which should be improving with fluids in any case) 9. Hypothyroidism - Continue home levothyroxine 25 mcg daily 10. Depression - Continue home Celexa - Repeat EKG in the morning reviewed Code(s): F32.A - DEPRESSION, UNSPECIFIED (11) Cardiomegaly Current Visit: Yes Status: Acute Assessment & Plan: - Mild as seen on CXR - No edema or SOB - Denies CP - EKG reviewed - Tele - Will need OP f/u - Trops x3 negative Code status: DNR Prophylaxis: Lovenox 40 daily Diet: Diabetic Dispo: 1-2 days Next of KIN: Feliciano Hernández - sibling [phone] Code(s): I51.7 - CARDIOMEGALY
[2024-10-01 05:37] LABS: Hematocrit 37.2 % (34.1-44.9); Hemoglobin 12.5 g/dL (11.2-15.7); Mean Cell Volume 90.5 fL (79.4-94.8); Mean Corpuscular Hemoglobin 30.4 pg (25.6-32.2); Mean Corpuscular Hgb Concent. 33.6 g/dL (32.2-35.5); Mean Platelet Volume 10.4 fL (9.4-12.3); Platelet Count 163 x10^3/uL (182-369); Red Blood Count 4.11 x10^6/uL (3.93-5.22); Red Cell Distribution Width 13.2 % (11.7-14.4); White Blood Count 4.1 x10^3/uL (3.98-10.04)
[2024-10-01 06:02] LABS: ALBUMIN 3.4 g/dL (3.5-5.0); ANION GAP 13.8 MEQ/L (5-15); BILIRUBIN,TOTAL 0.7 mg/dL (0.2-1.3); Calcium 8.5 mg/dL (8.4-10.2); Creatinine 1 0.95 mg/dL (0.52-1.04); EST GLOMERULAR FILTRATION RATE 64.9 ML/MIN; Potassium 3.6 mmol/L (3.5-5.1)
--- NOTE | 2024-10-01 10:43 | PCM.DS ---
Discharge Summary Date of Admission: 09/29/24 05:08 Date of Discharge: 10/01/24 Admitting Physician: YARA MAHAJAN MD Primary Care Provider: UMBERTO WILD DO Allergies Allergies povidone-iodine [From Betadine] Allergy (Severe, Verified 09/28/24 15:37) Rash soap [From Betadine] Allergy (Severe, Verified 09/28/24 15:37) Rash cefaclor [From Ceclor] Allergy (Verified 09/28/24 15:37) cephalexin monohydrate [From Keflex] Allergy (Verified 09/28/24 15:37) erythromycin base [Erythromycin Base] Allergy (Verified 09/28/24 15:37) erythromycin estolate [From Ilosone] Allergy (Verified 09/28/24 15:37) iron Allergy (Verified 09/28/24 15:37) latex Allergy (Verified 09/28/24 15:37) oxytetracycline [From Terramycin] Allergy (Verified 09/28/24 15:37) oxytetracycline HCl [From Terramycin] Allergy (Verified 09/28/24 15:37) Penicillins Allergy (Verified 09/28/24 15:37) Sulfa (Sulfonamide Antibiotics) Allergy (Verified 09/28/24 15:37) Hospital Summary - Hospital Course Hospital Course: 09/29/24 Ms. Hernández is a 68-year-old woman with a history of DM2, HTN, depression, and hypothyroidism. She presented to the ER on 09/28/24 after a fall. The patient notes that she has been feeling a little bit weaker for the past few days, with some lightheadedness on standing. Denies any vertigo or nausea. However, yesterday, she felt wobbly when she walked into the bathroom, and fell, hitting her right hip and eventually her head. Denies any loss of consciousness. However, she was unable to get up despite multiple attempts. She was eventually able to crawl to the bedroom, and so denies laying in any one spot for a prolonged period of time. Eventually she was able to call for help. Currently she denies any focal numbness or weakness. She denies any dysuria, but notes that she has increased urinary frequency for the past six weeks. Thinks she has been having good oral intake, but notes she has some dry mouth. She has some chest pain that is reproducible with palpation that she feels is a muscle strain after her fall. She also notes that she had the stomach flu last week, but thought she had fully recovered. CK 1286 today and IVF increased to 75ml/hr. Continue Levaquin for gram negative UTI. PT to eval. She states she is feeling better today. She denies CP, abd. pain, N/V/D. 09/30/24 Pt resting in bed. PT was able to eval pt yesterday and encouraged her to use a walker at home and she is refusing. She tells me today she is able to walk fine. CK continues to rise and today 1469 despite IV hydration. Pt admits to she did not eat yesterday as she just does not feel like it. She has been drinking fluids only. She denies CP, SOB, abd pain, N/V/D. Urine + for E-coli and pansensitive, continue Levaquin. 10/01/24 Pt resting in bed. She states she is feeling better and ready to d/c home today. She was able to eat several meals yesterday w/o concern. CK again went up to 1600 despite IVF. This will need OP f/u. Will recheck this afternoon and if ok may be able to d/c. She follows Dr. Umana for cardiology. She is refusing referral to hematology for thrombocytopenia. She states she will f/u with PCP OP. She denies any further concerns at this time. - Vitals & Intake/Output Vital Signs: Vital Signs Temperature 97.8 F 10/01/24 07:32 Pulse Rate 69 10/01/24 07:32 Respiratory Rate 16 10/01/24 07:32 Blood Pressure 146/68 10/01/24 07:32 O2 Sat by Pulse Oximetry 95 10/01/24 07:32 Intake & Output: Intake & Output 09/28/24 09/29/24 09/30/24 10/01/24 11:59 11:59 11:59 11:59 Intake Total 849 1880 2226 Output Total 800 1550 Balance 849 6825 676 Weight 54.9 kg - Lab Result Diagrams: 10/01/24 04:23 10/01/24 04:23 Lab Results-Last 24 Hrs: Lab Results-Last 24 Hours 04/09/30/24 09/30/24 Range/Units 11:14 16:32 21:39 WBC (3.98-10.04) x10^3/uL RBC (3.93-5.22) x10^6/uL Hgb (11.2-15.7) g/dL Hct (34.1-44.9) % MCV (79.4-94.8) fL MCH (25.6-32.2) pg MCHC (32.2-35.5) g/dL RDW (11.7-14.4) % Plt Count (182-369) x10^3/uL MPV (9.4-12.3) fL Sodium (135-145) mmol/L Potassium (3.5-5.1) mmol/L Chloride (98-107) mmol/L Carbon Dioxide (22-30) mmol/L Anion Gap (5-15) MEQ/L BUN (7-17) mg/dL Creatinine (0.52-1.04) mg/dL Estimated GFR ML/MIN Glucose (74-106) mg/dL POC Glucometer 194 H 143 H 141 H (74 to 106) mg/dL Calcium (8.4-10.2) mg/dL Total Bilirubin (0.2-1.3) mg/dL AST (14-36) U/L ALT (0-35) U/L Alkaline Phosphatase (38-126) U/L Creatine Kinase (30-135) U/L Serum Total Protein (6.3-8.2) g/dL Albumin (3.5-5.0) g/dL 10/01/24 10/01/24 10/01/24 Range/Units 04:23 04:23 04:23 WBC 4.1 (3.98-10.04) x10^3/uL RBC 4.11 (3.93-5.22) x10^6/uL Hgb 12.5 (11.2-15.7) g/dL Hct 37.2 (34.1-44.9) % MCV 90.5 (79.4-94.8) fL MCH 30.4 (25.6-32.2) pg MCHC 33.6 (32.2-35.5) g/dL RDW 13.2 (11.7-14.4) % Plt Count 163 L (182-369) x10^3/uL MPV 10.4 (9.4-12.3) fL Sodium 139 (135-145) mmol/L Potassium 3.6 (3.5-5.1) mmol/L Chloride 107 (98-107) mmol/L Carbon Dioxide 21 L (22-30) mmol/L Anion Gap 13.8 (5-15) MEQ/L BUN 8 (7-17) mg/dL Creatinine 0.95 (0.52-1.04) mg/dL Estimated GFR 64.9 ML/MIN Glucose 155 H (74-106) mg/dL POC Glucometer (74 to 106) mg/dL Calcium 8.5 (8.4-10.2) mg/dL Total Bilirubin 0.70 (0.2-1.3) mg/dL AST 80 H (14-36) U/L ALT 30 (0-35) U/L Alkaline Phosphatase 84 (38-126) U/L Creatine Kinase 1600 H (30-135) U/L Serum Total Protein 6.0 L (6.3-8.2) g/dL Albumin 3.4 L (3.5-5.0) g/dL 10/01/24 Range/Units 07:41 WBC (3.98-10.04) x10^3/uL RBC (3.93-5.22) x10^6/uL Hgb (11.2-15.7) g/dL Hct (34.1-44.9) % MCV (79.4-94.8) fL MCH (25.6-32.2) pg MCHC (32.2-35.5) g/dL RDW (11.7-14.4) % Plt Count (182-369) x10^3/uL MPV (9.4-12.3) fL Sodium (135-145) mmol/L Potassium (3.5-5.1) mmol/L Chloride (98-107) mmol/L Carbon Dioxide (22-30) mmol/L Anion Gap (5-15) MEQ/L BUN (7-17) mg/dL Creatinine (0.52-1.04) mg/dL Estimated GFR ML/MIN Glucose (74-106) mg/dL POC Glucometer 152 H (74 to 106) mg/dL Calcium (8.4-10.2) mg/dL Total Bilirubin (0.2-1.3) mg/dL AST (14-36) U/L ALT (0-35) U/L Alkaline Phosphatase (38-126) U/L Creatine Kinase (30-135) U/L Serum Total Protein (6.3-8.2) g/dL Albumin (3.5-5.0) g/dL Micro Results-Entire Visit: Microbiology 09/28/24 16:21 Urine Culture - Final Clean Catch Midstream Escherichia Coli Accuchecks Date 10/01/24 Date 09/30/24 Date 09/30/24 Time 07:50 Time 16:58 - Procedures and Test Procedures and Tests throughout Hospitalization: Therapy Orders & Screens 09/28/24 20:58 EKG REPEAT IN AM Comment: 09/28/24 22:55 PT Eval & Treat ( Order) ONCE Reason for Eval:: eval & treat, increasing falls Diagnosis: ALESSIA, UTI, gen weakness Discharge Exam General Appearance: no apparent distress, alert Neurologic Exam: alert, oriented x 3, cooperative, normal mood/affect, nml cerebellar function, sensation nml, No motor deficits Eye Exam: PERRL, EOMI, eyes nml inspection Ears, Nose, Throat Exam: normal ENT inspection, pharynx normal, moist mucous membranes Neck Exam: normal inspection, non-tender, supple, full range of motion Respiratory Exam: normal breath sounds, lungs clear, No respiratory distress Cardiovascular Exam: regular rate/rhythm, normal heart sounds Gastrointestinal/Abdomen Exam: soft, No tenderness, No mass Pelvic Exam: deferred Rectal Exam: deferred Back Exam: normal inspection, normal range of motion, No CVA tenderness, No vertebral tenderness Extremity Exam: normal inspection, normal range of motion Skin Exam: warm, dry, pale Final Diagnosis/Problem List - Final Discharge Diagnosis/Problem (1) Acute cystitis Current Visit: Yes Status: Acute Code(s): N30.00 - ACUTE CYSTITIS WITHOUT HEMATURIA (2) Rhabdomyolysis Current Visit: Yes Status: Acute Code(s): M62.82 - RHABDOMYOLYSIS (3) Fall Current Visit: Yes Status: Acute Code(s): W19.XXXA - UNSPECIFIED FALL, INITIAL ENCOUNTER (4) ALESSIA (acute kidney injury) Current Visit: Yes Status: Acute Code(s): N17.9 - ACUTE KIDNEY FAILURE, UNSPECIFIED (5) Elevated bilirubin Current Visit: Yes Status: Acute Code(s): R17 - UNSPECIFIED JAUNDICE (6) Thrombocytopenia Current Visit: Yes Status: Chronic (7) Type II diabetes mellitus Current Visit: Yes Status: Chronic (8) HTN (hypertension) Current Visit: Yes Status: Chronic Code(s): I10 - ESSENTIAL (PRIMARY) HYPERTENSION (9) Hypothyroidism Current Visit: Yes Status: Chronic Code(s): E03.9 - HYPOTHYROIDISM, UNSPECIFIED (10) Depression Current Visit: Yes Status: Chronic Code(s): F32.A - DEPRESSION, UNSPECIFIED (11) Cardiomegaly Current Visit: Yes Status: Acute Assessment & Plan: (1) Acute cystitis Current Visit: Yes Status: Acute Assessment & Plan: - With pyuria on UA, causing generalized weakness and falls. - Start Levaquin (allergy to penicillin and cephalexin) - Follow up urine culture - UC gram negative 09/30 - UC + e-coli, pansensitive - Continue Levaquin - CBC, CMP reviewed 10/01 - CBC, CMP reviewed Code(s): N30.00 - ACUTE CYSTITIS WITHOUT HEMATURIA (2) Rhabdomyolysis Current Visit: Yes Status: Acute Assessment & Plan: - CK 1287 - NS @ 75 ml/hr - 2:2 fall 09/30 - CK 1469 - Continue IVF - statin held 10/01 - CK 1600- recheck in 12 hours - Continue IVF Code(s): M62.82 - RHABDOMYOLYSIS (3) Fall Current Visit: Yes Status: Acute Assessment & Plan: - Ground level at home - PT eval - With injury to head - Radiology results reviewed - Fall 2:2 UTI/Cystitis - Encouraged pt to use walker Code(s): W19.XXXA - UNSPECIFIED FALL, INITIAL ENCOUNTER (4) ALESSIA (acute kidney injury) Current Visit: Yes Status: Acute Assessment & Plan: - Likely secondary to poor p.o. intake and related to her UTI, with perhaps some contribution from dehydration after gastroenteritis last week. Baseline creatinine appears to be around 1, currently up to 1.3. - Given NS 500 cc bolus in the ED - Start continuous NS at 50 milliliters per hour - increased to 75ml/hr - BMP reviewed - ALESSIA resolved Code(s): N17.9 - ACUTE KIDNEY FAILURE, UNSPECIFIED (5) Elevated bilirubin Current Visit: Yes Status: Acute Assessment & Plan: - No abdominal pain, no jaundice, no history of liver disease. - Repeat LFTs in the morning, including direct bilirubin - AST 66, ALT 31- improved, total bili 1.70, and direct bili 0.6- improved - IVF 09/30 - resolved Code(s): R17 - UNSPECIFIED JAUNDICE (6) Thrombocytopenia Current Visit: Yes Status: Chronic Assessment & Plan: - Appears chronic per old labs - Will need OP f/u with hematology - Plt 138- trend 09/30 - PLT 143- trend 10/01 - PLT 163 - Refuses referral to hematology- will f/u OP with PCP (7) Type II diabetes mellitus Current Visit: Yes Status: Chronic Assessment & Plan: -only on metformin at home. - Last hemoglobin A1c was 6.8 last month- controlled - Hold home metformin due to hospitalization and ALESSIA - Start low-dose sliding scale insulin - Diabetic diet 8. Hypertension - Blood pressure generally controlled. - Resume home lisinopril 5 mg daily (low enough dose that should not be affecting her renal function as above, which should be improving with fluids in any case) 9. Hypothyroidism - Continue home levothyroxine 25 mcg daily 10. Depression - Continue home Celexa - Repeat EKG in the morning reviewed Code(s): F32.A - DEPRESSION, UNSPECIFIED (11) Cardiomegaly Current Visit: Yes Status: Acute Assessment & Plan: - Mild as seen on CXR - No edema or SOB - Denies CP - EKG reviewed - Tele - Will need OP f/u - Trops x3 negative - F/U OP with Dr. Umana - No recent Echo to review Code(s): I51.7 - CARDIOMEGALY - Discharge Discharge Date: 10/01/24 Disposition: Home, Self-Care Condition: Stable Prescriptions: Continue Citalopram Hydrobromide 20 mg* [ceLEXa 20 MG] 20 mg PO DAILY Atorvastatin Calcium [Lipitor] 20 mg PO DAILY Omeprazole 20 MG [Prilosec 20 mg] 20 mg PO DAILY #14 capsule.dr Marin HCl [Metformin HCl ER] 500 mg PO DAILY Levothyroxine Sodium 25 Mcg [Synthroid 25 Mcg] 25 mcg PO DAILY Lisinopril 5 mg [Zestril 5 MG] 5 mg PO DAILY Multivit-Min/Folic Acid/[id number] [Alive Women's Gummy Vitamin] 1 tab PO DAILY Additional Instructions: HOLD LIPITOR until CK rechecked at PCP office, they will advise when to restart. Follow up with: UMBERTO WILD DO [Primary Care Provider, [facility]] - 10/06/24 3:30 pm
--- NOTE | 2024-10-01 18:01 | PCM.NOTE ---
Date and Time: 10/01/241758 Subjective Assessment: 09/29/24 Ms. Hernández is a 68-year-old woman with a history of DM2, HTN, depression, and hypothyroidism. She presented to the ER on 09/28/24 after a fall. The patient notes that she has been feeling a little bit weaker for the past few days, with some lightheadedness on standing. Denies any vertigo or nausea. However, yesterday, she felt wobbly when she walked into the bathroom, and fell, hitting her right hip and eventually her head. Denies any loss of consciousness. However, she was unable to get up despite multiple attempts. She was eventually able to crawl to the bedroom, and so denies laying in any one spot for a prolonged period of time. Eventually she was able to call for help. Currently she denies any focal numbness or weakness. She denies any dysuria, but notes that she has increased urinary frequency for the past six weeks. Thinks she has been having good oral intake, but notes she has some dry mouth. She has some chest pain that is reproducible with palpation that she feels is a muscle strain after her fall. She also notes that she had the stomach flu last week, but thought she had fully recovered. CK 1286 today and IVF increased to 75ml/hr. Continue Levaquin for gram negative UTI. PT to eval. She states she is feeling better today. She denies CP, abd. pain, N/V/D. 09/30/24 Pt resting in bed. PT was able to eval pt yesterday and encouraged her to use a walker at home and she is refusing. She tells me today she is able to walk fine. CK continues to rise and today 1469 despite IV hydration. Pt admits to she did not eat yesterday as she just does not feel like it. She has been drinking fluids only. She denies CP, SOB, abd pain, N/V/D. Urine + for E-coli and pansensitive, continue Levaquin. 10/01/24 Pt resting in bed. She states she is feeling better and ready to d/c home today. She was able to eat several meals yesterday w/o concern. CK again went up to 1600 despite IVF. This will need OP f/u. Will recheck this afternoon and if ok may be able to d/c. She follows Dr. Umana for cardiology. She is refusing referral to hematology for thrombocytopenia. She states she will f/u with PCP OP. She denies any further concerns at this time. Repeat CK went up more and Celexa stopped. Pt will need to stay tonight. Continue IVF - Review of Systems Constitutional: No Fever, No Chills Eyes: No Symptoms Ears, Nose, & Throat: No Symptoms Respiratory: No Cough, No Short Of Breath Cardiac: No Chest Pain, No Edema, No Syncope Abdominal/Gastrointestinal: No Abdominal Pain, No Nausea, No Vomiting, No Diarrh ea Genitourinary Symptoms: No Dysuria Musculoskeletal: No Back Pain, No Neck Pain Skin: No Rash Neurological: No Dizziness, No Focal Weakness, No Sensory Changes Psychological: No Symptoms Endocrine: No Symptoms Hematologic/Lymphatic: No Symptoms Immunological/Allergic: No Symptoms Objective Exam General Appearance: no apparent distress, alert Neurologic Exam: alert, oriented x 3, cooperative, normal mood/affect, nml cerebellar function, sensation nml, No motor deficits Skin Exam: normal color, warm, dry, pale Eye Exam: PERRL, EOMI, eyes nml inspection Ears, Nose, Throat Exam: normal ENT inspection, pharynx normal, moist mucous membranes Neck Exam: normal inspection, non-tender, supple, full range of motion Respiratory Exam: normal breath sounds, lungs clear, No respiratory distress Cardiovascular Exam: regular rate/rhythm, normal heart sounds Gastrointestinal/Abdomen Exam: soft, No tenderness, No mass Extremity Exam: normal inspection, normal range of motion Back Exam: normal inspection, normal range of motion, No CVA tenderness, No vertebral tenderness Pelvic Exam: deferred Rectal Exam: deferred Objective Data Vital Signs: Vital Signs - 24 hr Temp Pulse Resp BP Pulse Ox 10/01/24 15:47 97.8 F 75 16 159/72 95 10/01/24 11:49 96.8 F 66 16 140/70 93 L 10/01/24 07:32 97.8 F 69 16 146/68 95 10/01/24 04:00 96.8 F 65 17 138/76 95 10/01/24 00:00 97.0 F 69 20 140/65 94 L 09/30/24 20:00 97.5 F 76 19 145/65 96 Pain Assessment - Last Documented Pain Intensity 0 Pain Scale Used 0-10 Pain Scale Intake and Output: Intake & Output 09/29/24 09/30/24 10/01/24 10/02/24 11:59 11:59 11:59 11:59 Intake Total 849 1880 2226 1379 Output Total 800 1550 Balance 849 8602 453 4503 Weight 54.9 kg 54.9 kg Lab Results: Lab Results-Last 24 Hours 09/30/24 10/01/24 10/01/24 Range/Units 21:39 04:23 04:23 WBC 4.1 (3.98-10.04) x10^3/uL RBC 4.11 (3.93-5.22) x10^6/uL Hgb 12.5 (11.2-15.7) g/dL Hct 37.2 (34.1-44.9) % MCV 90.5 (79.4-94.8) fL MCH 30.4 (25.6-32.2) pg MCHC 33.6 (32.2-35.5) g/dL RDW 13.2 (11.7-14.4) % Plt Count 163 L (182-369) x10^3/uL MPV 10.4 (9.4-12.3) fL Sodium 139 (135-145) mmol/L Potassium 3.6 (3.5-5.1) mmol/L Chloride 107 (98-107) mmol/L Carbon Dioxide 21 L (22-30) mmol/L Anion Gap 13.8 (5-15) MEQ/L BUN 8 (7-17) mg/dL Creatinine 0.95 (0.52-1.04) mg/dL Estimated GFR 64.9 ML/MIN Glucose 155 H (74-106) mg/dL POC Glucometer 141 H (74 to 106) mg/dL Calcium 8.5 (8.4-10.2) mg/dL Total Bilirubin 0.70 (0.2-1.3) mg/dL AST 80 H (14-36) U/L ALT 30 (0-35) U/L Alkaline Phosphatase 84 (38-126) U/L Creatine Kinase (30-135) U/L Serum Total Protein 6.0 L (6.3-8.2) g/dL Albumin 3.4 L (3.5-5.0) g/dL 10/01/24 10/01/24 10/01/24 Range/Units 04:23 07:41 11:26 WBC (3.98-10.04) x10^3/uL RBC (3.93-5.22) x10^6/uL Hgb (11.2-15.7) g/dL Hct (34.1-44.9) % MCV (79.4-94.8) fL MCH (25.6-32.2) pg MCHC (32.2-35.5) g/dL RDW (11.7-14.4) % Plt Count (182-369) x10^3/uL MPV (9.4-12.3) fL Sodium (135-145) mmol/L Potassium (3.5-5.1) mmol/L Chloride (98-107) mmol/L Carbon Dioxide (22-30) mmol/L Anion Gap (5-15) MEQ/L BUN (7-17) mg/dL Creatinine (0.52-1.04) mg/dL Estimated GFR ML/MIN Glucose (74-106) mg/dL POC Glucometer 152 H 157 H (74 to 106) mg/dL Calcium (8.4-10.2) mg/dL Total Bilirubin (0.2-1.3) mg/dL AST (14-36) U/L ALT (0-35) U/L Alkaline Phosphatase (38-126) U/L Creatine Kinase 1600 H (30-135) U/L Serum Total Protein (6.3-8.2) g/dL Albumin (3.5-5.0) g/dL 10/01/24 10/01/24 Range/Units 16:18 16:20 WBC (3.98-10.04) x10^3/uL RBC (3.93-5.22) x10^6/uL Hgb (11.2-15.7) g/dL Hct (34.1-44.9) % MCV (79.4-94.8) fL MCH (25.6-32.2) pg MCHC (32.2-35.5) g/dL RDW (11.7-14.4) % Plt Count (182-369) x10^3/uL MPV (9.4-12.3) fL Sodium (135-145) mmol/L Potassium (3.5-5.1) mmol/L Chloride (98-107) mmol/L Carbon Dioxide (22-30) mmol/L Anion Gap (5-15) MEQ/L BUN (7-17) mg/dL Creatinine (0.52-1.04) mg/dL Estimated GFR ML/MIN Glucose (74-106) mg/dL POC Glucometer 151 H (74 to 106) mg/dL Calcium (8.4-10.2) mg/dL Total Bilirubin (0.2-1.3) mg/dL AST (14-36) U/L ALT (0-35) U/L Alkaline Phosphatase (38-126) U/L Creatine Kinase 1977 H (30-135) U/L Serum Total Protein (6.3-8.2) g/dL Albumin (3.5-5.0) g/dL Medications: Medications Generic Name Dose Route Start Last Admin Trade Name Freq PRN Reason Stop Dose Admin Acetaminophen 650 mg 09/28/24 20:58 09/29/24 10:43 Acetaminophen 325 Mg Tablet PO 10/28/24 20:57 650 mg Q6H PRN PRN Administration PAIN AND/OR FEVER Enoxaparin Sodium 40 mg 09/29/24 10:00 10/01/24 10:18 Enoxaparin Sodium 40 Mg/0.4 Ml Syringe SQ 10/29/24 09:59 Not Given DAILY ADOLFO Sodium Chloride 1,000 mls @ 75 mls/hr 09/28/24 20:58 10/01/24 12:03 Sodium Chloride 0.9% 1000 Ml IV 10/28/24 20:57 75 mls/hr .[id number] ADOLFO Administration Levofloxacin/Dextrose 250 mg in 50 mls @ 100 mls/hr 09/29/24 10:00 10/01/24 10:18 Levaquin 250mg/50ml D5w IV 10/29/24 09:59 100 mls/hr [id number] ADOLFO Administration Insulin Human Lispro 0 unit 09/28/24 20:58 09/29/24 13:29 Insulin Lispro 1 Unit SQ 10/28/24 20:57 2 unit UD PRN Administration HYPERGLYCEMIA Levothyroxine Sodium 25 mcg 09/29/24 10:00 10/01/24 10:18 Levothyroxine Sodium 25 Mcg Tablet PO 10/29/24 09:59 25 mcg DAILY ADOLFO Administration Lisinopril 5 mg 09/29/24 10:00 10/01/24 10:18 Lisinopril 5 Mg Tablet PO 10/29/24 09:59 5 mg DAILY ADOLFO Administration Pantoprazole Sodium 40 mg 09/29/24 10:00 10/01/24 10:18 Protonix (Pantoprazole) 40 Mg Tablet PO 10/29/24 09:59 40 mg DAILY ADOLFO Administration Discontinued Medications Generic Name Dose Route Start Last Admin Trade Name Freq PRN Reason Stop Dose Admin Citalopram Hydrobromide 20 mg 09/29/24 10:00 10/01/24 10:18 Citalopram Hydrobromide 20 Mg Tablet PO 10/29/24 09:59 20 mg DAILY ADOLFO Administration Sodium Chloride 500 mls @ 500 mls/hr 09/28/24 16:16 09/28/24 17:23 Sodium Chloride 0.9% 500 Ml IV 09/28/24 17:15 Infused .Q1H ONE Infusion Sodium Chloride Confirm 09/28/24 16:18 Sodium Chloride 0.9% 500 Ml Administered 09/28/24 16:19 Dose 500 mls @ ud IV .STK-MED ONE Levofloxacin/Dextrose 500 mg in 100 mls @ 100 mls/hr 09/28/24 17:21 09/28/24 19:56 Levofloxacin 500mg/100ml D5w IV 09/28/24 18:20 Infused STAT STA Infusion Magnesium Sulfate/Water 2 gm in 50 mls @ 100 mls/hr 09/28/24 17:22 09/28/24 18:03 Magnesium Sulf 2 G/50 Ml Bag IV 09/28/24 17:51 Infused ONCE ONE Infusion Magnesium Sulfate/Water Confirm 09/28/24 17:24 Magnesium Sulf 2 G/50 Ml Bag Administered 09/28/24 17:25 Dose 2 gm in 50 mls @ ud IV .STK-MED ONE Levofloxacin/Dextrose Confirm 09/28/24 18:09 Levofloxacin 500mg/100ml D5w Administered 09/28/24 18:10 Dose 500 mg in 100 mls @ ud IV .STK-MED ONE Non-Formulary Medication 2.5 mg 09/29/24 10:00 Lisinopril [Zestril] PO 10/29/24 09:59 DAILY ADOLFO Simvastatin 20 mg 09/29/24 10:00 09/30/24 10:07 Simvastatin 20 Mg Tablet PO 10/29/24 09:59 20 mg DAILY ADOLFO Administration Multi-Disciplinary Progress Notes: Multi-Disciplinary Progress Notes 10/01/24 10:00 (created 10/01/24 14:30) Case Management Note by Belen Vincent S/W PATIENT- SHE CONTINUES TO DECLINE ANY NEW NEEDS AT TIME OF DC. SHE CONTINUES TO REFUSE HHC/AND WALKER. SHE PLANS TO RETURN HOME TO HER PLF Initialized on 10/01/24 14:30 - END OF NOTE Assessment/Plan (1) Acute cystitis Current Visit: Yes Status: Acute Code(s): N30.00 - ACUTE CYSTITIS WITHOUT HEMATURIA (2) Rhabdomyolysis Current Visit: Yes Status: Acute Code(s): M62.82 - RHABDOMYOLYSIS (3) Fall Current Visit: Yes Status: Acute Code(s): W19.XXXA - UNSPECIFIED FALL, INITIAL ENCOUNTER (4) ALESSIA (acute kidney injury) Current Visit: Yes Status: Acute Code(s): N17.9 - ACUTE KIDNEY FAILURE, UNSPECIFIED (5) Elevated bilirubin Current Visit: Yes Status: Acute Code(s): R17 - UNSPECIFIED JAUNDICE (6) Thrombocytopenia Current Visit: Yes Status: Chronic (7) Type II diabetes mellitus Current Visit: Yes Status: Chronic (8) HTN (hypertension) Current Visit: Yes Status: Chronic Code(s): I10 - ESSENTIAL (PRIMARY) HYPERTENSION (9) Hypothyroidism Current Visit: Yes Status: Chronic Code(s): E03.9 - HYPOTHYROIDISM, UNSPECIFIED (10) Depression Current Visit: Yes Status: Chronic Code(s): F32.A - DEPRESSION, UNSPECIFIED (11) Cardiomegaly Current Visit: Yes Status: Acute Assessment & Plan: (1) Acute cystitis Current Visit: Yes Status: Acute Assessment & Plan: - With pyuria on UA, causing generalized weakness and falls. - Start Levaquin (allergy to penicillin and cephalexin) - Follow up urine culture - UC gram negative 09/30 - UC + e-coli, pansensitive - Continue Levaquin - CBC, CMP reviewed 10/01 - CBC, CMP reviewed Code(s): N30.00 - ACUTE CYSTITIS WITHOUT HEMATURIA (2) Rhabdomyolysis Current Visit: Yes Status: Acute Assessment & Plan: - CK 1287 - NS @ 75 ml/hr - 2:2 fall 09/30 - CK 1469 - Continue IVF - statin held 10/01 - CK 1600- recheck in 12 hours- repeat 1976- Celexa stopped - Continue IVF Code(s): M62.82 - RHABDOMYOLYSIS (3) Fall Current Visit: Yes Status: Acute Assessment & Plan: - Ground level at home - PT eval - With injury to head - Radiology results reviewed - Fall 2:2 UTI/Cystitis - Encouraged pt to use walker Code(s): W19.XXXA - UNSPECIFIED FALL, INITIAL ENCOUNTER (4) ALESSIA (acute kidney injury) Current Visit: Yes Status: Acute Assessment & Plan: - Likely secondary to poor p.o. intake and related to her UTI, with perhaps some contribution from dehydration after gastroenteritis last week. Baseline creatinine appears to be around 1, currently up to 1.3. - Given NS 500 cc bolus in the ED - Start continuous NS at 50 milliliters per hour - increased to 75ml/hr - BMP reviewed - ALESSIA resolved Code(s): N17.9 - ACUTE KIDNEY FAILURE, UNSPECIFIED (5) Elevated bilirubin Current Visit: Yes Status: Acute Assessment & Plan: - No abdominal pain, no jaundice, no history of liver disease. - Repeat LFTs in the morning, including direct bilirubin - AST 66, ALT 31- improved, total bili 1.70, and direct bili 0.6- improved - IVF 09/30 - resolved Code(s): R17 - UNSPECIFIED JAUNDICE (6) Thrombocytopenia Current Visit: Yes Status: Chronic Assessment & Plan: - Appears chronic per old labs - Will need OP f/u with hematology - Plt 138- trend 09/30 - PLT 143- trend 10/01 - PLT 163 - Refuses referral to hematology- will f/u OP with PCP (7) Type II diabetes mellitus Current Visit: Yes Status: Chronic Assessment & Plan: -only on metformin at home. - Last hemoglobin A1c was 6.8 last month- controlled - Hold home metformin due to hospitalization and ALESSIA - Start low-dose sliding scale insulin - Diabetic diet 8. Hypertension - Blood pressure generally controlled. - Resume home lisinopril 5 mg daily (low enough dose that should not be affecting her renal function as above, which should be improving with fluids in any case) 9. Hypothyroidism - Continue home levothyroxine 25 mcg daily 10. Depression - Continue home Celexa - Repeat EKG in the morning reviewed Code(s): F32.A - DEPRESSION, UNSPECIFIED (11) Cardiomegaly Current Visit: Yes Status: Acute Assessment & Plan: - Mild as seen on CXR - No edema or SOB - Denies CP - EKG reviewed - Tele - Will need OP f/u - Trops x3 negative - F/U OP with Dr. Umana - No recent Echo to review Code(s): I51.7 - CARDIOMEGALY Code(s): I51.7 - CARDIOMEGALY
[2024-10-02 05:33] LABS: Hematocrit 34.2 % (34.1-44.9); Hemoglobin 11.5 g/dL (11.2-15.7); Mean Corpuscular Hemoglobin 30.3 pg (25.6-32.2); Mean Corpuscular Hgb Concent. 33.6 g/dL (32.2-35.5); Mean Platelet Volume 10.3 fL (9.4-12.3); Platelet Count 154 x10^3/uL (182-369); Red Cell Distribution Width 13.2 % (11.7-14.4); White Blood Count 3.7 x10^3/uL (3.98-10.04)
[2024-10-02 06:44] LABS: ANION GAP 12.9 MEQ/L (5-15); BILIRUBIN,TOTAL 0.6 mg/dL (0.2-1.3); Calcium 8.1 mg/dL (8.4-10.2); Creatinine 1 0.84 mg/dL (0.52-1.04); EST GLOMERULAR FILTRATION RATE 75.2 ML/MIN; Potassium 3.6 mmol/L (3.5-5.1); Total Protein 5.5 g/dL (6.3-8.2)
[2024-10-02 07:10] VITALS: RESP 16
--- NOTE | 2024-10-02 09:26 | PCM.DS ---
Discharge Summary Date of Admission: 09/29/24 05:08 Date of Discharge: 10/02/24 Admitting Physician: YARA MAHAJAN MD Primary Care Provider: UMBERTO WILD DO Allergies Allergies povidone-iodine [From Betadine] Allergy (Severe, Verified 09/28/24 15:37) Rash soap [From Betadine] Allergy (Severe, Verified 09/28/24 15:37) Rash cefaclor [From Ceclor] Allergy (Verified 09/28/24 15:37) cephalexin monohydrate [From Keflex] Allergy (Verified 09/28/24 15:37) erythromycin base [Erythromycin Base] Allergy (Verified 09/28/24 15:37) erythromycin estolate [From Ilosone] Allergy (Verified 09/28/24 15:37) iron Allergy (Verified 09/28/24 15:37) latex Allergy (Verified 09/28/24 15:37) oxytetracycline [From Terramycin] Allergy (Verified 09/28/24 15:37) oxytetracycline HCl [From Terramycin] Allergy (Verified 09/28/24 15:37) Penicillins Allergy (Verified 09/28/24 15:37) Sulfa (Sulfonamide Antibiotics) Allergy (Verified 09/28/24 15:37) Hospital Summary - Hospital Course Hospital Course: 09/29/24 Ms. Hernández is a 68-year-old woman with a history of DM2, HTN, depression, and hypothyroidism. She presented to the ER on 09/28/24 after a fall. The patient notes that she has been feeling a little bit weaker for the past few days, with some lightheadedness on standing. Denies any vertigo or nausea. However, yesterday, she felt wobbly when she walked into the bathroom, and fell, hitting her right hip and eventually her head. Denies any loss of consciousness. However, she was unable to get up despite multiple attempts. She was eventually able to crawl to the bedroom, and so denies laying in any one spot for a prolonged period of time. Eventually she was able to call for help. Currently she denies any focal numbness or weakness. She denies any dysuria, but notes that she has increased urinary frequency for the past six weeks. Thinks she has been having good oral intake, but notes she has some dry mouth. She has some chest pain that is reproducible with palpation that she feels is a muscle strain after her fall. She also notes that she had the stomach flu last week, but thought she had fully recovered. CK 1286 today and IVF increased to 75ml/hr. Continue Levaquin for gram negative UTI. PT to eval. She states she is feeling better today. She denies CP, abd. pain, N/V/D. 09/30/24 Pt resting in bed. PT was able to eval pt yesterday and encouraged her to use a walker at home and she is refusing. She tells me today she is able to walk fine. CK continues to rise and today 1469 despite IV hydration. Pt admits to she did not eat yesterday as she just does not feel like it. She has been drinking fluids only. She denies CP, SOB, abd pain, N/V/D. Urine + for E-coli and pansensitive, continue Levaquin. 10/01/24 Pt resting in bed. She states she is feeling better and ready to d/c home today. She was able to eat several meals yesterday w/o concern. CK again went up to 1600 despite IVF. This will need OP f/u. Will recheck this afternoon and if ok may be able to d/c. She follows Dr. Sosa for cardiology. She is refusing referral to hematology for thrombocytopenia. She states she will f/u with PCP OP. She denies any further concerns at this time. Repeat CK went up more and Celexa stopped. Pt will need to stay tonight. Continue IVF 10/02/24 Pt feeling better and would like to d/c. Celexa was stopped yesterday evening but she still received in the AM. Today this was held as it can cause Rhabdo.Continue to hold Lipitor until labs rechecked with PCP. CK 1409 it is now going down. Yesterday evening it was as high as 1976. She has no further c/o and is walking well in her room. Will d/c today and she will need to f/u OP with PCP for lab recheck. - Vitals & Intake/Output Vital Signs: Vital Signs Temperature 98.1 F 10/02/24 07:09 Pulse Rate 70 10/02/24 07:09 Respiratory Rate 16 10/02/24 07:09 Blood Pressure 132/63 10/02/24 07:09 O2 Sat by Pulse Oximetry 97 10/02/24 07:09 Intake & Output: Intake & Output 09/29/24 09/30/24 10/01/24 10/02/24 11:59 11:59 11:59 11:59 Intake Total 849 1880 2226 3555 Output Total 800 1550 400 Balance 849 5033 087 5079 Weight 54.9 kg 54.9 kg - Lab Result Diagrams: 10/02/24 05:15 10/02/24 05:15 Lab Results-Last 24 Hrs: Lab Results-Last 24 Hours 10/01/24 10/01/24 10/01/24 Range/Units 11:26 16:18 16:20 WBC (3.98-10.04) x10^3/uL RBC (3.93-5.22) x10^6/uL Hgb (11.2-15.7) g/dL Hct (34.1-44.9) % MCV (79.4-94.8) fL MCH (25.6-32.2) pg MCHC (32.2-35.5) g/dL RDW (11.7-14.4) % Plt Count (182-369) x10^3/uL MPV (9.4-12.3) fL Sodium (135-145) mmol/L Potassium (3.5-5.1) mmol/L Chloride (98-107) mmol/L Carbon Dioxide (22-30) mmol/L Anion Gap (5-15) MEQ/L BUN (7-17) mg/dL Creatinine (0.52-1.04) mg/dL Estimated GFR ML/MIN Glucose (74-106) mg/dL POC Glucometer 157 H 151 H (74 to 106) mg/dL Calcium (8.4-10.2) mg/dL Total Bilirubin (0.2-1.3) mg/dL AST (14-36) U/L ALT (0-35) U/L Alkaline Phosphatase (38-126) U/L Creatine Kinase 1977 H (30-135) U/L Serum Total Protein (6.3-8.2) g/dL Albumin (3.5-5.0) g/dL 10/01/24 10/02/2410/02/25 Range/Units 22:21 05:15 05:15 WBC 3.7 L (3.98-10.04) x10^3/uL RBC 3.80 L (3.93-5.22) x10^6/uL Hgb 11.5 (11.2-15.7) g/dL Hct 34.2 (34.1-44.9) % MCV 90.0 (79.4-94.8) fL MCH 30.3 (25.6-32.2) pg MCHC 33.6 (32.2-35.5) g/dL RDW 13.2 (11.7-14.4) % Plt Count 154 L (182-369) x10^3/uL MPV 10.3 (9.4-12.3) fL Sodium 138 (135-145) mmol/L Potassium 3.6 (3.5-5.1) mmol/L Chloride 107 (98-107) mmol/L Carbon Dioxide 22 (22-30) mmol/L Anion Gap 12.9 (5-15) MEQ/L BUN 7 (7-17) mg/dL Creatinine 0.84 (0.52-1.04) mg/dL Estimated GFR 75.2 ML/MIN Glucose 154 H (74-106) mg/dL POC Glucometer 166 H (74 to 106) mg/dL Calcium 8.1 L (8.4-10.2) mg/dL Total Bilirubin 0.60 (0.2-1.3) mg/dL AST 77 H (14-36) U/L ALT 29 (0-35) U/L Alkaline Phosphatase 78 (38-126) U/L Creatine Kinase 1409 H (30-135) U/L Serum Total Protein 5.5 L (6.3-8.2) g/dL Albumin 3.0 L (3.5-5.0) g/dL 10/02/24 Range/Units 07:20 WBC (3.98-10.04) x10^3/uL RBC (3.93-5.22) x10^6/uL Hgb (11.2-15.7) g/dL Hct (34.1-44.9) % MCV (79.4-94.8) fL MCH (25.6-32.2) pg MCHC (32.2-35.5) g/dL RDW (11.7-14.4) % Plt Count (182-369) x10^3/uL MPV (9.4-12.3) fL Sodium (135-145) mmol/L Potassium (3.5-5.1) mmol/L Chloride (98-107) mmol/L Carbon Dioxide (22-30) mmol/L Anion Gap (5-15) MEQ/L BUN (7-17) mg/dL Creatinine (0.52-1.04) mg/dL Estimated GFR ML/MIN Glucose (74-106) mg/dL POC Glucometer 140 H (74 to 106) mg/dL Calcium (8.4-10.2) mg/dL Total Bilirubin (0.2-1.3) mg/dL AST (14-36) U/L ALT (0-35) U/L Alkaline Phosphatase (38-126) U/L Creatine Kinase (30-135) U/L Serum Total Protein (6.3-8.2) g/dL Albumin (3.5-5.0) g/dL Micro Results-Entire Visit: Microbiology 09/28/24 16:21 Urine Culture - Final Clean Catch Midstream Escherichia Coli Accuchecks Date 10/02/24 Date 10/01/24 Date 10/01/24 Time 07:27 Time 16:28 Time 11:52 - Procedures and Test Procedures and Tests throughout Hospitalization: Therapy Orders & Screens 09/28/24 20:58 EKG REPEAT IN AM Comment: 09/28/24 22:55 PT Eval & Treat ( Order) ONCE Reason for Eval:: eval & treat, increasing falls Diagnosis: ALESSIA, UTI, gen weakness Discharge Exam General Appearance: no apparent distress, alert Neurologic Exam: alert, oriented x 3, cooperative, normal mood/affect, nml cerebellar function, sensation nml, No motor deficits Eye Exam: PERRL, EOMI, eyes nml inspection Ears, Nose, Throat Exam: normal ENT inspection, pharynx normal, moist mucous membranes Neck Exam: normal inspection, non-tender, supple, full range of motion Respiratory Exam: normal breath sounds, lungs clear, No respiratory distress Cardiovascular Exam: regular rate/rhythm, normal heart sounds Gastrointestinal/Abdomen Exam: soft, No tenderness, No mass Pelvic Exam: deferred Rectal Exam: deferred Back Exam: normal inspection, normal range of motion, No CVA tenderness, No vertebral tenderness Extremity Exam: normal inspection, normal range of motion Skin Exam: warm, dry, pale Final Diagnosis/Problem List - Final Discharge Diagnosis/Problem (1) Acute cystitis Current Visit: Yes Status: Acute Code(s): N30.00 - ACUTE CYSTITIS WITHOUT HEMATURIA (2) Rhabdomyolysis Current Visit: Yes Status: Acute Code(s): M62.82 - RHABDOMYOLYSIS (3) Fall Current Visit: Yes Status: Acute Code(s): W19.XXXA - UNSPECIFIED FALL, INITIAL ENCOUNTER (4) ALESSIA (acute kidney injury) Current Visit: Yes Status: Acute Code(s): N17.9 - ACUTE KIDNEY FAILURE, UNSPECIFIED (5) Elevated bilirubin Current Visit: Yes Status: Acute Code(s): R17 - UNSPECIFIED JAUNDICE (6) Thrombocytopenia Current Visit: Yes Status: Chronic (7) Type II diabetes mellitus Current Visit: Yes Status: Chronic (8) HTN (hypertension) Current Visit: Yes Status: Chronic Code(s): I10 - ESSENTIAL (PRIMARY) HYPERTENSION (9) Hypothyroidism Current Visit: Yes Status: Chronic Code(s): E03.9 - HYPOTHYROIDISM, UNSPECIFIED (10) Depression Current Visit: Yes Status: Chronic Code(s): F32.A - DEPRESSION, UNSPECIFIED (11) Cardiomegaly Current Visit: Yes Status: Acute Assessment & Plan: (1) Acute cystitis Current Visit: Yes Status: Acute Assessment & Plan: - With pyuria on UA, causing generalized weakness and falls. - Start Levaquin (allergy to penicillin and cephalexin) - Follow up urine culture - UC gram negative 09/30 - UC + e-coli, pansensitive - Continue Levaquin - CBC, CMP reviewed 10/01 and 10/02 - CBC, CMP reviewed Code(s): N30.00 - ACUTE CYSTITIS WITHOUT HEMATURIA (2) Rhabdomyolysis Current Visit: Yes Status: Acute Assessment & Plan: - CK 1287 - NS @ 75 ml/hr - 2:2 fall 09/30 - CK 1469 - Continue IVF - statin held 10/01 - CK 1600- recheck in 12 hours- repeat 1976- Celexa stopped - Continue IVF 10/02 - Hold celexa today - CK 1409- improved - Will need need OP lab f/u with PCP to check if Celexa is causing CK elevation OP - Continue to hold lipitor OP until you discuss with PCP and have labs rechecked. Code(s): M62.82 - RHABDOMYOLYSIS (3) Fall Current Visit: Yes Status: Acute Assessment & Plan: - Ground level at home - PT eval - With injury to head - Radiology results reviewed - Fall 2:2 UTI/Cystitis - Encouraged pt to use walker Code(s): W19.XXXA - UNSPECIFIED FALL, INITIAL ENCOUNTER (4) ALESSIA (acute kidney injury) Current Visit: Yes Status: Acute Assessment & Plan: - Likely secondary to poor p.o. intake and related to her UTI, with perhaps some contribution from dehydration after gastroenteritis last week. Baseline creatinine appears to be around 1, currently up to 1.3. - Given NS 500 cc bolus in the ED - Start continuous NS at 50 milliliters per hour - increased to 75ml/hr - BMP reviewed - ALESSIA resolved Code(s): N17.9 - ACUTE KIDNEY FAILURE, UNSPECIFIED (5) Elevated bilirubin Current Visit: Yes Status: Acute Assessment & Plan: - No abdominal pain, no jaundice, no history of liver disease. - Repeat LFTs in the morning, including direct bilirubin - AST 66, ALT 31- improved, total bili 1.70, and direct bili 0.6- improved - IVF 09/30 - resolved Code(s): R17 - UNSPECIFIED JAUNDICE (6) Thrombocytopenia Current Visit: Yes Status: Chronic Assessment & Plan: - Appears chronic per old labs - Will need OP f/u with hematology - Plt 138- trend 09/30 - PLT 143- trend 10/01 - PLT 163 - Refuses referral to hematology- will f/u OP with PCP 10/02 - PLT 154 (7) Type II diabetes mellitus Current Visit: Yes Status: Chronic Assessment & Plan: -only on metformin at home. - Last hemoglobin A1c was 6.8 last month- controlled - Hold home metformin due to hospitalization and ALESSIA - Start low-dose sliding scale insulin - Diabetic diet 8. Hypertension - Blood pressure generally controlled. - Resume home lisinopril 5 mg daily (low enough dose that should not be affecting her renal function as above, which should be improving with fluids in any case) 9. Hypothyroidism - Continue home levothyroxine 25 mcg daily 10. Depression - Continue home Celexa - Repeat EKG in the morning reviewed Code(s): F32.A - DEPRESSION, UNSPECIFIED (11) Cardiomegaly Current Visit: Yes Status: Acute Assessment & Plan: - Mild as seen on CXR - No edema or SOB - Denies CP - EKG reviewed - Tele - Will need OP f/u - Trops x3 negative - F/U OP with Dr. Sosa - No recent Echo to review Code(s): I51.7 - CARDIOMEGALY Code(s): I51.7 - CARDIOMEGALY - Discharge Discharge Date: 10/02/24 Disposition: Home, Self-Care Condition: Stable Prescriptions: New Levofloxacin [Levofloxacin 250MG Tablet] 250 mg PO DAILY 5 Days #5 tab Continue Citalopram Hydrobromide 20 mg* [ceLEXa 20 MG] 20 mg PO DAILY Atorvastatin Calcium [Lipitor] 20 mg PO DAILY Omeprazole 20 MG [Prilosec 20 mg] 20 mg PO DAILY #14 capsule. Metformin HCl [Metformin HCl ER] 500 mg PO DAILY Levothyroxine Sodium 25 Mcg [Synthroid 25 Mcg] 25 mcg PO DAILY Lisinopril 5 mg [Zestril 5 MG] 5 mg PO DAILY Multivit-Min/Folic Acid/Mhm430 [Alive Women's Gummy Vitamin] 1 tab PO DAILY Additional Instructions: HOLD LIPITOR until CK rechecked at PCP office, they will advise when to restart. Follow up with: UMBERTO WILD DO [Primary Care Provider, [facility]] - 10/06/24 3:30 pm RAYMOND SOSA [CONSULTING PHYSICIAN, CARDIOLOGY] - 10/14/24 2:00 pm
[2024-10-02 11:30] VITALS: BP 144/70; PULSE 71; TEMP 97.9; O2SAT 98
== END 2024-10-02 12:10 | disposition home or self-care (01) | DRG 690 ==
LOC: ED 15:33 → MED SURG 20:55 → OBSVTOIN 09-29 05:08
PROVIDERS: ADMIT Internal Medicine; ATTEND Internal Medicine
DX: N30.00 Acute cystitis without hematuria (principal); M62.82 Rhabdomyolysis; N17.9 Acute kidney failure, unspecified; R17 Unspecified jaundice; W19.XXXA Unspecified fall, initial encounter; D69.6 Thrombocytopenia, unspecified; E11.9 Type 2 diabetes mellitus without complications; I10 Essential (primary) hypertension; E03.9 Hypothyroidism, unspecified; F32.A Depression, unspecified; B96.20 Unspecified Escherichia coli [E. coli] as the cause of diseases classified elsewhere; I51.7 Cardiomegaly; Z79.899 Other long term (current) drug therapy
CPT/HCPCS: 36415; 70450; 71045; 72125; 80048; 80053; 81001; 82248; 82550; 82947; 83605; 83735; 84145; 84484; 85025; 85027; 87077; 87086; 87186; 93005; 97161; 99285; G0378; Q3014; 99284; J1650; J1817; J1956; A9270-GY; J3475